=== PATIENT | female | born 1950 | race Caucasian/White ===

== ENCOUNTER → 2017-04-09 09:17 | Outpatient (CLI) | payer MEDICARE, OTHER, SELFPAY ==
--- NOTE | 2017-04-09 09:26 | RAD_ITS ---
STUDY: X-RAY - LUMBAR SPINE REASON FOR EXAM: Female, 67 years old. Back pain. TECHNIQUE: 5 view(s) of the lumbar spine were obtained including oblique views. COMPARISON: None FINDINGS: Normal lumbar lordosis. There is no substantial scoliosis. There is a normal alignment of the vertebrae. Normal vertebral bodies and endplates. Marked degree of disc space narrowing at the L4-L5 level. Facet joint osteoarthritis. There is atherosclerotic calcification of the abdominal aorta without a demonstrated aneurysm. RAD/L/S Spine Min 4 Views IMPRESSION: Moderate degree of disc space narrowing at the L4-L5 level. Electronically Signed: Matias Alvares MD at 15:32 EST Tel [phone], Service support ,
== END ==
PROVIDERS: Family Provider Family Medicine; PCP Family Medicine; Visit Provider Nurse Practitioner Family
DX: M54.5 Low back pain (principal)
CPT/HCPCS: 72110

== ENCOUNTER → 2017-07-05 10:37 | Outpatient (CLI) | payer MEDICARE, OTHER, SELFPAY ==
[2017-07-05 13:09] LABS: AST(SGOT) 22 U/L (15-37); Alanine Aminotransfer ALT/SGPT 30 U/L (13-56); Albumin, Serum 3.5 g/dL (3.2-5.0); Alkaline Phosphatase 84 U/L (45-117); Bilirubin, Direct 0.13 mg/dL (0.00-0.30); Cholesterol 244 mg/dL (200); Globulin 3.5 g/dL (2.2-4.2); High Density Lipoprotein 111 mg/dL; Triglycerides 133 mg/dL; Very Low Density Lipoprotein 27 mg/dL (5-40)
== END ==
PROVIDERS: Physician Assistant Medical; Family Provider Family Medicine; PCP Family Medicine; Visit Provider Internal Medicine Cardiovascular Disease
DX: E78.5 Hyperlipidemia, unspecified (principal); Z79.899 Other long term (current) drug therapy
CPT/HCPCS: 36415; 80061; 80076

== ENCOUNTER → 2017-10-14 06:36 | Outpatient (CLI) | payer MEDICARE, OTHER, SELFPAY ==
--- NOTE | 2017-10-14 16:09 | STRESSREP ---
Stress Test Report Pharmacologic myocardial perfusion stress test. 67-year-old lady with a history of chest pain. Stress protocol: Resting EKG demonstrates normal sinus rhythm with a rate of 71 beats minute normal intervals and noted resting blood pressure is 162/88 mmHg. 0.4 mg regadenoson was infused per usual protocol followed by rapid intravenous saline flush injection continuous EKG monitoring performed. The maximum heart rate attained was 93 bpm which was 61% maximum predicted heart rate maximum workload was 1 metabolic equivalent. Resting blood pressure is 162/88 final blood pressure of 148/86 centimeters of mercury. Myocardial perfusion protocol. 11.2 mCi of technetium 99m sestamibi was injected at rest. 0.4 mg of regadenoson was infused per usual protocol peak infusion 32.9 mCi of technetium 99m sestamibi was injected stress images were obtained stress and rest images were reconstructed and compared in the short axis vertical long horizontal long axis. Gated images were also obtained pre- Perfusion SPECT analysis: Review of the stress images demonstrate normal uptake of tracer noted in all areas of the myocardium. The resting images similarly demonstrate normal uptake of tracer noted in all areas myocardium no areas of reversibility were noted suggest ischemia. Gated SPECT analysis: The gated ejection fraction was 82%. Conclusion: Normal pharmacologic myocardial perfusion stress test. Preserved ejection fraction.
== END ==
PROVIDERS: Family Provider Family Medicine; PCP Family Medicine; Visit Provider Internal Medicine Cardiovascular Disease
DX: Z95.5 Presence of coronary angioplasty implant and graft (principal)
CPT/HCPCS: 78452; 93017; A9500; A4216; J2785

== ENCOUNTER 2017-10-20 16:19 | Emergency (ER) | payer MEDICARE, OTHER, SELFPAY ==
[2017-10-20 16:20] VITALS: BP 148/99; PULSE 86; RESP 16; TEMP 36.3; O2SAT 98; BMI 25.7
--- NOTE | 2017-10-20 17:01 | ED.VISSUMM ---
- ER Visit Summary Date of Service: 10/20/17 Chief Complaint: Right hip pain History of Present Illness: The patient is a 67 F who presents with right hip pain. She complains of pain in the right buttock radiating around to the side of the right hip and down the right side of her thigh. She has a history of prior similar symptoms. She states that she was told that she likely needs a laminectomy. She also reports a history of bursitis. She denies any fall or injury. She denies any fevers or abdominal pain. She denies any prior back surgery. No urinary retention or fecal incontinence. No weakness or paresthesias. Physical Examination: Afebrile vitals are unremarkable Heart regular rate and rhythm Lungs clear Patient does have some reproducible lateral right hip tenderness Negative straight leg raise bilaterally 5 out of 5 dorsiflexion, plantarflexion, extensor hallucis longus and easily palpable dorsalis pedis pulse Test Results: Not indicated Emergency Department Course and Treatment: Patient's history and examination are most consistent with a lumbar radiculopathy, sciatica. She was advised on supportive care. We will place her on a prednisone taper. She did recently take prednisone for a rash so I will do a taper rather than a burst. She was also given a prescription for naproxen. She was advised on signs and symptoms to monitor for and conditions which should prompt return here to the emergency department and she was discharged. Treatment Plan: [] Disposition: Discharge Impression: Sciatica This note was generated with [employer] dictation software. It may contain incorrect words, spelling, and punctuation that were not noted in review of the chart prior to signing ED Disposition - Plan for ED Patient: Chief Complaint: Lower Extremity Injury Referrals: Golden Maloney MD [Primary Care Provider] -
--- NOTE | 2017-10-20 17:03 | ED.DEP ---
ED Disposition - Plan for ED Patient: Chief Complaint: Lower Extremity Injury Instructions: ED Sciatica Prescriptions: Prednisone 10 mg PO UD #33 tab Naproxen [Naprosyn] 500 mg PO BID #14 tab Referrals: Golden Maloney MD [Primary Care Provider] -
== END 2017-10-20 17:22 | disposition home or self-care (01) ==
LOC: ED 17:21
PROVIDERS: Emergency Provider Emergency Medicine; Family Provider Family Medicine; PCP Family Medicine
DX: M54.31 Sciatica, right side (principal); K21.9 Gastro-esophageal reflux disease without esophagitis; I10 Essential (primary) hypertension; E78.00 Pure hypercholesterolemia, unspecified; Z79.82 Long term (current) use of aspirin; Z79.899 Other long term (current) drug therapy
CPT/HCPCS: 99282

== ENCOUNTER → 2017-11-28 08:09 | Outpatient (CLI) | payer MEDICARE, OTHER, SELFPAY ==
--- NOTE | 2017-11-28 08:11 | BI_ITS ---
MAMMOGRAPHY - BILATERAL SCREENING REASON FOR EXAM: Female, 67 years old. Routine annual screening examination. PERTINENT HISTORY: Non-contributory. TECHNIQUE: Digital bilateral breast agnes (3D mammographic acquisition) in the CC and MLO projections. 2-D mediolateral oblique (MLO) and craniocaudad (CC) views of both breasts were obtained. CAD: Full Field Digital Mammography with Computer Added Detection was performed. COMPARISON: Comparison is made with prior study dated November 19, 2016. FINDINGS: Breast Composition: The breasts are heterogeneously dense, which may obscure small masses. There are no dominant masses or suspicious calcifications. No other significant abnormalities are identified. There has been no significant change since the prior study. BI/SCREENING MAMM (CAD), BILAT IMPRESSION: Stable bilateral screening mammogram. Yearly follow-up mammogram recommended. (A) ASSESSMENT CATEGORY: BIRADS Category 1: Negative. A letter regarding these results will be sent to the patient by the facility within 30 days. Approximately 10% of breast cancers are not detected by mammography. A normal mammogram should not delay biopsy of a clinically suspicious abnormality. [id number] Electronically Signed: Matias Alvares MD at 9:24 EDT Tel [phone], Service support ,
== END ==
PROVIDERS: Family Provider Family Medicine; PCP Family Medicine; Visit Provider Nurse Practitioner Women's Health
DX: Z12.31 Encounter for screening mammogram for malignant neoplasm of breast (principal)
CPT/HCPCS: 77063; 77067

== ENCOUNTER → 2017-12-24 13:14 | Outpatient (CLI) | payer MEDICARE, OTHER, SELFPAY ==
--- NOTE | 2017-12-24 13:30 | BD_ITS ---
STUDY: DUAL ENERGY X-RAY ABSORPTIOMETRY / DXA REASON FOR EXAM: Female, 67 years old. The patient is postmenopausal. Loss of height. TECHNIQUE: Bone Mineral Density (BMD) measurements of lumbar spine and bilateral hips were obtained. COMPARISON: Comparison is made with prior study dated August 11, 2015. FINDINGS: Lumbar Spine (L1-L4): g/cm2 (1.009) / T-score (-1.6) / Z-score (0.1) Findings are suggestive of osteopenia with a moderate fracture risk. Increased thoracic kyphosis. Left Femur Total: g/cm2 (0.759) / T-score (-2.0) / Z-score (-0.6) Left Femoral Neck: g/cm2 (0.739) / T-score (-2.2) / Z-score (-0.5) Right Femur Total: g/cm2 (0.725) / T-score (-2.2) / Z-score (-0.9) Right Femoral Neck: g/cm2 (0.719) / T-score (-2.3) / Z-score (-0.7) The T-Scores on the most recent prior examination were: Lumbar Spine (L1-L4): There has been worsening of bone density since the previous examination. Left Femur Total: which represents a worsening of 1.2%. Right Femur Total: which represents a worsening of 4.7%. BD/Dexa Bone Density Study IMPRESSION: The patient is considered osteopenic as outlined below according to World Joni Organization (WHO) criteria with a moderate fracture risk. There has been worsening of bone density since the previous examination. Reference Information: The T-score is the number of standard deviations above or below the standard which is normal for young adults at their peak bone mineral density. The World Health Organization (WHO) interprets the T-scores as follows: Above -1 Normal bone density Between -1 and -2.5 Osteopenia Equal to / or below -2.5 Osteoporosis As a practical clinical guideline, osteopenia may be graded as follows: Mild -1 through -1.5 Moderate -1.6 through -2.0 Severe -2.1 through -2.4 The Z-score is the number of standard deviations above or below age-matched controls. A Z-score of less than -1.5 would be considered abnormal. References: 1. NIH Osteoporosis and Related Bone Diseases http://www.osteo.org 2. International Society for Clinical Densitometry http://www.iscd.org 3. National Osteoporosis Foundation http://www.nof.org Electronically Signed: Matias Alvares MD at 11:26 EDT Tel [phone], Service support ,
== END ==
PROVIDERS: Family Provider Family Medicine; PCP Family Medicine; Visit Provider Obstetrics & Gynecology
DX: E28.39 Other primary ovarian failure (principal)
CPT/HCPCS: 77080

== ENCOUNTER → 2018-01-10 10:36 | Outpatient (CLI) | payer MEDICARE, OTHER, SELFPAY ==
[2018-01-10 11:33] LABS: AST(SGOT) 21 U/L (15-37); Alanine Aminotransfer ALT/SGPT 26 U/L (13-56); Albumin, Serum 3.7 g/dL (3.2-5.0); Alkaline Phosphatase 94 U/L (45-117); Bilirubin, Direct 0.16 mg/dL (0.00-0.30); Cholesterol 249 mg/dL (200); Globulin 3.5 g/dL (2.2-4.2); High Density Lipoprotein 126 mg/dL; Protein, Total 7.2 g/dL (6.4-8.2); Triglycerides 108 mg/dL; Very Low Density Lipoprotein 22 mg/dL (5-40)
== END ==
PROVIDERS: Family Provider Family Medicine; PCP Family Medicine; Referring Provider Internal Medicine Cardiovascular Disease; Visit Provider Internal Medicine Cardiovascular Disease
DX: E78.5 Hyperlipidemia, unspecified (principal)
CPT/HCPCS: 36415; 80061; 80076

== ENCOUNTER → 2018-03-28 12:47 | Outpatient (CLI) | payer MEDICARE, OTHER, SELFPAY ==
[2017-11-28 09:09] VITALS: BMI 26.1
[2018-03-28 14:04] LABS: Anion Gap 9 (5-15); BUN 10 mg/dL (7-18); BUN/Creat Ratio 12.7 RATIO (10-20); Calcium,Total 8.7 mg/dL (8.5-10.1); Chloride 93 mmol/L (98-107); Creatinine, Serum 0.79 mg/dL (0.55-1.02); EST Glomerular Filtration Rate 77 mL/min (>60); Est Glom Filt Rate - Afr Amer 93 mL/min (>60); Glucose 114 mg/dL (74-106); Potassium 3.5 mmol/L (3.5-5.1); Sodium Level 130 mmol/L (136-145)
== END ==
PROVIDERS: Family Provider Family Medicine; PCP Family Medicine; Referring Provider Family Medicine; Visit Provider Family Medicine
DX: E87.1 Hypo-osmolality and hyponatremia (principal)
CPT/HCPCS: 36415; 80048

== ENCOUNTER → 2018-07-03 | Outpatient (CLI) | payer MEDICARE, OTHER, SELFPAY ==
[2018-07-03 11:39] LABS: AST(SGOT) 21 U/L (15-37); Alanine Aminotransfer ALT/SGPT 22 U/L (13-56); Albumin, Serum 3.6 g/dL (3.2-5.0); Alkaline Phosphatase 108 U/L (45-117); Cholesterol 239 mg/dL (200); Globulin 3.3 g/dL (2.2-4.2); High Density Lipoprotein 118 mg/dL; Protein, Total 6.9 g/dL (6.4-8.2); Triglycerides 123 mg/dL; Very Low Density Lipoprotein 25 mg/dL (5-40)
== END | disposition home or self-care (01) ==
PROVIDERS: Family Provider Family Medicine; PCP Family Medicine; Referring Provider Internal Medicine Cardiovascular Disease; Visit Provider Internal Medicine Cardiovascular Disease
DX: E78.5 Hyperlipidemia, unspecified (principal)
CPT/HCPCS: 36415; 80061; 80076

== ENCOUNTER → 2018-08-25 | Outpatient (CLI) | payer MEDICARE, OTHER, SELFPAY ==
--- NOTE | 2018-08-25 08:48 | RAD_ITS ---
STUDY: X-RAY - LUMBAR SPINE REASON FOR EXAM: Female, 68 years old. Backache for 2 weeks, surgery 5 months prior TECHNIQUE: 5 view(s) of the lumbar spine were obtained. COMPARISON: 08/04/2017 FINDINGS: Lumbar spine is intact. There is grade 1 anterolisthesis of L4 on L5, approximately 6 mm which is new since surgery.. Posterior elements are obscured by hardware. There is L3, L4, L5 pedicular screw fusion with vertical interconnecting rods. Hardware is intact, in the expected position with normal bone interface. Mineralization is diffusely decreased. Paraspinous soft tissue shadows are unremarkable. SI joints are normal. RAD/L/S Spine Min 4 Views IMPRESSION: 1. Development of new grade 1 L4-L5 anterolisthesis. 2. Otherwise expected appearance of L3-L5 hardware dorsal fusion. Electronically Signed: Jayshree Verma, at 16:11 EDT Tel , Service support ,
== END | disposition home or self-care (01) ==
LOC: MTRAD 08:46
PROVIDERS: Family Provider Family Medicine; PCP Family Medicine; Referring Provider Family Medicine; Visit Provider Family Medicine
DX: M54.5 Low back pain (principal)
CPT/HCPCS: 72110

== ENCOUNTER → 2018-12-08 | Outpatient (CLI) | payer MEDICARE, OTHER, SELFPAY ==
[2018-09-18 08:39] VITALS: BMI 24.3
--- NOTE | 2018-12-08 10:15 | BI_ITS ---
MAMMOGRAPHY - BILATERAL SCREENING 3-D TOMOSYNTHESIS REASON FOR EXAM: Female, 68 years old. Screening BILATERAL DIGITAL MAMMOGRAM WITH TOMOSYNTHESIS: Mediolateraloblique and craniocaudal views demonstrate no evidence of dominant parenchymal masses. No cluster of microcalcifications or architectural distortion is seen. No evidence of skin thickening is identified. There has been no significant change since 11/28/2017. Breast Density: The breast tissue is extremely dense which may lower the sensitivity of mammography. CAD was used to assist in final assessment. IMPRESSION: NORMAL MAMMOGRAM BILATERALLY. FINAL ASSESSMENT: BIRAD 1 (NEGATIVE) YEARLY MAMMOGRAM RECOMMENDED Approximately 10% of breast cancers are not detected by mammography. A normal mammogram should not delay biopsy of a clinically suspicious abnormality. Electronically Signed: Golden Reed, at 17:24 EDT Tel , Service support , BI/SCREEN MAMM (CAD) W/EWA BRENNAN
== END | disposition home or self-care (01) ==
LOC: OPBI 10:13
PROVIDERS: Family Provider Family Medicine; PCP Family Medicine; Referring Provider Obstetrics & Gynecology; Visit Provider Obstetrics & Gynecology
DX: Z12.31 Encounter for screening mammogram for malignant neoplasm of breast (principal)
CPT/HCPCS: 77063; 77067

== ENCOUNTER → 2019-01-15 | Outpatient (CLI) | payer MEDICARE, OTHER, SELFPAY ==
[2018-12-08 11:38] VITALS: BMI 24.3
[2019-01-15 12:12] LABS: AST(SGOT) 19 U/L (15-37); Alanine Aminotransfer ALT/SGPT 20 U/L (13-56); Albumin, Serum 3.7 g/dL (3.2-5.0); Alkaline Phosphatase 96 U/L (45-117); Bilirubin, Direct 0.15 mg/dL (0.00-0.30); Cholesterol 228 mg/dL (200); Globulin 3.4 g/dL (2.2-4.2); High Density Lipoprotein 97 mg/dL; Protein, Total 7.1 g/dL (6.4-8.2); Triglycerides 107 mg/dL; Very Low Density Lipoprotein 21 mg/dL (5-40)
== END | disposition home or self-care (01) ==
LOC: LAB 10:57
PROVIDERS: Family Provider Family Medicine; PCP Family Medicine; Referring Provider Physician Assistant Medical; Visit Provider Physician Assistant Medical
DX: E78.5 Hyperlipidemia, unspecified (principal)
CPT/HCPCS: 36415; 80061; 80076

== ENCOUNTER → 2019-07-09 10:56 | Outpatient (CLI) | payer MEDICARE, OTHER, SELFPAY ==
[2018-12-08 11:38] VITALS: BMI 24.3
[2019-07-09 11:59] LABS: AST(SGOT) 22 U/L (15-37); Alanine Aminotransfer ALT/SGPT 20 U/L (13-56); Albumin, Serum 3.9 g/dL (3.2-5.0); Alkaline Phosphatase 87 U/L (45-117); Bilirubin, Direct 0.17 mg/dL (0.00-0.30); Cholesterol 202 mg/dL (200); Globulin 3.1 g/dL (2.2-4.2); High Density Lipoprotein 110 mg/dL; Triglycerides 96 mg/dL; Very Low Density Lipoprotein 19 mg/dL (5-40)
== END ==
PROVIDERS: PCP Family Medicine; Referring Provider Internal Medicine Cardiovascular Disease; Visit Provider Internal Medicine Cardiovascular Disease
DX: E78.00 Pure hypercholesterolemia, unspecified (principal)
CPT/HCPCS: 36415; 80061; 80076

== ENCOUNTER → 2019-07-28 15:38 | Outpatient (CLI) | payer MEDICARE, OTHER, SELFPAY ==
[2019-07-28 13:25] VITALS: BMI 24.3
== END ==
PROVIDERS: PCP Family Medicine; Referring Provider Nurse Practitioner Women's Health; Visit Provider Nurse Practitioner Women's Health
DX: R30.0 Dysuria (principal); N94.9 Unspecified condition associated with female genital organs and menstrual cycle
CPT/HCPCS: 87086; 87088

== ENCOUNTER → 2019-09-30 13:43 | Outpatient (CLI) | payer MEDICARE, OTHER, SELFPAY ==
[2019-09-17 09:48] VITALS: BMI 24.0
--- NOTE | 2019-09-30 13:44 | ECHOD_ITS ---
Reason For Study: CAD/ASHD Procedure This was a 2D Doppler, Color Flow transthoracic echocardiogram. Exam performed in department. Left Ventricle Normal LV size. Moderate concentric left ventricular hypertrophy. Left ventricular systolic function is normal. The estimated ejection fraction is 65 %. Stage 1 diastolic dysfunction. No regional wall motion abnormalities noted. Right Ventricle Normal RV size. Normal systolic function. Atria Normal left atrium. Normal right atrium. Mitral Valve There is mild mitral annular calcification. Tricuspid Valve Normal tricuspid valve. Aortic Valve Normal aortic valve. Trisinus/trileaflet aortic valve. Pulmonic Valve Normal pulmonic valve. Great Vessels Normal aortic root. The pulmonary artery is normal size. Normal inferior vena cava. Pericardium/Pleural No pericardial effusion. MMode/2D Measurements & Calculations LVIDd: 3.5 cm IVSd: 1.5 cm Ao root diam: 3.2 cm LVIDs: 1.7 cm LVPWd: 1.5 cm LA dimension: 3.3 cm FS: 50.5 % LAV(MOD-bp): 46.7 ml LA A4 area: 16.6 cm2 RA A4 area: 15.0 cm2 LAV(MOD-bp) Indexed: 27.8 ml/m2 LAV(MOD-sp2): 52.3 ml LAV(MOD-sp4): 41.1 ml Time Measurements MV dec time: 0.26 sec Doppler Measurements & Calculations MV E max michael: 118.6 cm/sec Lat Peak E' Michael: 6.5 cm/sec Med Peak E' Michael: 5.9 cm/sec MV A max michael: 145.1 cm/sec E/E' lat: 18.2 E/E' med: 20.0 MV E/A: 0.82 MV V2 max: 157.9 cm/sec MV P1/2t max michael: 139.6 cm/sec Ao V2 max: 142.7 cm/sec MV max P.0 mmHg MV P1/2t: 106.8 msec Ao max P.1 mmHg MV V2 mean: 90.0 cm/sec MV dec slope: 383.0 cm/sec2 MV mean P.8 mmHg MVA(P1/2t): 2.1 cm2 MV V2 VTI: 50.9 cm LV V1 max: 131.7 cm/sec PA V2 max: 92.5 cm/sec LV V1 max P.9 mmHg Interpretation Summary Normal LV size. Left ventricular systolic function is normal. The estimated ejection fraction is 65 %. Moderate concentric left ventricular hypertrophy. Stage 1 diastolic dysfunction. Ordering Physician: Jeb Turner Referring Physician: Jeb Turner Performed By: Uriah Lea RCS
== END ==
PROVIDERS: PCP Family Medicine; Referring Provider Internal Medicine Cardiovascular Disease; Visit Provider Internal Medicine Cardiovascular Disease
DX: I25.10 Atherosclerotic heart disease of native coronary artery without angina pectoris (principal); R06.00 Dyspnea, unspecified
CPT/HCPCS: 93306

== ENCOUNTER → 2019-10-07 13:46 | Outpatient (CLI) | payer MEDICARE, OTHER, SELFPAY ==
[2019-09-17 09:48] VITALS: BMI 24.0
== END ==
PROVIDERS: PCP Family Medicine; Referring Provider Family Medicine; Visit Provider Family Medicine
DX: Z11.59 Encounter for screening for other viral diseases (principal)
CPT/HCPCS: 87635; U0003

== ENCOUNTER → 2019-10-12 16:50 | Outpatient (CLI) | payer MEDICARE, OTHER, SELFPAY ==
[2019-09-17 09:48] VITALS: BMI 24.0
--- NOTE | 2019-10-12 16:53 | RAD_ITS ---
STUDY: X-RAY - LEFT FOOT CLINICAL: Female, 69 years old. Pain and swelling across the dorsum of the foot. No known injury. TECHNIQUE: 3 view(s) of the foot. COMPARISON: None. FINDINGS: There is a plantar calcaneal spur. Talus and tarsal bones. Mild arthrosis of the visualized subtalar, talonavicular, calcaneocuboid, tarsal and tarsometatarsal articulations. Normal metatarsi. There is degenerative arthrosis of the metatarsophalangeal joint of the hallux with a hallux valgus deformity. Normal tibial and fibular sesamoid bones. Normal phalanges of the great toe. Normal second through fifth metatarsophalangeal joints. Osteoarthrosis of interphalangeal joints of the lesser toes. Normal phalanges of the lesser toes. The soft tissue structures are unremarkable. 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 Electronically Signed: Zander Nova DO at 22:57 EDT Tel [phone], Service support ,
== END ==
PROVIDERS: PCP Family Medicine; Referring Provider Family Medicine; Visit Provider Family Medicine
DX: M79.672 Pain in left foot (principal)
CPT/HCPCS: 73630

== ENCOUNTER → 2019-12-10 09:01 | Outpatient (CLI) | payer MEDICARE, OTHER, SELFPAY ==
[2019-09-17 09:48] VITALS: BMI 24.0
[2019-12-10 10:13] LABS: Hematocrit 25.4 % (37-47); Hemoglobin 7.5 g/dL (12.0-15.0); Mean Corp Hgb Conc 29.5 g/dL (32-36); Mean Corpuscular Hgb 21.2 pg (27.0-32.0); Mean Platelet Vol. 10.9 fl (6.2-12.0); Platelet Count 341 K/mm3 (150-450); RBC Distribution Width CV 16.1 % (11.6-14.6); RBC Distribution Width SD 41.3 fl (35.1-43.9); Red Blood Count 3.53 M/mm3 (4.2-5.4); White Blood Count 5.5 K/mm3 (4.4-11.0)
[2019-12-10 10:30] LABS: Anion Gap 6 (5-15); BUN 16 mg/dL (7-18); BUN/Creat Ratio 19.5 RATIO (10-20); Calcium,Total 8.7 mg/dL (8.5-10.1); Chloride 99 mmol/L (98-107); Creatinine, Serum 0.82 mg/dL (0.55-1.02); EST Glomerular Filtration Rate 73 mL/min (>60); Est Glom Filt Rate - Afr Amer 89 mL/min (>60); Glucose 121 mg/dL (74-106); Magnesium 2.1 mg/dL (1.6-2.6); Potassium 3.5 mmol/L (3.5-5.1); Sodium Level 133 mmol/L (136-145); Thyroid Stim Hormone (TSH) 1.03 uIU/mL (0.358-3.74)
[2019-12-11 08:53] LABS: RET-HE 21.4 pg (30-35); Reticulocyte Count 1.59 % (0.5-1.5)
[2019-12-11 09:09] LABS: Ferritin 4 ng/mL (8-252); Iron 14 ug/dL (50-170)
== END ==
PROVIDERS: PCP Family Medicine; Referring Provider Family Medicine; Visit Provider Family Medicine
DX: R00.2 Palpitations (principal); E28.39 Other primary ovarian failure
CPT/HCPCS: 36415; 80048; 82728; 83540; 83735; 84443; 85027; 85045

== ENCOUNTER → 2019-12-14 12:28 | Outpatient (CLI) | payer MEDICARE, OTHER, SELFPAY ==
[2018-12-08 11:38] VITALS: BMI 24.3
[2019-09-17 09:48] VITALS: BMI 24.0
--- NOTE | 2019-12-14 12:28 | BI_ITS ---
MAMMOGRAPHY - BILATERAL SCREENING REASON FOR EXAM: Female, 69 years old. Routine annual screening examination. PERTINENT HISTORY: Non-contributory. TECHNIQUE: Digital bilateral breast ewa (3D mammographic acquisition) in the CC and MLO projections. 2-D mediolateral oblique (MLO) and craniocaudad (CC) views of both breasts were obtained. CAD: Full Field Digital Mammography with Computer Added Detection was performed. COMPARISON: Comparison is made with prior examination dated 12/08/2018 and 11/28/2017. FINDINGS: Breast Composition: The breasts are heterogeneously dense, which may obscure small masses. There are no dominant masses or suspicious calcifications. No other significant abnormalities are identified. There has been no significant change since the prior study. BI/SCREEN MAMM (CAD) W/EWA BILAT IMPRESSION: Stable bilateral screening mammogram. Yearly follow-up mammogram recommended. (A) ASSESSMENT CATEGORY: BIRADS Category 1: Negative. A letter regarding these results will be sent to the patient by the facility within 30 days. Approximately 10% of breast cancers are not detected by mammography. A normal mammogram should not delay biopsy of a clinically suspicious abnormality. [id number] Electronically Signed: Matias Alvares, at 8:47 EDT , Service support ,
== END ==
PROVIDERS: PCP Family Medicine; Referring Provider Obstetrics & Gynecology; Visit Provider Obstetrics & Gynecology
DX: Z12.31 Encounter for screening mammogram for malignant neoplasm of breast (principal)
CPT/HCPCS: 77063; 77067

== ENCOUNTER → 2019-12-14 16:31 | Outpatient (CLI) | payer MEDICARE, OTHER, SELFPAY ==
[2019-12-14 13:10] VITALS: BMI 24.0
[2019-12-14 18:47] LABS: Absolute Lymphocyte Count 1.51 X10^3/uL (0.83-4.51); Absolute Neutrophil Count 3.8 X10^3/uL (2.0-7.7); Basophil# 0.02 X10^3/uL; Basophil% 0.3 % (0-1); Eosinophil# 0.03 X10^3/uL; Eosinophils% 0.5 % (0-5); Hematocrit 25.2 % (37-47); Hemoglobin 7.4 g/dL (12.0-15.0); Lymphocyte # 1.51 X10^3/ul (4.0); Lymphocyte % 24.4 % (19-41); Mean Corp Hgb Conc 29.4 g/dL (32-36); Mean Corpuscular Hgb 21.2 pg (27.0-32.0); Mean Corpuscular Volume 72.2 fL (81-99); Mean Platelet Vol. 11.1 fl (6.2-12.0); Monocyte# 0.86 X10^3/uL; Monocyte% 13.9 % (0-10); NRBC Flagged by Analyzer 0 % (0-5); Neutrophil # 3.76 X10^3/uL (2.7-7.7); Neutrophil % 60.6 % (47-70); Platelet Count 334 K/mm3 (150-450); RBC Distribution Width CV 16.6 % (11.6-14.6); RBC Distribution Width SD 42.5 fl (35.1-43.9); Red Blood Count 3.49 M/mm3 (4.2-5.4); White Blood Count 6.2 K/mm3 (4.4-11.0)
[2019-12-14 18:55] LABS: Vitamin D,25 Hydroxy 36.4 ng/mL
[2019-12-14 19:06] LABS: ALB/GLOB Ratio 1.1 RATIO (0.9-2.4); AST(SGOT) 14 U/L (15-37); Alanine Aminotransfer ALT/SGPT 19 U/L (13-56); Albumin, Serum 3.6 g/dL (3.2-5.0); Alkaline Phosphatase 95 U/L (45-117); Anion Gap 7 (5-15); BUN 19 mg/dL (7-18); BUN/Creat Ratio 21.5 RATIO (10-20); Calcium,Total 8.7 mg/dL (8.5-10.1); Chloride 94 mmol/L (98-107); Creatinine, Serum 0.88 mg/dL (0.55-1.02); EST Glomerular Filtration Rate 67 mL/min (>60); Est Glom Filt Rate - Afr Amer 81 mL/min (>60); Globulin 3.2 g/dL (2.2-4.2); Glucose 103 mg/dL (74-106); Potassium 3.6 mmol/L (3.5-5.1); Protein, Total 6.8 g/dL (6.4-8.2); Sodium Level 129 mmol/L (136-145); Thyroid Stim Hormone (TSH) 1.55 uIU/mL (0.358-3.74)
== END ==
PROVIDERS: Obstetrics & Gynecology; PCP Family Medicine; Visit Provider Family Medicine
DX: Z12.31 Encounter for screening mammogram for malignant neoplasm of breast (principal); R06.00 Dyspnea, unspecified; Z13.29 Encounter for screening for other suspected endocrine disorder; R53.83 Other fatigue; M85.80 Other specified disorders of bone density and structure, unspecified site
CPT/HCPCS: 36415; 77063; 77067; 80053; 82306; 84443; 85025

== ENCOUNTER → 2020-01-19 10:32 | Outpatient (CLI) | payer MEDICARE, OTHER, SELFPAY ==
[2019-12-14 13:10] VITALS: BMI 24.0
[2020-01-19 12:33] LABS: Absolute Neutrophil Count 5.9 X10^3/uL (2.0-7.7); Basophil# 0.03 X10^3/uL; Basophil% 0.4 % (0-1); Eosinophil# 0.04 X10^3/uL; Eosinophils% 0.5 % (0-5); Hematocrit 31.3 % (37-47); Hemoglobin 9.6 g/dL (12.0-15.0); Lymphocyte % 9.1 % (19-41); Mean Corp Hgb Conc 30.7 g/dL (32-36); Mean Corpuscular Hgb 24.8 pg (27.0-32.0); Mean Corpuscular Volume 80.9 fL (81-99); Mean Platelet Vol. 10.2 fl (6.2-12.0); Monocyte# 0.94 X10^3/uL; Monocyte% 12.3 % (0-10); NRBC Flagged by Analyzer 0 % (0-5); Neutrophil # 5.92 X10^3/uL (2.7-7.7); Neutrophil % 77.2 % (47-70); POSITIVE MORPHOLOGY YES; Platelet Count 462 K/mm3 (150-450); RBC Distribution Width CV 23.2 % (11.6-14.6); RBC Distribution Width SD 65.9 fl (35.1-43.9); Red Blood Count 3.87 M/mm3 (4.2-5.4); White Blood Count 7.7 K/mm3 (4.4-11.0)
[2020-01-19 12:41] LABS: Differential Indicated SCAN CRITERIA MET
[2020-01-19 13:15] LABS: Anion Gap 5 (5-15); BUN 9 mg/dL (7-18); BUN/Creat Ratio 11.5 RATIO (10-20); Calcium,Total 9.1 mg/dL (8.5-10.1); Chloride 95 mmol/L (98-107); Creatinine, Serum 0.78 mg/dL (0.55-1.02); EST Glomerular Filtration Rate 77 mL/min (>60); Est Glom Filt Rate - Afr Amer 93 mL/min (>60); Glucose 145 mg/dL (74-106); Magnesium 1.4 mg/dL (1.6-2.6); Potassium 3.5 mmol/L (3.5-5.1); Sodium Level 129 mmol/L (136-145); Thyroid Stim Hormone (TSH) 1.22 uIU/mL (0.358-3.74)
[2020-01-19 13:32] LABS: Red Cell Morphology N CYTIC NORMAL (NORM C&C)
[2020-01-19 13:33] LABS: Anisocytosis 2+
== END ==
PROVIDERS: PCP Family Medicine; Referring Provider Family Medicine; Visit Provider Family Medicine
DX: R00.2 Palpitations (principal); D64.9 Anemia, unspecified
CPT/HCPCS: 36415; 80048; 83735; 84443; 85025

== ENCOUNTER → 2020-02-04 10:23 | Outpatient (CLI) | payer MEDICARE, OTHER, SELFPAY ==
[2019-12-14 13:10] VITALS: BMI 24.0
[2020-02-04 12:28] LABS: Anion Gap 5 (5-15); BUN 12 mg/dL (7-18); BUN/Creat Ratio 16.8 RATIO (10-20); Calcium,Total 8.9 mg/dL (8.5-10.1); Chloride 99 mmol/L (98-107); Creatinine, Serum 0.72 mg/dL (0.55-1.02); EST Glomerular Filtration Rate 86 mL/min (>60); Est Glom Filt Rate - Afr Amer 104 mL/min (>60); Glucose 116 mg/dL (74-106); Magnesium 1.9 mg/dL (1.6-2.6); Potassium 4.3 mmol/L (3.5-5.1); Sodium Level 132 mmol/L (136-145)
== END ==
PROVIDERS: PCP Family Medicine; Visit Provider Family Medicine
DX: E87.1 Hypo-osmolality and hyponatremia (principal); R79.0 Abnormal level of blood mineral
CPT/HCPCS: 36415; 80048; 83735

== ENCOUNTER → 2020-02-11 10:27 | Outpatient (CLI) | payer MEDICARE, OTHER, SELFPAY ==
[2019-12-14 13:10] VITALS: BMI 24.0
[2020-02-11 12:01] LABS: AST(SGOT) 24 U/L (15-37); Alanine Aminotransfer ALT/SGPT 24 U/L (13-56); Albumin, Serum 3.2 g/dL (3.2-5.0); Alkaline Phosphatase 125 U/L (45-117); Bilirubin, Direct 0.12 mg/dL (0.00-0.30); Cholesterol 164 mg/dL (200); Globulin 3.5 g/dL (2.2-4.2); High Density Lipoprotein 72 mg/dL; Protein, Total 6.7 g/dL (6.4-8.2); Triglycerides 94 mg/dL; Very Low Density Lipoprotein 19 mg/dL (5-40)
== END ==
PROVIDERS: PCP Family Medicine; Referring Provider Internal Medicine Cardiovascular Disease; Visit Provider Internal Medicine Cardiovascular Disease
DX: E78.00 Pure hypercholesterolemia, unspecified (principal); E78.5 Hyperlipidemia, unspecified
CPT/HCPCS: 36415; 80061; 80076

== ENCOUNTER → 2020-02-18 09:50 | Outpatient (CLI) | payer MEDICARE, OTHER, SELFPAY ==
[2019-12-14 13:10] VITALS: BMI 24.0
--- NOTE | 2020-02-18 09:54 | BD_ITS ---
STUDY: DUAL ENERGY X-RAY ABSORPTIOMETRY / DXA REASON FOR EXAM: Female, 69 years old. [employer] -- HX OF HRT -- HX OF SMOKING IN PAST -- TAKES CALCIUM -- HX OF TAKING FOSAMAX- NOTHING RECENTLY -- DOES MODERATE AMOUNT OF EXERCISE -- HX OF FOOT FX -- HX OF L3-5 FUSION -- NO APARNA TECHNIQUE: Bone Mineral Density (BMD) measurements of lumbar spine and bilateral hips were obtained. COMPARISON: Comparison is made with prior study dated 04/12/2015. FINDINGS: Lumbar Spine (L1-L4): g/cm2 (0.924) / T-score (-2.0) / Z-score (-0.3) Findings are suggestive of osteopenia with a moderate fracture risk. Left Femur Total: g/cm2 (0.736) / T-score (-2.2) / Z-score (-0.7) Left Femoral Neck: g/cm2 (0.728) / T-score (-2.2) / Z-score (-0.5) Right Femur Total: g/cm2 (0.692) / T-score (-2.5) / Z-score (-1.0) Right Femoral Neck: g/cm2 (0.693) / T-score (-2.5) / Z-score (-0.8) The T-Scores on the most recent prior examination were: Lumbar Spine (L1-L4): There has been worsening of bone density since the previous examination. Left Femur Total: which represents a worsening of 3%. Right Femur Total: which represents a worsening of 4.6%. BD/Dexa Bone Density Study IMPRESSION: The patient is considered osteopenic as outlined below according to World Joni Organization (WHO) criteria with a high fracture risk. There has been worsening of bone density since the previous examination. Reference Information: The T-score is the number of standard deviations above or below the standard which is normal for young adults at their peak bone mineral density. The World Health Organization (WHO) interprets the T-scores as follows: Above -1 Normal bone density Between -1 and -2.5 Osteopenia Equal to / or below -2.5 Osteoporosis As a practical clinical guideline, osteopenia may be graded as follows: Mild -1 through -1.5 Moderate -1.6 through -2.0 Severe -2.1 through -2.4 The Z-score is the number of standard deviations above or below age-matched controls. A Z-score of less than -1.5 would be considered abnormal. References: 1. NIH Osteoporosis and Related Bone Diseases www osteo.org 2. International Society for Clinical Densitometry www iscd.org 3. National Osteoporosis Foundation www nof.org Electronically Signed: Matias Alvares, at 12:29 EST , Service support ,
== END ==
PROVIDERS: PCP Family Medicine; Referring Provider Obstetrics & Gynecology; Visit Provider Obstetrics & Gynecology
DX: Z78.0 Asymptomatic menopausal state (principal)
CPT/HCPCS: 77080

== ENCOUNTER → 2020-02-24 14:30 | Outpatient (CLI) | payer MEDICARE, OTHER, SELFPAY ==
[2019-12-14 13:10] VITALS: BMI 24.0
--- NOTE | 2020-02-24 14:33 | RAD_ITS ---
STUDY: X-RAY - ABDOMEN/PELVIS REASON FOR EXAM: Female, 69 years old. Abdominal pain TECHNIQUE: An upright and supine image of the abdomen and pelvis were obtained. COMPARISON: None. FINDINGS: Normal visualized lung bases. There is an unremarkable bowel gas pattern. There is no demonstrated free abdominal air. There are vascular calcifications present. There are postsurgical changes of the mid/lower lumbar spine. There are degenerative changes of the hips. RAD/Abd Inc Decub and/or Erect IMPRESSION: Nonspecific bowel gas pattern. Electronically Signed: Mary Merritt MD at 15:37 EST Tel , Service support ,
[2020-02-24 15:38] LABS: Absolute Lymphocyte Count 1.26 X10^3/uL (0.83-4.51); Absolute Neutrophil Count 6.7 X10^3/uL (2.0-7.7); Basophil# 0.02 X10^3/uL; Basophil% 0.2 % (0-1); Eosinophil# 0.05 X10^3/uL; Eosinophils% 0.6 % (0-5); Hematocrit 37.3 % (37-47); Hemoglobin 11.7 g/dL (12.0-15.0); Lymphocyte # 1.26 X10^3/ul (4.0); Lymphocyte % 14.2 % (19-41); Mean Corp Hgb Conc 31.4 g/dL (32-36); Mean Corpuscular Hgb 26.6 pg (27.0-32.0); Mean Corpuscular Volume 84.8 fL (81-99); Monocyte# 0.82 X10^3/uL; Monocyte% 9.2 % (0-10); NRBC Flagged by Analyzer 0 % (0-5); Neutrophil # 6.72 X10^3/uL (2.7-7.7); Neutrophil % 75.5 % (47-70); POSITIVE MORPHOLOGY YES; Platelet Count 309 K/mm3 (150-450); RBC Distribution Width CV 20.1 % (11.6-14.6); RBC Distribution Width SD 62.4 fl (35.1-43.9); White Blood Count 8.9 K/mm3 (4.4-11.0)
[2020-02-24 15:41] LABS: Differential Indicated SCAN CRITERIA MET
[2020-02-24 15:58] LABS: AST(SGOT) 20 U/L (15-37); Alanine Aminotransfer ALT/SGPT 23 U/L (13-56); Albumin, Serum 3.6 g/dL (3.2-5.0); Alkaline Phosphatase 121 U/L (45-117); Anion Gap 6 (5-15); BUN 10 mg/dL (7-18); BUN/Creat Ratio 14.8 RATIO (10-20); CRP 6.75 mg/L (0.0-3.0); Calcium,Total 8.9 mg/dL (8.5-10.1); Chloride 97 mmol/L (98-107); Creatinine, Serum 0.68 mg/dL (0.55-1.02); EST Glomerular Filtration Rate 91 mL/min (>60); Est Glom Filt Rate - Afr Amer 111 mL/min (>60); Globulin 3.5 g/dL (2.2-4.2); Glucose 108 mg/dL (74-106); Potassium 3.8 mmol/L (3.5-5.1); Protein, Total 7.1 g/dL (6.4-8.2); Sodium Level 133 mmol/L (136-145)
[2020-02-24 16:00] LABS: Anisocytosis 1+; Differential Comment SCANNED
== END ==
PROVIDERS: PCP Family Medicine; Referring Provider Family Medicine; Visit Provider Family Medicine
DX: R10.9 Unspecified abdominal pain (principal)
CPT/HCPCS: 36415; 74019; 80053; 85025; 86140

== ENCOUNTER → 2020-03-25 13:51 | Outpatient (CLI) | payer MEDICARE, OTHER, SELFPAY ==
[2020-03-18 10:34] VITALS: BMI 24.3
[2020-03-25 14:15] VITALS: BP 152/85; PULSE 72; RESP 16; TEMP 37; O2SAT 99; BMI 24.3
[2020-03-25] MEDS: DENOSUMAB 60 MG/ML SQ (14:24)
== END ==
PROVIDERS: PCP Family Medicine; Referring Provider Internal Medicine Endocrinology, Diabetes & Metabolism; Visit Provider Internal Medicine Endocrinology, Diabetes & Metabolism
DX: M81.0 Age-related osteoporosis without current pathological fracture (principal)
CPT/HCPCS: 96372; J0897

== ENCOUNTER → 2020-04-01 10:57 | Outpatient (CLI) | payer MEDICARE, OTHER, SELFPAY ==
[2020-03-25 14:15] VITALS: BMI 24.3
[2020-04-01 12:41] LABS: Anion Gap 6 (5-15); BUN 16 mg/dL (7-18); BUN/Creat Ratio 25.5 RATIO (10-20); Chloride 94 mmol/L (98-107); Creatinine, Serum 0.63 mg/dL (0.55-1.02); EST Glomerular Filtration Rate 99 mL/min (>60); Est Glom Filt Rate - Afr Amer 120 mL/min (>60); Glucose 83 mg/dL (74-106); Magnesium 2.1 mg/dL (1.6-2.6); Potassium 4.5 mmol/L (3.5-5.1); Sodium Level 129 mmol/L (136-145)
== END ==
PROVIDERS: PCP Family Medicine; Referring Provider Family Medicine; Visit Provider Family Medicine
DX: R79.0 Abnormal level of blood mineral (principal); M81.0 Age-related osteoporosis without current pathological fracture
CPT/HCPCS: 36415; 80048; 83735

== ENCOUNTER → 2020-05-03 13:46 | Outpatient (CLI) | payer MEDICARE, OTHER, SELFPAY ==
[2020-03-25 14:15] VITALS: BMI 24.3
[2020-05-03 15:10] LABS: Hematocrit 38.8 % (37-47); Hemoglobin 12.8 g/dL (12.0-15.0); Mean Corpuscular Hgb 28.3 pg (27.0-32.0); Mean Corpuscular Volume 85.8 fL (81-99); Mean Platelet Vol. 10.6 fl (6.2-12.0); Platelet Count 274 K/mm3 (150-450); RBC Distribution Width CV 16.4 % (11.6-14.6); Red Blood Count 4.52 M/mm3 (4.2-5.4); White Blood Count 9.2 K/mm3 (4.4-11.0)
[2020-05-03 15:44] LABS: Anion Gap 7 (5-15); BUN 22 mg/dL (7-18); BUN/Creat Ratio 25.6 RATIO (10-20); Calcium,Total 8.6 mg/dL (8.5-10.1); Chloride 92 mmol/L (98-107); Creatinine, Serum 0.86 mg/dL (0.55-1.02); EST Glomerular Filtration Rate 69 mL/min (>60); Est Glom Filt Rate - Afr Amer 84 mL/min (>60); Ferritin 27 ng/mL (8-252); Glucose 85 mg/dL (74-106); Iron 92 ug/dL (50-170); Potassium 3.1 mmol/L (3.5-5.1); Sodium Level 131 mmol/L (136-145)
== END ==
PROVIDERS: PCP Family Medicine; Referring Provider Family Medicine; Visit Provider Family Medicine
DX: I10 Essential (primary) hypertension (principal); D64.9 Anemia, unspecified; E87.1 Hypo-osmolality and hyponatremia; M81.0 Age-related osteoporosis without current pathological fracture
CPT/HCPCS: 36415; 80048; 82728; 83540; 83735; 85027

== ENCOUNTER 2020-05-30 11:42 | Emergency (ER) | payer MEDICARE, OTHER, SELFPAY ==
[2020-03-25 14:15] VITALS: BMI 24.3
[2020-05-30 11:44] VITALS: BP 167/100; PULSE 67; RESP 14; TEMP 35.5; O2SAT 99; BMI 24.2
[2020-05-30 11:51] VITALS: BP 181/97
--- NOTE | 2020-05-30 11:53 | EKG12_ITS ---
Test Reason : CP Blood Pressure : / mmHG Vent. Rate : 063 BPM Atrial Rate : 063 BPM P-R Int : 162 ms QRS Dur : 074 ms QT Int : 400 ms P-R-T Axes : 040 017 056 degrees QTc Int : 409 ms Normal sinus rhythm T wave abnormality (peaked): consider metabolic effect (hyperkalemia) Confirmed by JOSE TILLMAN, CRYSTAL ([id number]), script editor SUZANNE LIMA ([id number]) on 06/02/2020 9:38:56 AM Referred By: Nadege Ashby Confirmed By:CRYSTAL GARCIA MD
[2020-05-30 12:20] VITALS: BP 169/84; PULSE 63
[2020-05-30 12:43] VITALS: BP 151/84
[2020-05-30 13:44] LABS: Absolute Lymphocyte Count 1.03 X10^3/uL (0.83-4.51); Absolute Neutrophil Count 4.4 X10^3/uL (2.0-7.7); Basophil# 0.02 X10^3/uL; Basophil% 0.3 % (0-1); Eosinophil# 0.02 X10^3/uL; Eosinophils% 0.3 % (0-5); Hematocrit 38.2 % (37-47); Hemoglobin 12.4 g/dL (12.0-15.0); Lymphocyte # 1.03 X10^3/ul (4.0); Lymphocyte % 16.7 % (19-41); Mean Corp Hgb Conc 32.5 g/dL (32-36); Mean Corpuscular Hgb 29.2 pg (27.0-32.0); Mean Corpuscular Volume 90.1 fL (81-99); Mean Platelet Vol. 10.3 fl (6.2-12.0); Monocyte# 0.64 X10^3/uL; Monocyte% 10.4 % (0-10); NRBC Flagged by Analyzer 0 % (0-5); Neutrophil # 4.44 X10^3/uL (2.7-7.7); Platelet Count 207 K/mm3 (150-450); RBC Distribution Width CV 17.4 % (11.6-14.6); RBC Distribution Width SD 57.9 fl (35.1-43.9); Red Blood Count 4.24 M/mm3 (4.2-5.4); White Blood Count 6.2 K/mm3 (4.4-11.0)
[2020-05-30 14:08] VITALS: BP 149/80; PULSE 66; RESP 14; O2SAT 99
--- NOTE | 2020-05-30 14:21 | ED.VISSUMM ---
- ER Visit Summary Date of Service: 05/30/20 Chief Complaint: Hypertension History of Present Illness: The patient is a 70 F who presents with elevated blood pressures have been intermittent over the last 5 days. Patient states today her blood pressure was 180/100. Patient states she was having some burning in her chest and down both arms and both legs. Patient states nothing makes it worse and nothing makes it better. Patient denies any shortness of breath. Patient denies any cough. Patient denies any nausea or vomiting. Patient denies any abdominal pain or back pain. Patient states she has some mild general weakness. Patient states she did take a tablet of clonidine 0.1 mg prior to arrival. Patient states this was prescribed for her to take as needed for elevated blood pressure. Physical Examination: Vital signs are stable except for her blood pressure of 167/100 initially. Patient's blood pressure was 151/84 while I was in the room. Patient is in no acute distress. Patient is afebrile. Oral mucosa is pink and moist. Neck is supple. Trachea is midline. There is no JVD. Heart was regular rate and rhythm. Lungs are clear and equal bilaterally. Abdomen is soft. Bowel sounds are normal. There is no tenderness. Cranial nerves II through XII are intact. There are no focal motor or sensory deficits noted. Extremities are intact. There is no calf tenderness or edema. Test Results: EKG was obtained. On my interpretation, it showed a normal sinus rhythm with a rate of 63. NE interval, QRS interval, and QTc intervals were all normal. [place] was normal. There are no acute ST or T wave changes. Patient had a comprehensive metabolic profile drawn earlier today and this was essentially within normal limits. CBC and troponin were obtained and were normal. Emergency Department Course and Treatment: With the patient's blood pressure improving, I did not want to give her any antihypertensives at this time. Patient was instructed to keep a log of her blood pressures. Patient was instructed to follow-up with her primary care physician in 5 to 7 days. Patient understood and was agreeable with the plan. All questions were answered. Disposition: Discharge home Impression: 1. Hypertension This note was generated with [employer] software. It may contain incorrect words, spelling, and punctuation that were not noted in review of the chart prior to signing ED Disposition - Plan for ED Patient: Disposition: Home or Assisted Living Diagnosis: Hypertension, Essential (primary) hypertension Instructions: ED Hypertension, Established Referrals: Rafael Donahue MD [Primary Care Provider] - 3-5 Days
[2020-05-30 14:55] VITALS: BP 166/87; PULSE 67; RESP 17; O2SAT 99
== END 2020-05-30 14:56 | disposition home or self-care (01) ==
PROVIDERS: Emergency Provider Emergency Medicine; PCP Family Medicine
DX: I10 Essential (primary) hypertension (principal); R53.1 Weakness; I25.10 Atherosclerotic heart disease of native coronary artery without angina pectoris
CPT/HCPCS: 84484; 85025; 93005; 99282

== ENCOUNTER → 2020-06-01 07:17 | Outpatient (CLI) | payer MEDICARE, OTHER, SELFPAY ==
[2020-03-25 14:15] VITALS: BMI 24.3
[2020-05-30 11:34] LABS: Anion Gap 5 (5-15); BUN 11 mg/dL (7-18); Calcium,Total 8.8 mg/dL (8.5-10.1); Chloride 100 mmol/L (98-107); Creatinine, Serum 0.73 mg/dL (0.55-1.02); EST Glomerular Filtration Rate 83 mL/min (>60); Est Glom Filt Rate - Afr Amer 101 mL/min (>60); Glucose 112 mg/dL (74-106); Potassium 3.7 mmol/L (3.5-5.1); Sodium Level 135 mmol/L (136-145)
[2020-05-30 11:44] VITALS: BMI 24.2
--- NOTE | 2020-06-01 07:53 | MRI_ITS ---
STUDY: MRI LUMBAR SPINE WITH AND WITHOUT CONTRAST REASON FOR EXAM: Female, 70 years old. STENOSIS TECHNIQUE: Standardized fat and water weighted pulse sequences were obtained in the sagittal and axial planes. IV yes yes was administered for the contrast portion of the examination. COMPARISON: None FINDINGS: Normal lumbar lordosis. There is no substantial scoliosis. Normal conus medullaris that terminates at the L1/L2. L1-2: There is minimal disc space narrowing and endplate spondylosis. There is no significant disc herniation, central canal or foraminal stenosis. L2-3: There is mild disc space narrowing and endplates spondylosis. Moderate facet arthropathy with grade 1 anterolisthesis and mild disc bulge with mild central canal stenosis. Mild right and mild left foraminal stenosis. L3-4: There is mild disc space narrowing and endplates spondylosis. There is posterior transpedicular screw fusion and decompression laminectomy. There is no demonstrated central canal or foraminal stenosis. There is grade 1 anterolisthesis. L4-5: There is severe disc space narrowing and endplates spondylosis.. There is posterior transpedicular screw fusion with grade 1 anterolisthesis and decompression laminectomy. There is no demonstrated central canal stenosis. There is mild right and minimal left foraminal stenosis. L5-S1: There is minimal disc space narrowing and endplate spondylosis. There is no significant disc herniation, central canal or foraminal stenosis. Mild facet arthropathy. Decompression laminectomy. Normal visualized sacral ala. MRI/Spine Lumbar W/WO Contrast IMPRESSION: L2/L3: Facet arthropathy with grade 1 anterolisthesis. L3-L5 posterior fusion and laminectomies. Electronically Signed: Carlo Rico MD at 8:18 EDT Tel , Service support ,
== END ==
PROVIDERS: PCP Family Medicine; Referring Provider Nurse Practitioner Family; Visit Provider Nurse Practitioner Family
DX: M51.37 Other intervertebral disc degeneration, lumbosacral region (principal); M54.17 Radiculopathy, lumbosacral region; M47.817 Spondylosis without myelopathy or radiculopathy, lumbosacral region; M48.07 Spinal stenosis, lumbosacral region; M81.0 Age-related osteoporosis without current pathological fracture
CPT/HCPCS: 36415; 72158; 80048; A9575

== ENCOUNTER → 2020-07-04 10:44 | Outpatient (CLI) | payer MEDICARE, OTHER, SELFPAY | PROVIDERS: PCP Family Medicine; Referring Provider Internal Medicine Cardiovascular Disease; Visit Provider Internal Medicine Cardiovascular Disease | DX: M81.0 Age-related osteoporosis without current pathological fracture (principal) ==

== ENCOUNTER → 2020-07-05 11:19 | Outpatient (CLI) | payer MEDICARE, OTHER, SELFPAY ==
[2020-07-05 16:12] LABS: Anion Gap 6 (5-15); BUN 11 mg/dL (7-18); Calcium,Total 9.1 mg/dL (8.5-10.1); Chloride 96 mmol/L (98-107); Creatinine, Serum 0.69 mg/dL (0.55-1.02); EST Glomerular Filtration Rate 90 mL/min (>60); Est Glom Filt Rate - Afr Amer 108 mL/min (>60); Glucose 92 mg/dL (74-106); Magnesium 2.1 mg/dL (1.6-2.6); Potassium 4.8 mmol/L (3.5-5.1); Sodium Level 129 mmol/L (136-145)
== END ==
PROVIDERS: PCP Family Medicine; Referring Provider Family Medicine; Visit Provider Family Medicine
DX: R25.2 Cramp and spasm (principal)
CPT/HCPCS: 36415; 80048; 83735

== ENCOUNTER → 2020-07-12 09:22 | Outpatient (CLI) | payer MEDICARE, OTHER, SELFPAY ==
[2020-07-12 11:03] LABS: Anion Gap 6 (5-15); BUN 12 mg/dL (7-18); BUN/Creat Ratio 16.6 RATIO (10-20); Calcium,Total 8.9 mg/dL (8.5-10.1); Chloride 100 mmol/L (98-107); Creatinine, Serum 0.72 mg/dL (0.55-1.02); EST Glomerular Filtration Rate 84 mL/min (>60); Est Glom Filt Rate - Afr Amer 102 mL/min (>60); Glucose 133 mg/dL (74-106); Potassium 3.9 mmol/L (3.5-5.1); Sodium Level 132 mmol/L (136-145)
== END ==
PROVIDERS: PCP Family Medicine; Referring Provider Family Medicine; Visit Provider Family Medicine
DX: I10 Essential (primary) hypertension (principal)
CPT/HCPCS: 36415; 80048

== ENCOUNTER → 2020-07-27 11:09 | Outpatient (CLI) | payer MEDICARE, OTHER, SELFPAY ==
[2020-07-27 12:37] LABS: Anion Gap 6 (5-15); BUN 12 mg/dL (7-18); BUN/Creat Ratio 17.5 RATIO (10-20); Calcium,Total 8.7 mg/dL (8.5-10.1); Chloride 101 mmol/L (98-107); Creatinine, Serum 0.69 mg/dL (0.55-1.02); EST Glomerular Filtration Rate 90 mL/min (>60); Est Glom Filt Rate - Afr Amer 108 mL/min (>60); Glucose 102 mg/dL (74-106); Potassium 4.2 mmol/L (3.5-5.1); Sodium Level 135 mmol/L (136-145)
== END ==
PROVIDERS: PCP Family Medicine; Referring Provider Family Medicine; Visit Provider Family Medicine
DX: I10 Essential (primary) hypertension (principal)
CPT/HCPCS: 36415; 80048

== ENCOUNTER → 2020-08-17 10:49 | Outpatient (CLI) | payer MEDICARE, OTHER, SELFPAY ==
[2020-08-17 12:09] LABS: AST(SGOT) 28 U/L (15-37); Alanine Aminotransfer ALT/SGPT 29 U/L (13-56); Albumin, Serum 3.7 g/dL (3.2-5.0); Alkaline Phosphatase 80 U/L (45-117); Bilirubin, Direct 0.21 mg/dL (0.00-0.30); Cholesterol 206 mg/dL (200); Globulin 3.4 g/dL (2.2-4.2); High Density Lipoprotein 119 mg/dL; Protein, Total 7.1 g/dL (6.4-8.2); Triglycerides 93 mg/dL; Very Low Density Lipoprotein 19 mg/dL (5-40)
== END ==
PROVIDERS: PCP Family Medicine; Referring Provider Internal Medicine Cardiovascular Disease; Visit Provider Internal Medicine Cardiovascular Disease
DX: E78.00 Pure hypercholesterolemia, unspecified (principal); E78.5 Hyperlipidemia, unspecified
CPT/HCPCS: 36415; 80061; 80076

== ENCOUNTER → 2020-09-12 10:17 | Outpatient (CLI) | payer MEDICARE, OTHER, SELFPAY ==
[2020-09-12 13:17] LABS: Anion Gap 6 (5-15); BUN 14 mg/dL (7-18); BUN/Creat Ratio 17.8 RATIO (10-20); Calcium,Total 8.6 mg/dL (8.5-10.1); Chloride 101 mmol/L (98-107); Creatinine, Serum 0.79 mg/dL (0.55-1.02); EST Glomerular Filtration Rate 77 mL/min (>60); Est Glom Filt Rate - Afr Amer 93 mL/min (>60); Glucose 152 mg/dL (74-106); Potassium 3.7 mmol/L (3.5-5.1); Sodium Level 135 mmol/L (136-145)
== END ==
PROVIDERS: PCP Family Medicine; Referring Provider Family Medicine; Visit Provider Family Medicine
DX: E87.1 Hypo-osmolality and hyponatremia (principal)
CPT/HCPCS: 36415; 80048

== ENCOUNTER → 2020-09-30 13:56 | Outpatient (CLI) | payer MEDICARE, OTHER, SELFPAY ==
[2020-03-18 10:34] VITALS: BMI 24.3
[2020-09-15 09:50] VITALS: BMI 24.9
[2020-09-30 14:07] VITALS: BP 149/78; PULSE 75; RESP 16; TEMP 35.9; O2SAT 99
[2020-09-30] MEDS: DENOSUMAB 60 MG/ML SC (14:09)
== END ==
PROVIDERS: PCP Family Medicine; Referring Provider Internal Medicine Endocrinology, Diabetes & Metabolism; Visit Provider Internal Medicine Endocrinology, Diabetes & Metabolism
DX: M81.0 Age-related osteoporosis without current pathological fracture (principal)
CPT/HCPCS: 96372; J0897

== ENCOUNTER → 2020-11-04 14:55 | Outpatient (CLI) | payer MEDICARE, OTHER, SELFPAY ==
[2020-11-04 17:38] LABS: Absolute Lymphocyte Count 1.08 X10^3/uL (0.83-4.51); Absolute Neutrophil Count 4.6 X10^3/uL (2.0-7.7); Basophil# 0.03 X10^3/uL; Basophil% 0.5 % (0-1); Eosinophil# 0.04 X10^3/uL; Eosinophils% 0.6 % (0-5); Hematocrit 37.9 % (37-47); Hemoglobin 12.6 g/dL (12.0-15.0); Lymphocyte # 1.08 X10^3/ul (0.83-4.51); Lymphocyte % 17.1 % (19-41); Mean Corp Hgb Conc 33.2 g/dL (32-36); Mean Corpuscular Volume 90.2 fL (81-99); Mean Platelet Vol. 11.3 fl (6.2-12.0); Monocyte# 0.55 X10^3/uL; Monocyte% 8.7 % (0-10); NRBC Flagged by Analyzer 0 % (0-5); Neutrophil # 4.59 X10^3/uL (2.7-7.7); Neutrophil % 72.8 % (47-70); Platelet Count 236 K/mm3 (150-450); RBC Distribution Width CV 13.8 % (11.6-14.6); RBC Distribution Width SD 45.7 fl (35.1-43.9); White Blood Count 6.3 K/mm3 (4.4-11.0)
[2020-11-04 17:53] LABS: Vitamin B12 273 pg/mL (211-911); Vitamin D,25 Hydroxy 33.7 ng/mL
[2020-11-04 17:58] LABS: AST(SGOT) 28 U/L (15-37); Alanine Aminotransfer ALT/SGPT 34 U/L (13-56); Albumin, Serum 3.5 g/dL (3.2-5.0); Alkaline Phosphatase 87 U/L (45-117); Anion Gap 5 (5-15); BUN 12 mg/dL (7-18); BUN/Creat Ratio 16.8 RATIO (10-20); Calcium,Total 8.8 mg/dL (8.5-10.1); Chloride 101 mmol/L (98-107); Creatinine, Serum 0.72 mg/dL (0.55-1.02); EST Glomerular Filtration Rate 85 mL/min (>60); Est Glom Filt Rate - Afr Amer 103 mL/min (>60); Globulin 3.6 g/dL (2.2-4.2); Glucose 101 mg/dL (74-106); Iron 71 ug/dL (50-170); Potassium 4.4 mmol/L (3.5-5.1); Protein, Total 7.1 g/dL (6.4-8.2); Sodium Level 133 mmol/L (136-145); Thyroid Stim Hormone (TSH) 0.71 uIU/mL (0.358-3.74)
[2020-11-04 18:07] LABS: Erythrocyte Sedimentation Rate 10 mm/hr (0-30)
== END ==
PROVIDERS: PCP Family Medicine; Referring Provider Family Medicine; Visit Provider Family Medicine
DX: R53.83 Other fatigue (principal); R19.7 Diarrhea, unspecified; E55.9 Vitamin D deficiency, unspecified
CPT/HCPCS: 36415; 80053; 82306; 82607; 83540; 84443; 85025; 85652

== ENCOUNTER → 2020-11-21 10:23 | Outpatient (CLI) | payer MEDICARE, OTHER, SELFPAY ==
[2020-11-21 12:27] LABS: Anion Gap 1 (5-15); BUN 11 mg/dL (7-18); BUN/Creat Ratio 15.7 RATIO (10-20); Calcium,Total 8.8 mg/dL (8.5-10.1); Chloride 103 mmol/L (98-107); EST Glomerular Filtration Rate 87 mL/min (>60); Est Glom Filt Rate - Afr Amer 106 mL/min (>60); Glucose 158 mg/dL (74-106); Potassium 4.1 mmol/L (3.5-5.1); Sodium Level 134 mmol/L (136-145)
== END ==
PROVIDERS: PCP Family Medicine; Visit Provider Family Medicine
DX: E87.1 Hypo-osmolality and hyponatremia (principal)
CPT/HCPCS: 36415; 80048

== ENCOUNTER → 2020-12-19 11:47 | Outpatient (CLI) | payer MEDICARE, OTHER, SELFPAY ==
--- NOTE | 2020-12-19 11:51 | BI_ITS ---
MAMMOGRAPHY - BILATERAL SCREENING REASON FOR EXAM: Female, 70 years old. Routine annual screening examination. PERTINENT HISTORY: Non-contributory. TECHNIQUE: Digital bilateral breast ewa (3D mammographic acquisition) in the CC and MLO projections. 2-D mediolateral oblique (MLO) and craniocaudad (CC) views of both breasts were obtained. CAD: Full Field Digital Mammography with Computer Added Detection was performed. COMPARISON: Comparison is made with prior study dated 12/14/2019 and 12/08/2018. FINDINGS: Breast Composition: The breasts are heterogeneously dense, which may obscure small masses. There are no dominant masses or suspicious calcifications. No other significant abnormalities are identified. There has been no significant change since the prior study. BI/SCRN MAMM (CAD)W/EWA BILAT IMPRESSION: Stable bilateral screening mammogram. Yearly follow-up mammogram recommended. (A) ASSESSMENT CATEGORY: BIRADS Category 1: Negative. A letter regarding these results will be sent to the patient by the facility within 30 days. Approximately 10% of breast cancers are not detected by mammography. A normal mammogram should not delay biopsy of a clinically suspicious abnormality. [id number] Electronically Signed: Matias Alvares MD at 13:01 EDT , Service support ,
== END ==
PROVIDERS: PCP Family Medicine; Referring Provider Obstetrics & Gynecology; Visit Provider Obstetrics & Gynecology
DX: Z12.31 Encounter for screening mammogram for malignant neoplasm of breast (principal)
CPT/HCPCS: 77063; 77067

== ENCOUNTER → 2020-12-27 09:28 | Outpatient (CLI) | payer MEDICARE, OTHER, SELFPAY ==
[2020-12-27 12:32] LABS: Anion Gap 9 (5-15); BUN 12 mg/dL (7-18); BUN/Creat Ratio 15.2 RATIO (10-20); Calcium,Total 8.6 mg/dL (8.5-10.1); Chloride 102 mmol/L (98-107); Creatinine, Serum 0.79 mg/dL (0.55-1.02); EST Glomerular Filtration Rate 76 mL/min (>60); Est Glom Filt Rate - Afr Amer 92 mL/min (>60); Glucose 146 mg/dL (74-106); Sodium Level 137 mmol/L (136-145)
== END ==
PROVIDERS: PCP Family Medicine; Referring Provider Family Medicine; Visit Provider Family Medicine
DX: I10 Essential (primary) hypertension (principal)
CPT/HCPCS: 36415; 80048

== ENCOUNTER 2021-03-15 10:39 | Outpatient (CLI) | payer MEDICARE, OTHER, SELFPAY ==
[2021-03-15 12:24] LABS: AST(SGOT) 29 U/L (15-37); Alanine Aminotransfer ALT/SGPT 36 U/L (13-56); Albumin, Serum 3.5 g/dL (3.2-5.0); Alkaline Phosphatase 83 U/L (45-117); Bilirubin, Direct 0.18 mg/dL (0.00-0.30); Cholesterol 194 mg/dL (200); Globulin 3.2 g/dL (2.2-4.2); High Density Lipoprotein 105 mg/dL; Protein, Total 6.7 g/dL (6.4-8.2); Triglycerides 101 mg/dL; Very Low Density Lipoprotein 20 mg/dL (5-40)
== END 2021-03-15 23:59 | disposition short-term general hospital (02) ==
LOC: LAB 10:41
PROVIDERS: PCP Family Medicine; Referring Provider Internal Medicine Cardiovascular Disease; Visit Provider Internal Medicine Cardiovascular Disease
DX: E78.00 Pure hypercholesterolemia, unspecified (principal); E78.5 Hyperlipidemia, unspecified
CPT/HCPCS: 36415; 80061; 80076

== ENCOUNTER 2021-03-31 13:53 | Outpatient (CLI) | payer MEDICARE, OTHER, SELFPAY ==
[2020-09-15 09:50] VITALS: BMI 24.9
[2021-03-31 13:57] VITALS: BP 175/91; PULSE 77; RESP 16; TEMP 35.7; O2SAT 99
[2021-03-31] MEDS: DENOSUMAB 60 MG/ML SC (14:00)
== END 2021-03-31 23:59 | disposition short-term general hospital (02) ==
LOC: MEDOUTP 13:53
PROVIDERS: PCP Family Medicine; Referring Provider Internal Medicine Endocrinology, Diabetes & Metabolism; Visit Provider Internal Medicine Endocrinology, Diabetes & Metabolism
DX: M81.0 Age-related osteoporosis without current pathological fracture (principal)
CPT/HCPCS: 96372; J0897

== ENCOUNTER 2021-05-15 12:11 | Outpatient (CLI) | payer MEDICARE, OTHER, SELFPAY ==
[2021-05-15 15:55] LABS: Hematocrit 38.5 % (37-47); Hemoglobin 12.5 g/dL (12.0-15.0); Mean Corp Hgb Conc 32.5 g/dL (32-36); Mean Corpuscular Hgb 30.8 pg (27.0-32.0); Mean Corpuscular Volume 94.8 fL (81-99); Mean Platelet Vol. 11.8 fl (6.2-12.0); Platelet Count 233 K/mm3 (150-450); RBC Distribution Width CV 12.5 % (11.6-14.6); RBC Distribution Width SD 43.3 fl (35.1-43.9); Red Blood Count 4.06 M/mm3 (4.2-5.4); White Blood Count 7.8 K/mm3 (4.4-11.0)
[2021-05-15 16:04] LABS: Erythrocyte Sedimentation Rate 11 mm/hr (0-30)
[2021-05-15 16:21] LABS: Anion Gap 6 (5-15); BUN 15 mg/dL (7-18); BUN/Creat Ratio 21.4 RATIO (10-20); Calcium,Total 8.9 mg/dL (8.5-10.1); Chloride 100 mmol/L (98-107); EST Glomerular Filtration Rate 87 mL/min (>60); Est Glom Filt Rate - Afr Amer 105 mL/min (>60); Glucose 93 mg/dL (74-106); Magnesium 2.2 mg/dL (1.6-2.6); Potassium 4.1 mmol/L (3.5-5.1); Sodium Level 133 mmol/L (136-145)
[2021-05-17 16:12] LABS: ANTINUCLEAR ANTIBODIES DIRECT Negative (Negative)
[2021-05-30 18:07] LABS: Aldosterone, Serum 1.9 ng/dL (0.0-30.0)
[2021-05-30 21:32] LABS: Renin, Plasma 0.302 ng/mL/hr (0.167-5.380)
== END 2021-05-15 23:59 | disposition home or self-care (01) ==
LOC: MFPLAB 12:12
PROVIDERS: PCP Family Medicine; Visit Provider Family Medicine
DX: I10 Essential (primary) hypertension (principal); E55.9 Vitamin D deficiency, unspecified
CPT/HCPCS: 36415; 80048; 82088; 82306; 82533; 83735; 84244; 85027; 85652; 86038

== ENCOUNTER 2021-06-06 08:38 | Outpatient (CLI) | payer MEDICARE, OTHER, SELFPAY ==
--- NOTE | 2021-06-06 08:44 | RDU_ITS ---
Reason For Study: HTN Right Renal Artery Left Renal Artery Right renal artery ostium 66.6/17.1 Left renal artery ostium 62.1/15.1 RSV/EDV. PSV/EDV. Right renal artery proximal Left renal artery proximal PSV/EDV 119.8/41.3 PSV/EDV. 96.5/26.5 . Right renal artery mid 113.6/30.6 Left renal artery mid 118/24.8 PSV/EDV. PSV/EDV . Right renal artery distal Left renal artery distal 111.1/27.7 107.6/31.2 PSV/EDV. PSV/EDV. Right RAR 2.28. Left RAR 2.23. Right Renal Parenchyma Left Renal Parenchyma Upper Pole Medula 33.4/10.6 Left upper pole medulla 35.5/11.8 PSV/EDV. PSV/EDV . Right upper pole medulla EDR 0.32 . Left upper pole medulla EDR 0.33 . Right upper pole medulla R.I. Left upper pole medulla R.I. 0.67 . 0.68 . UP Cortex 27.3/9 PSV/EDV. Upper Alejandro Cortx 20.6/6.5 PSV/EDV. Left upper pole cortex EDR 0.33 . Right upper pole cortex EDR 0.32 . Left upper pole cortex R.I. 0.67 . Right upper pole cortex R.I. 0.68 . Left lower Pole medulla 31.9/10 Right lower Pole medulla 29.2/9 PSV/EDV . PSV/EDV . Left lower pole medulla EDR 0.31 . Right lower pole medulla EDR 0.31 . Left lower pole medulla R.I. 0.69 . Right lower pole medulla R.I. Lower Pole Cortx 26.4/9 PSV/EDV. 0.69 . Left lower pole cortex EDR 0.34 . Lower Pole Cortex 24.3/7.7 PSV/EDV. Left lower pole cortex R.I. 0.66 . Right lower pole cortex EDR 0.32 . Left Renal Hilar Right lower pole cortex R.I. 0.68 . LT Hilar avg 57.4/17.3 PSV/EDV . Right Renal Hilar Left hilar acceleration time 70 Right Hilar avg 51.7/17.9 PSV/EDV. m/sec. Right hilar acceleration time 40 Left Renal Dimensions m/sec. Left kidney size 9.36 cm . Right Renal Dimensions Left cortical dimension 1.40 cm . Right kidney size 8.86 cm . Right cortical dimension 1.31 cm . Aorta Proximal abdominal aorta 1.36 x 1.38 cm . Proximal abdominal aorta peak systolic velocity is 52.5 cm/sec . Distal abdominal aorta 1.34 x 1.33 cm . Distal abdominal aorta peak systolic velocity is 76.5 cm/sec . VL/Renal Artery Duplex Ultrasound Interpretation Summary Maximal aortic diameter proximally at 1.36 x 1.38 cm in diameter with normal ao rtic flow velocity. Less than 60% stenosis right renal artery Borderline right renal length at 8.86 cm Less than 60% stenosis left renal artery. Maintained left renal length 9.36 cm Ordering Physician: Rafael Donahue Referring Physician: Etienne Donahue MD Performed By: Thao Rucker RVShante
== END 2021-06-06 23:59 | disposition home or self-care (01) ==
LOC: CVS 08:39
PROVIDERS: PCP Family Medicine; Visit Provider Family Medicine
DX: I10 Essential (primary) hypertension (principal)
CPT/HCPCS: 93975

== ENCOUNTER 2021-06-19 16:56 | Outpatient (CLI) | payer MEDICARE, OTHER, SELFPAY ==
--- NOTE | 2021-06-19 17:04 | RAD_ITS ---
STUDY: X-RAY - ACUTE ABDOMINAL SERIES REASON FOR EXAM: Female, 71 years old. DIARRHEA TECHNIQUE: Single view of the chest. Supine and upright view(s) of the abdomen were obtained. 5 images total. COMPARISON: Abdominal x-rays 02/24/2020, Chest x-ray 05/24/2013. FINDINGS: The bowel gas pattern is normal. There is no bowel obstruction or free intraperitoneal air. Sutures noted in the right mid/lower abdomen. No abnormal mass or calcification is seen. Surgical hardware in the lumbar spine. The lungs are clear. RAD/Acute Abdomen Inc Chest IMPRESSION: Unremarkable abdominal series. Electronically Signed: Bita Painter MD at 5:37 EDT ,
[2021-06-19 17:38] LABS: Absolute Lymphocyte Count 1.58 X10^3/uL (0.83-4.51); Absolute Neutrophil Count 4.1 X10^3/uL (2.0-7.7); Basophil# 0.02 X10^3/uL; Basophil% 0.3 % (0-1); Eosinophil# 0.03 X10^3/uL; Eosinophils% 0.5 % (0-5); Hemoglobin 12.6 g/dL (12.0-15.0); Lymphocyte # 1.58 X10^3/ul (0.83-4.51); Lymphocyte % 25.2 % (19-41); Mean Corp Hgb Conc 33.2 g/dL (32-36); Mean Corpuscular Hgb 30.4 pg (27.0-32.0); Mean Corpuscular Volume 91.8 fL (81-99); Mean Platelet Vol. 10.5 fl (6.2-12.0); Monocyte# 0.57 X10^3/uL; Monocyte% 9.1 % (0-10); NRBC Flagged by Analyzer 0 % (0-5); Neutrophil # 4.05 X10^3/uL (2.7-7.7); Neutrophil % 64.4 % (47-70); Platelet Count 254 K/mm3 (150-450); RBC Distribution Width CV 12.7 % (11.6-14.6); RBC Distribution Width SD 42.3 fl (35.1-43.9); Red Blood Count 4.14 M/mm3 (4.2-5.4); White Blood Count 6.3 K/mm3 (4.4-11.0)
[2021-06-19 18:07] LABS: Erythrocyte Sedimentation Rate 9 mm/hr (0-30)
[2021-06-19 18:36] LABS: ALB/GLOB Ratio 1.1 RATIO (0.9-2.4); AST(SGOT) 24 U/L (15-37); Alanine Aminotransfer ALT/SGPT 28 U/L (13-56); Albumin, Serum 3.6 g/dL (3.2-5.0); Alkaline Phosphatase 72 U/L (45-117); Anion Gap 6 (5-15); BUN 18 mg/dL (7-18); BUN/Creat Ratio 24.6 RATIO (10-20); Chloride 101 mmol/L (98-107); Creatinine, Serum 0.73 mg/dL (0.55-1.02); EST Glomerular Filtration Rate 83 mL/min (>60); Est Glom Filt Rate - Afr Amer 101 mL/min (>60); Globulin 3.2 g/dL (2.2-4.2); Glucose 76 mg/dL (74-106); Potassium 3.7 mmol/L (3.5-5.1); Protein, Total 6.8 g/dL (6.4-8.2); Sodium Level 135 mmol/L (136-145); Thyroid Stim Hormone (TSH) 1.51 uIU/mL (0.358-3.74)
[2021-06-21 08:30] LABS: H. Pylori Antibody (IgG) 0.93 (0.00-0.79)
== END 2021-06-19 23:59 | disposition home or self-care (01) ==
PROVIDERS: PCP Family Medicine; Referring Provider Family Medicine; Visit Provider Family Medicine
DX: R19.7 Diarrhea, unspecified (principal); E27.40 Unspecified adrenocortical insufficiency; K21.9 Gastro-esophageal reflux disease without esophagitis; R53.83 Other fatigue
CPT/HCPCS: 36415; 74022; 80053; 82533; 84443; 85025; 85652; 86677

== ENCOUNTER 2021-06-22 14:23 | Outpatient (CLI) | payer MEDICARE, OTHER, SELFPAY ==
[2021-06-22 17:52] LABS: Uric Acid 3.1 mg/dL (2.6-6.0)
== END 2021-06-22 23:59 | disposition home or self-care (01) ==
LOC: MFPLAB 14:24
PROVIDERS: PCP Family Medicine; Visit Provider Family Medicine
DX: M10.9 Gout, unspecified (principal)
CPT/HCPCS: 36415; 84550

== ENCOUNTER → 2021-07-11 | Outpatient (CLI) | payer MEDICARE, OTHER, SELFPAY ==
[2021-07-13 10:45] LABS: H. PYLORI STOOL AG Negative (Negative)
== END | disposition home or self-care (01) ==
LOC: LABSPEC 09:31
PROVIDERS: PCP Family Medicine; Referring Provider Family Medicine; Visit Provider Family Medicine
DX: Z00.00 Encounter for general adult medical examination without abnormal findings (principal)

== ENCOUNTER → 2021-07-24 | Outpatient (CLI) | payer MEDICARE, OTHER, SELFPAY ==
--- NOTE | 2021-07-24 09:01 | RAD_ITS ---
INDICATION: GERD EXAMINATION/TECHNIQUE: Barium oral contrast gas bubbles and barium pill were administered to the patient. Total Fluoroscopic Time: 0.52 minutes/seconds AND number of Fluoroscopic Images: 12 OR Radiation dosage index: COMPARISON: None. FINDINGS: No masses or strictures are identified. There is no hiatal hernia. The mucosal pattern is unremarkable. There is normal motility. Mild reflux. RAD/Esophagus Single Contrast IMPRESSION: Mild reflux. Otherwise, unremarkable. Electronically Signed: Eric Garcia, at 12:53 EDT ,
== END | disposition home or self-care (01) ==
LOC: RAD 08:59
PROVIDERS: PCP Family Medicine; Referring Provider Family Medicine; Visit Provider Family Medicine
DX: K21.9 Gastro-esophageal reflux disease without esophagitis (principal)
CPT/HCPCS: 74220

== ENCOUNTER → 2021-09-12 | Outpatient (CLI) | payer MEDICARE, OTHER, SELFPAY ==
[2021-09-12 12:02] LABS: AST(SGOT) 27 U/L (15-37); Alanine Aminotransfer ALT/SGPT 26 U/L (13-56); Albumin, Serum 3.6 g/dL (3.2-5.0); Alkaline Phosphatase 82 U/L (45-117); Bilirubin, Direct 0.18 mg/dL (0.00-0.30); Cholesterol 224 mg/dL (200); Globulin 3.5 g/dL (2.2-4.2); High Density Lipoprotein 112 mg/dL; Protein, Total 7.1 g/dL (6.4-8.2); Triglycerides 102 mg/dL; Very Low Density Lipoprotein 20 mg/dL (5-40)
[2021-09-12 12:06] LABS: Anion Gap 4 (5-15); BUN 16 mg/dL (7-18); BUN/Creat Ratio 23.1 RATIO (10-20); Calcium,Total 9.1 mg/dL (8.5-10.1); Chloride 101 mmol/L (98-107); Creatinine, Serum 0.69 mg/dL (0.55-1.02); EST Glomerular Filtration Rate 89 mL/min (>60); Est Glom Filt Rate - Afr Amer 107 mL/min (>60); Glucose 102 mg/dL (74-106); Potassium 4.3 mmol/L (3.5-5.1); Sodium Level 136 mmol/L (136-145)
== END | disposition home or self-care (01) ==
LOC: LAB 10:47
PROVIDERS: PCP Family Medicine; Visit Provider Internal Medicine Cardiovascular Disease
DX: E87.1 Hypo-osmolality and hyponatremia (principal); E78.00 Pure hypercholesterolemia, unspecified
CPT/HCPCS: 36415; 80048; 80061; 80076

== ENCOUNTER → 2021-09-29 | Outpatient (CLI) | payer MEDICARE, OTHER, SELFPAY ==
[2021-09-29 13:58] VITALS: BP 155/79; PULSE 71; RESP 16; TEMP 35.9; O2SAT 98; BMI 24.2
[2021-09-29] MEDS: DENOSUMAB 60 MG/ML SC (14:01)
== END | disposition home or self-care (01) ==
LOC: MEDOUTP 13:52
PROVIDERS: PCP Family Medicine; Referring Provider Internal Medicine Endocrinology, Diabetes & Metabolism; Visit Provider Internal Medicine Endocrinology, Diabetes & Metabolism
DX: M85.80 Other specified disorders of bone density and structure, unspecified site (principal)
CPT/HCPCS: 96372; J0897

== ENCOUNTER → 2021-11-03 | Outpatient (CLI) | payer MEDICARE, OTHER, SELFPAY ==
[2021-11-03 17:30] LABS: Absolute Lymphocyte Count 1.38 X10^3/uL (0.83-4.51); Absolute Neutrophil Count 4.6 X10^3/uL (2.0-7.7); Basophil# 0.01 X10^3/uL; Basophil% 0.1 % (0-1); Eosinophil# 0.03 X10^3/uL; Eosinophils% 0.4 % (0-5); Hematocrit 38.5 % (37-47); Hemoglobin 12.8 g/dL (12.0-15.0); Lymphocyte # 1.38 X10^3/ul (0.83-4.51); Lymphocyte % 20.4 % (19-41); Mean Corp Hgb Conc 33.2 g/dL (32-36); Mean Corpuscular Hgb 30.2 pg (27.0-32.0); Mean Corpuscular Volume 90.8 fL (81-99); Mean Platelet Vol. 11.4 fl (6.2-12.0); Monocyte# 0.72 X10^3/uL; Monocyte% 10.6 % (0-10); NRBC Flagged by Analyzer 0 % (0-5); Neutrophil # 4.61 X10^3/uL (2.7-7.7); Neutrophil % 68.1 % (47-70); Platelet Count 226 K/mm3 (150-450); RBC Distribution Width CV 13.2 % (11.6-14.6); RBC Distribution Width SD 44.5 fl (35.1-43.9); Red Blood Count 4.24 M/mm3 (4.2-5.4); White Blood Count 6.8 K/mm3 (4.4-11.0)
[2021-11-03 17:42] LABS: Erythrocyte Sedimentation Rate 15 mm/hr (0-30)
[2021-11-03 17:53] LABS: AST(SGOT) 22 U/L (15-37); Alanine Aminotransfer ALT/SGPT 25 U/L (13-56); Albumin, Serum 3.3 g/dL (3.2-5.0); Alkaline Phosphatase 70 U/L (45-117); Anion Gap 10 (5-15); BUN 15 mg/dL (7-18); BUN/Creat Ratio 18.5 RATIO (10-20); Calcium,Total 8.3 mg/dL (8.5-10.1); Chloride 100 mmol/L (98-107); Creatinine, Serum 0.81 mg/dL (0.55-1.02); EST Glomerular Filtration Rate 74 mL/min (>60); Est Glom Filt Rate - Afr Amer 89 mL/min (>60); Ferritin 13 ng/mL (8-252); Globulin 3.4 g/dL (2.2-4.2); Glucose 88 mg/dL (74-106); Iron 90 ug/dL (50-170); Potassium 4.1 mmol/L (3.5-5.1); Protein, Total 6.7 g/dL (6.4-8.2); Sodium Level 134 mmol/L (136-145); Thyroid Stim Hormone (TSH) 0.88 uIU/mL (0.358-3.74)
== END | disposition home or self-care (01) ==
LOC: MFPLAB 15:51
PROVIDERS: PCP Family Medicine; Visit Provider Family Medicine
DX: R53.83 Other fatigue (principal); D64.9 Anemia, unspecified; E55.9 Vitamin D deficiency, unspecified
CPT/HCPCS: 36415; 80053; 82306; 82728; 83540; 84443; 85025; 85652

== ENCOUNTER → 2022-01-02 | Outpatient (CLI) | payer MEDICARE, OTHER, SELFPAY ==
--- NOTE | 2022-01-02 13:44 | BI_ITS ---
MAMMOGRAPHY - BILATERAL SCREENING REASON FOR EXAM: Female, 71 years old. Routine annual screening examination. PERTINENT HISTORY: Non-contributory. TECHNIQUE: Digital bilateral breast ewa (3D mammographic acquisition) in the CC and MLO projections. 2-D mediolateral oblique (MLO) and craniocaudad (CC) views of both breasts were obtained. CAD: Full Field Digital Mammography with Computer Added Detection was performed. COMPARISON: Comparison is made with prior study 12/19/2020 and 12/14/2019. FINDINGS: Breast Composition: The breasts are heterogeneously dense, which may obscure small masses. There are no dominant masses or suspicious calcifications. No other significant abnormalities are identified. There has been no significant change since the prior study. BI/SCRN MAMM (CAD)W/EWA BILAT IMPRESSION: Stable bilateral screening mammogram. Yearly follow-up mammogram recommended. (A) ASSESSMENT CATEGORY: BIRADS Category 1: Negative. A letter regarding these results will be sent to the patient by the facility within 30 days. Approximately 10% of breast cancers are not detected by mammography. A normal mammogram should not delay biopsy of a clinically suspicious abnormality. [id number] Electronically Signed: Matias Alvares MD at 15:07 EDT ,
== END | disposition home or self-care (01) ==
LOC: OPBI 13:43
PROVIDERS: PCP Family Medicine; Visit Provider Obstetrics & Gynecology
DX: Z12.31 Encounter for screening mammogram for malignant neoplasm of breast (principal)
CPT/HCPCS: 77063; 77067

== ENCOUNTER → 2022-01-10 | Outpatient (CLI) | payer MEDICARE, OTHER, SELFPAY ==
[2022-01-10 11:36] LABS: AST(SGOT) 27 U/L (15-37); Alanine Aminotransfer ALT/SGPT 25 U/L (13-56); Albumin, Serum 3.8 g/dL (3.2-5.0); Alkaline Phosphatase 75 U/L (45-117); Bilirubin, Direct 0.16 mg/dL (0.00-0.30); Cholesterol 232 mg/dL (200); Globulin 3.5 g/dL (2.2-4.2); High Density Lipoprotein 131 mg/dL; Protein, Total 7.3 g/dL (6.4-8.2); Triglycerides 93 mg/dL; Very Low Density Lipoprotein 19 mg/dL (5-40)
== END | disposition home or self-care (01) ==
LOC: LAB 10:39
PROVIDERS: PCP Family Medicine; Referring Provider Internal Medicine Cardiovascular Disease; Visit Provider Internal Medicine Cardiovascular Disease
DX: E78.00 Pure hypercholesterolemia, unspecified (principal)
CPT/HCPCS: 36415; 80061; 80076

== ENCOUNTER → 2022-03-30 | Outpatient (CLI) | payer MEDICARE, OTHER, SELFPAY ==
[2022-03-30 13:33] VITALS: BP 179/75; PULSE 65; RESP 16; TEMP 36.1; O2SAT 99
[2022-03-30] MEDS: DENOSUMAB 60 MG/ML SC (13:35)
== END | disposition home or self-care (01) ==
LOC: MEDOUTP 13:26
PROVIDERS: PCP Family Medicine; Referring Provider Internal Medicine Endocrinology, Diabetes & Metabolism; Visit Provider Internal Medicine Endocrinology, Diabetes & Metabolism
DX: M85.80 Other specified disorders of bone density and structure, unspecified site (principal)
CPT/HCPCS: 96372; J0897

== ENCOUNTER → 2022-07-04 | Outpatient (CLI) | payer MEDICARE, OTHER, SELFPAY ==
[2022-07-04 11:52] LABS: AST(SGOT) 20 U/L (15-37); Alanine Aminotransfer ALT/SGPT 28 U/L (13-56); Albumin, Serum 3.5 g/dL (3.2-5.0); Alkaline Phosphatase 69 U/L (45-117); Bilirubin, Direct 0.16 mg/dL (0.00-0.30); Cholesterol 234 mg/dL (200); Globulin 3.5 g/dL (2.2-4.2); High Density Lipoprotein 147 mg/dL; Triglycerides 78 mg/dL; Very Low Density Lipoprotein 16 mg/dL (5-40)
[2022-07-06 11:43] LABS: ALB/GLOB Ratio 1.2 RATIO (0.9-2.4); AST(SGOT) 21 U/L (15-37); Alanine Aminotransfer ALT/SGPT 27 U/L (13-56); Albumin, Serum 3.6 g/dL (3.2-5.0); Alkaline Phosphatase 68 U/L (45-117); Anion Gap 9 (5-15); BUN 16 mg/dL (7-18); BUN/Creat Ratio 21.5 RATIO (10-20); Chloride 102 mmol/L (98-107); Creatinine, Serum 0.74 mg/dL (0.55-1.02); EST Glomerular Filtration Rate 81 mL/min (>60); Est Glom Filt Rate - Afr Amer 98 mL/min (>60); Globulin 3.1 g/dL (2.2-4.2); Glucose 94 mg/dL (74-106); Protein, Total 6.7 g/dL (6.4-8.2); Sodium Level 137 mmol/L (136-145)
== END | disposition home or self-care (01) ==
PROVIDERS: Internal Medicine Endocrinology, Diabetes & Metabolism; PCP Family Medicine; Referring Provider Internal Medicine Cardiovascular Disease; Visit Provider Internal Medicine Cardiovascular Disease
DX: M81.0 Age-related osteoporosis without current pathological fracture (principal); E55.9 Vitamin D deficiency, unspecified; E78.00 Pure hypercholesterolemia, unspecified
CPT/HCPCS: 36415; 80053; 80061; 80076

== ENCOUNTER → 2022-08-23 | Outpatient (CLI) | payer MEDICARE, OTHER, SELFPAY ==
[2022-08-23 08:48] LABS: Vitamin D,25 Hydroxy 36.1 ng/mL
--- NOTE | 2022-08-23 13:00 | STRESSREP_ITS ---
Stress Test Report Pharmacologic myocardial perfusion stress test. 72-year-old lady with a history of coronary artery disease Resting EKG demonstrates sinus rhythm with a rate of 65 bpm. Resting blood pressure is 230/114 mmHg. repeat was 190/98. 0.4 mg of regadenoson was infused per usual protocol followed by rapid intravenous saline flush injection. Brandy nuous EKG monitoring was performed. The maximum heart rate was 96 bpm which was 65% of max impacted heart rate the maximum workload was 1 metabolic equivalent. At rest there were no ST or T wave changes noted to suggest ischemia and at peak infusion nonspecific ST changes were noted which did not meet the criteria for ischemia. No clinical angina is noted. The final blood pressure was 202/100 mmHg. Myocardial perfusion protocol. 10.3 mCi of technetium 99m sestamibi was injected at rest. 0.4 mg of regadenoson was infused per usual protocol. At peak infusion 33.6 mCi of technetium 99m sestamibi was injected stress images were obtained stress and rest images were reconstructed and compared in the short axis vertical long and horizontal long axis. Gated images were also obtained. Perfusion SPECT analysis: Review of the stress images demonstrate normal uptake of tracer noted in all areas of the myocardium. The resting images similar demonstrated normal uptake of tracer noted in all areas of the myocardium. No areas of reversibility are noted to suggest ischemia and no previous infarct is noted. Gated SPECT analysis: The gated ejection fraction is 76%. Conclusion: Normal pharmacologic myocardial perfusion stress test. Preserved ejection fraction. Resting hypertension.
== END | disposition home or self-care (01) ==
PROVIDERS: Internal Medicine Endocrinology, Diabetes & Metabolism; PCP Family Medicine; Referring Provider Internal Medicine Cardiovascular Disease; Visit Provider Internal Medicine Cardiovascular Disease
DX: E55.9 Vitamin D deficiency, unspecified (principal); M81.0 Age-related osteoporosis without current pathological fracture; R03.0 Elevated blood-pressure reading, without diagnosis of hypertension; I25.10 Atherosclerotic heart disease of native coronary artery without angina pectoris
CPT/HCPCS: 36415; 78452; 82306; 93017; 93788; A9500; A4216; J2785

== ENCOUNTER 2022-10-05 12:52 | Outpatient (CLI) | payer MEDICARE, OTHER, SELFPAY ==
[2022-10-05 13:04] VITALS: BP 153/73; PULSE 71; RESP 16; TEMP 36.6; O2SAT 98
[2022-10-05] MEDS: DENOSUMAB 60 MG/ML SC (13:08)
== END 2022-10-05 12:53 | disposition home or self-care (01) ==
LOC: MEDOUTP 12:52
PROVIDERS: PCP Family Medicine; Referring Provider Internal Medicine Endocrinology, Diabetes & Metabolism; Visit Provider Internal Medicine Endocrinology, Diabetes & Metabolism
DX: M85.80 Other specified disorders of bone density and structure, unspecified site (principal)
CPT/HCPCS: 96372; J0897

== ENCOUNTER → 2023-01-02 | Outpatient (CLI) | payer MEDICARE, OTHER, SELFPAY ==
[2023-01-02 11:54] LABS: AST(SGOT) 22 U/L (15-37); Alanine Aminotransfer ALT/SGPT 26 U/L (13-56); Albumin, Serum 3.6 g/dL (3.2-5.0); Alkaline Phosphatase 74 U/L (45-117); Bilirubin, Direct 0.17 mg/dL (0.00-0.30); Cholesterol 228 mg/dL (200); Globulin 3.6 g/dL (2.2-4.2); High Density Lipoprotein 137 mg/dL; Protein, Total 7.2 g/dL (6.4-8.2); Triglycerides 95 mg/dL; Very Low Density Lipoprotein 19 mg/dL (5-40)
== END | disposition home or self-care (01) ==
PROVIDERS: Nurse Practitioner Gerontology; PCP Family Medicine; Referring Provider Internal Medicine Cardiovascular Disease; Visit Provider Internal Medicine Cardiovascular Disease
DX: E78.5 Hyperlipidemia, unspecified (principal)
CPT/HCPCS: 36415; 80061; 80076

== ENCOUNTER → 2023-01-07 | Outpatient (CLI) | payer MEDICARE, OTHER, SELFPAY ==
--- NOTE | 2023-01-07 09:36 | BI_ITS ---
MAMMOGRAPHY - BILATERAL SCREENING REASON FOR EXAM: Female, 72 years old. Routine annual screening examination. PERTINENT HISTORY: Non-contributory. TECHNIQUE: Digital bilateral breast ewa (3D mammographic acquisition) in the CC and MLO projections. 2-D mediolateral oblique (MLO) and craniocaudad (CC) views of both breasts were obtained. CAD: Full Field Digital Mammography with Computer Added Detection was performed. COMPARISON: Comparison is made with prior study dated January 02, 2022 and December 19, 2020 FINDINGS: Breast Composition: The breasts are heterogeneously dense, which may obscure small masses. There are no dominant masses or suspicious calcifications. No other significant abnormalities are identified. There has been no significant change since the prior study. BI/SCRN MAMM (CAD)W/EWA BILAT IMPRESSION: Stable bilateral screening mammogram. Yearly follow-up mammogram recommended. (A) ASSESSMENT CATEGORY: BIRADS Category 1: Negative. A letter regarding these results will be sent to the patient by the facility within 30 days. Approximately 10% of breast cancers are not detected by mammography. A normal mammogram should not delay biopsy of a clinically suspicious abnormality. [id number] Electronically Signed: Matias Alvares MD at 10:56 EST ,
== END | disposition home or self-care (01) ==
LOC: OPBI 09:35
PROVIDERS: PCP Family Medicine; Referring Provider Obstetrics & Gynecology; Visit Provider Obstetrics & Gynecology
DX: Z12.31 Encounter for screening mammogram for malignant neoplasm of breast (principal)
CPT/HCPCS: 77063; 77067

== ENCOUNTER → 2023-02-11 | Outpatient (CLI) | payer MEDICARE, OTHER, SELFPAY ==
[2023-02-11 13:10] LABS: Hemoglobin A1c 5.3 % (3.8-5.6)
== END | disposition home or self-care (01) ==
LOC: MFPLAB 10:31
PROVIDERS: PCP Family Medicine; Visit Provider Family Medicine
DX: I25.10 Atherosclerotic heart disease of native coronary artery without angina pectoris (principal); E78.00 Pure hypercholesterolemia, unspecified; Z79.899 Other long term (current) drug therapy
CPT/HCPCS: 36415; 83036

== ENCOUNTER → 2023-05-13 | Outpatient (CLI) | payer MEDICARE, OTHER, SELFPAY ==
--- NOTE | 2023-05-13 16:26 | RAD_ITS ---
STUDY: X-RAY - LEFT CLAVICLE REASON FOR EXAM: Female, 73 years old. Left lateral superior clavicular mass. TECHNIQUE: 2 views of the left clavicle. COMPARISON: None. FINDINGS: Normal clavicle. There is no demonstrated acute fracture. There is mild acromioclavicular arthrosis. Normal visualized sternoclavicular articulation. Normal visualized pulmonary apex. There is atherosclerotic calcification of the aortic arch. RAD/Clavicle IMPRESSION: Mild acromioclavicular arthrosis. No demonstrated clavicle fracture. Electronically Signed: Zachary Topete MD at 12:01 EDT ,
--- OUTSIDE RECORDS SUMMARY | 2023-05-13 21:18 | XMS RPT_ITS | CCD ---
Author Name Unknown Address [address] [place] [address] Organization [facility] Care Team Providers [facility] [place] [facility] Name Role Phone Maddy Tong MD Unavailable [phone] Kacey Riddle Unavailable Shonna ROSEN, Johana Franco Unavailable Unavailable Derek, Ivan Y Unavailable Unavailable Derek, Harumi Y Unavailable Unavailable ISI Hogan, Malaika Scott Unavailable [phone] Kacey Riddle Unavailable Ivan Reed Y Unavailable Unavailable [facility] DOCTOR OF PODIATRY, Golden Turner Unavailable Maddy Tong MD Unavailable [phone] Jaren Donahue MD Primary Care Provider Jaren Donahue MD Primary Care Provider AURY DON Referring Unavailab JAREN Chang Primary Care AURY Solis Attending Unavailab AURY Schulz Referring Unavailab JAREN Chang Primary Care UnavailJaren Elise MD Primary Care Provider Allergies Allergy Classification Reported Allergen(s) Allergy Type Date of Onset Reaction(s) Facility (12 sources) azithromycin drug allergy 1 GI upset [facility] Work Phone: [phone] (8 sources) ciprofloxacin drug allergy 7 nausea [facility] Work Phone: [phone] (12 sources) dilTIAZem drug allergy 3 Lower extremity edema [facility] Work Phone: [phone] (12 sources) erythromycin drug allergy 1 Nausea [facility] Work Phone: [phone] (12 sources) Hmg-Coa Reductase Inhibitors (Statins) drug allergy 1 Intolerance, myalgias [facility] Work Phone: [phone] (8 sources) levoFLOXacin drug allergy 7 tendonitis [facility] Work Phone: [phone] (12 sources) lisinopril drug allergy 1 cough [facility] Work Phone: [phone] (8 sources) AVALOX drug allergy 7 nausea [facility] Work Phone: [phone] (5 sources) Azithromycin; Translations: [AZITHROMYCIN] Drug Allergy 8 GI Upset [facility] Work Phone: [phone] (5 sources) Erythromycin; Translations: [ERYTHROMYCIN] Drug Allergy 8 GI Upset [facility] Work Phone: (2 sources) Quinolones (Antibiotic); Translations: [QUINOLONES] Drug Intolerance 0 Other: See Comments [facility] (3 sources) Quinolones Drug Intolerance 0 Other: See Comments [facility] Medications Completed/Discontinued Medications Medication Drug Class(es) Dates Sig (Normalized) Sig (Original) acetaminophen 500 mg oral tablet (4 sources) Start: 01-14-2020 take 2 tablets by mouth every six hours acetaminophen (TYLENOL) 500 mg tablet Take 2 tablets by mouth every 6 hours. 0 01/14/2020 Active Problems Active Problems Problem Classification Problem Date Documented Date Episodic/Chronic Abdominal pain (1 source) Right lower quadrant pain; Translations: [Right lower quadrant pain] 03-07-2020 Episodic Anxiety disorders (8 sources) Generalized anxiety disorder; Translations: [Generalized anxiety disorder] Onset: 05-27-2009 05-27-2009 Chronic Cancer of colon (4 sources) Adenocarcinoma of large intestine; Translations: [Malignant neoplasm of colon, unspecified] Onset: 01-14-2020 01-14-2020 Chronic Complications of surgical procedures or medical care (1 source) Complication of procedure; Translations: [Complication of surgical and medical care, unspecified, initial encounter] 03-07-2020 Episodic Coronary atherosclerosis and other heart disease (20 sources) Coronary arteriosclerosis; Translations: [Coronary atherosclerosis] Onset: 05-24-2010 Resolved: 07-14-2015 07-14-2015 Chronic Disorders of lipid metabolism (16 sources) Hyperlipidemia; Translations: [Hyperlipidemia, unspecified] Onset: 05-24-2010 05-24-2010 Chronic Esophageal disorders (4 sources) Gastroesophageal reflux disease; Translations: [Gastro-esophageal reflux disease without esophagitis] Onset: 01-08-2020 01-08-2020 Chronic Essential hypertension (12 sources) Hypertensive disorder; Translations: [Essential (primary) hypertension] Onset: 05-24-2010 05-24-2010 Chronic Hypertension with complications and secondary hypertension (4 sources) Benign hypertensive heart disease without congestive heart failure; Translations: [Hypertensive heart disease without heart failure] 01-19-2009 Chronic Menopausal disorders (5 sources) Menopause present; Translations: [Menopausal and female climacteric states] Onset: 11-19-2016 11-19-2016 Chronic Other aftercare (1 source) History of malignant neoplasm of colon; Translations: [Encounter for follow-up examination after completed treatment for malignant neoplasm] Episodic Other bone disease and musculoskeletal deformities (4 sources) Disorder of skeletal system; Translations: [Disorder of bone, unspecified] 01-19-2009 Episodic Unclassified (11 sources) Placement of stent in coronary artery ; Translations: [Presence of coronary angioplasty implant and graft] Onset: 05-24-2010 07-14-2015 Unclassified (5 sources) Screening mammography ; Translations: [Encounter for screening mammogram for malignant neoplasm of breast] Onset: 09-21-2016 09-21-2016 Unclassified (5 sources) Gynecologic examination ; Translations: [Encounter for gynecological examination (general) (routine) without abnormal findings] Onset: 11-19-2016 11-19-2016 Unclassified (4 sources) Long-term drug therapy; Translations: [Other senior living (current) drug therapy] Onset: 05-24-2010 05-24-2010 Past or Other Problems Problem Classification Problem Date Documented Da te Episodic/Chronic Cancer of colon (1 source) Personal history of other malignant neoplasm of large intestine; Translations: [Encounter for follow-up surveillance of colon cancer] Onset: 04-12-2021 Episodic Cardiac dysrhythmias (12 sources) Palpitations; Translations: [Palpitations] Onset: 05-24-2010 05-24-2010 Episodic Coronary atherosclerosis and other heart disease (12 sources) Coronary angioplasty status; Translations: [Coronary angioplasty status] Onset: 05-24-2010 05-24-2010 Episodic Nonspecific chest pain (20 sources) Chest pain, unspecified; Translations: [Precordial pain] Onset: 05-24-2010 Resolved: 07-14-2015 05-24-2010 Episodic Other aftercare (8 sources) Other senior living (current) drug therapy; Translations: [Other senior living (current) drug therapy] Onset: 05-24-2010 05-24-2010 Episodic Other aftercare (1 source) Encounter for follow-up examination after completed treatment for malignant neoplasm; Translations: [Encounter for follow-up surveillance of colon cancer] Onset: 04-12-2021 Episodic Other bone disease and musculoskeletal deformities (5 sources) Osteopenia; Translations: [Other specified disorders of bone density and structure, unspecified site] Onset: 11-19-2016 11-19-2016 Episodic Other gastrointestinal disorders (4 sources) Mass of colon; Translations: [Other specified diseases of intestine] Onset: 01-08-2020 01-14-2020 Episodic Other non-traumatic joint disorders (4 sources) Arthralgia of the ankle and/or foot; Translations: [Pain in unspecified ankle and joints of unspecified foot] Onset: 06-18-2013 06-18-2013 Episodic Other non-traumatic joint disorders (4 sources) Joint effusion of ankle AND/OR foot; Translations: [Effusion, unspecified ankle] Onset: 06-18-2013 06-18-2013 Episodic Other nutritional; endocrine; and metabolic disorders (12 sources) Body mass index (BMI) 25.0-25.9, adult; Translations: [Body mass index (BMI) 25.0-25.9, adult] Onset: 01-01-2014 01-01-2014 Episodic Residual codes; unclassified (2 sources) FH: Hypertension; Translations: [Family history of ischemic heart disease and other diseases of the circulatory system] Resolved: 07-14-2015 01-01-2014 Episodic Residual codes; unclassified (2 sources) FH: Raised blood lipids; Translations: [Family history of other specified conditions] Resolved: 07-14-2015 07-14-2015 Episodic Screening and history of mental health and substance abuse codes (4 sources) Ex-smoker; Translations: [Personal history of nicotine dependence] Onset: 01-08-2020 01-08-2020 Episodic Unclassified (20 sources) Edema; Translations: [FH: Raised blood lipids] Onset: 12-08-2012 Resolved: 07-14-2015 12-08-2012 Episodic Results Test Name Value Interpretation Reference Range Facil ity Vital Signs Date Time Vital Sign Value Performing Clinician Amanda hernandez 11-19-2016 11:07-0400 BMI (Body Mass Index) 25.23 kg/m2 Maddy Tong MD [facility] 11-19-2016 11:07-0400 Body Temperature 97.2 [degF] Maddy Tong MD [facility] 11-19-2016 11:07-0400 BP Diastolic 97 mm[Hg] Maddy Tong MD [facility] 11-19-2016 11:07-0400 BP Systolic 165 mm[Hg] Maddy Tong MD [facility] 11-19-2016 11:07-0400 Height 162.56 cm Maddy Tong MD [facility] 11-19-2016 11:07-0400 Pulse (Heart Rate) 77 /min Maddy Tong MD [facility] 11-19-2016 11:07-0400 Respiratory Rate 16 /min Maddy Tong MD [facility] 11-19-2016 11:07-0400 Weight 66.68 kg Maddy Tong MD [facility] 07-31-2016 13:09-0400 BMI (Body Mass Index) 24.89 kg/m2 [facility] Work Phone: 07-31-2016 13:09-0400 BP Diastolic 82 mm[Hg] Kacey Riddle [facility] Work Phone: 07-31-2016 13:09-0400 BP Systolic 142 mm[Hg] Kacey Smith [facility] Work Phone: 07-31-2016 13:090400 Height 162.56 cm [facility] Work Phone: 07-31-2016 13:09-0400 Pulse (Heart Rate) 74 /min [facility] Work Phone: 07-31-2016 13:09-0400 Pulse Oximetry 98 % [facility] Work Phone: 07-31-2016 13:09-0400 Respiratory Rate 18 /min [facility] Work Phone: 07-31-2016 13:09-0400 Weight 65.77 kg [facility] Work Phone: 01-17-2016 11:04-0500 BMI (Body Mass Index) 24.89 kg/m2 Malaika Hogan PA-C [facility] Work Phone: 01-17-2016 11:04-0500 BP Diastolic 90 mm[Hg] Malaika Hogan PA-C [facility] Work Phone: 01-17-2016 11:04-0500 BP Systolic 150 mm[Hg] Malaika Hogan PA-C [facility] Work Phone: 01-17-2016 11:04-0500 BSA (Body Surface Area) 1.71 m2 Malaika Hogan PA-C [facility] Work Phone: 01-17-2016 11:04-0500 Pulse (Heart Rate) 80 /min Malaika Hogan PA-C [facility] Work Phone: 01-17-2016 11:04-0500 Weight 65.77 kg Malaika Hogan PA-C [facility] Work Phone: 07-14-2015 13:03-0400 Height 162.56 cm Malaika Hogan PA-C [facility] Work Phone: 07-14-2015 13:03-0400 Respiratory Rate 18 /min Malaika Hogan PA-C [facility] Work Phone: 11-15-2011 14:57-0400 Heart rate 72 /min Maddy Tong MD [facility] 11-15-2011 14:57-0400 Heart rate 409 ms Maddy Tong MD [facility] Encounters Encounter Date Encounter Type Care Provider Facility Start: 01-10-2022 Telephone encounter Aury East MD Work Phone: Colorectal Surgery Procedures Date Procedure Procedure Detail Performing Clinician Start: 03-07-2020 Ct abdomen & pelvis w/contrast material Aury Don MD Work Phone: Start: 01-06-2020 Antibody screen Plan of Treatment Date Care Activity Detail Author Start: 01-13-2023 DIABETES SCREEN DIABETES SCREEN [facility] Start: 01-13-2023 Diabetes Screening Diabetes Screening [facility] Start: 11-02-2022 Covid-19 Vaccine () Covid-19 Vaccine () [facility] Start: 11-02-2022 Influenza vaccination Influenza Vaccine (#1) [facility] Start: 03-04-2022 Advance Directive Discussion Advance Directive Discussion [facility] Start: 03-04-2022 Depression Assessment Depression Assessment [facility] Start: 11-02-2021 Influenza vaccination INFLUENZA (#1) [facility] Start: 03-30-2021 COVID-19 VACCINE (4 - Booster for Pfizer series) COVID-19 VACCINE (4 - Booster for Pfizer series) [facility] Start: 03-04-2021 ADVANCE DIRECTIVE DISCUSSION ADVANCE DIRECTIVE DISCUSSION [facility] Start: 03-04-2021 DEPRESSION ASSESSMENT DEPRESSION ASSESSMENT [facility] Start: 01-23-2021 COVID-19 VACCINE (4 - Booster for Pfizer series) COVID-19 VACCINE (4 - Booster for Pfizer series) [facility] Start: 08-06-2017 End: 08-06-2017 Appointment Appointment [facility] Work Phone: Start: 08-06-2017 End: 08-06-2017 Appointment Appointment [facility] Work Phone: Start: 07-04-2017 End: 01-04-2017 *Hepatic Function Panel *Hepatic Function Panel [facility] Work Phone: Start: 07-04-2017 End: 01-04-2017 Lipid panel [AGGREGATE] *Lipid Profile CC PCP [facility] Work Phone: Start: 01-07-2017 End: 07-13-2016 *Hepatic Function Panel *Hepatic Function Panel [facility] Work Phone: Start: 01-07-2017 End: 07-13-2016 Lipid panel [AGGREGATE] *Lipid Profile CC PCP [facility] Work Phone: Start: 01-07-2017 End: 07-13-2016 *Hepatic Function Panel *Hepatic Function Panel [facility] Work Phone: Start: 01-07-2017 End: 07-13-2016 Lipid panel [AGGREGATE] *Lipid Profile CC PCP [facility] Work Phone: Start: 01-03-2017 End: 01-03-2017 *Hepatic Function Panel *Hepatic Function Panel [facility] Work Phone: Start: 01-03-2017 End: 01-03-2017 Lipid panel [AGGREGATE] *Lipid Profile CC PCP [facility] Work Phone: Start: 11-20-2016 End: 11-20-2016 Appointment Appointment [facility] Start: 11-19-2016 End: 11-19-2016 Dxa bone density study 1/> sites axial skel Dual-energy X-ray absorptiometry (DXA), bone density study, 1 or more sites; [employer] [email or web address] Work Phone: Start: 11-19-2016 End: 11-19-2016 Appointment Appointment [facility] Start: 11-19-2016 End: 11-19-2016 Dxa bone density, axial Dual-energy X-ray absorptiometry (DXA), bone density study, 1 or more sites; [facility] Start: 10-31-2016 Mammography [facility] Start: 09-21-2016 End: 09-21-2016 Mammogram, screening Mammogram-Bilateral, Screening, Bilateral [employer] [email or web address] Work Phone: Start: 09-21-2016 End: 09-21-2016 Mammogram, screening Mammogram-Bilateral, Screening, Bilateral [facility] Start: 07-31-2016 End: 07-31-2016 Appointment Appointment [facility] Work Phone: Start: 07-31-2016 End: 07-31-2016 SYSTEMS DESIGN ENGINEER SYSTEMS DESIGN ENGINEER [facility] Work Phone: Start: 07-31-2016 End: 07-31-2016 Follow Up Appt 1 year Follow Up Appt 1 year [facility] Work Phone: Start: 07-31-2016 End: 07-31-2016 SYSTEMS DESIGN ENGINEER SYSTEMS DESIGN ENGINEER [facility] Work Phone: Start: 07-31-2016 End: 07-31-2016 Follow Up Appt 1 year Follow Up Appt 1 year [facility] Work Phone: Start: 07-24-2016 End: 07-24-2016 Appointment Appointment [facility] Work Phone: Start: 07-09-2016 End: 07-05-2016 *Hepatic Function Panel *Hepatic Function Panel [facility] Work Phone: Start: 07-09-2016 End: 07-05-2016 Lipid panel [AGGREGATE] *Lipid Profile CC PCP [facility] Work Phone: Start: 07-09-2016 End: 07-05-2016 *Hepatic Function Panel *Hepatic Function Panel [facility] Work Phone: Start: 07-09-2016 End: 07-05-2016 Lipid panel [AGGREGATE] *Lipid Profile CC PCP [facility] Work Phone: Start: 04-04-2016 Colonoscopy COLONOSCOPY [facility] Start: 04-04-2016 COLORECTAL CANCER SCREENING COLORECTAL CANCER SCREENING [facility] Start: 01-17-2016 End: 01-17-2016 SYSTEMS DESIGN ENGINEER SYSTEMS DESIGN ENGINEER [facility] Work Phone: Start: 01-17-2016 End: 01-17-2016 Follow Up Appt 6 months Follow Up Appt 6 months [facility] Work Phone: Start: 01-17-2016 End: 01-17-2016 SYSTEMS DESIGN ENGINEER SYSTEMS DESIGN ENGINEER [facility] Work Phone: Start: 01-17-2016 End: 01-17-2016 Follow Up Appt 6 months Follow Up Appt 6 months [facility] Work Phone: Start: 01-16-2016 End: 01-10-2016 *Hepatic Function Panel *Hepatic Function Panel [facility] Work Phone: Start: 01-16-2016 End: 01-10-2016 Lipid panel [AGGREGATE] *Lipid Profile CC PCP [facility] Work Phone: Start: 01-16-2016 End: 01-10-2016 *Hepatic Function Panel *Hepatic Function Panel [facility] Work Phone: Start: 01-16-2016 End: 01-10-2016 Lipid panel [AGGREGATE] *Lipid Profile CC PCP [facility] Work Phone: Start: 07-14-2015 End: 07-14-2015 Follow Up Appt 6 months Follow Up Appt 6 months [facility] Work Phone: Start: 07-14-2015 End: 07-14-2015 MMM MMM [facility] Work Phone: Start: 07-14-2015 End: 07-14-2015 Follow Up Appt 6 months Follow Up Appt 6 months [facility] Work Phone: Start: 07-14-2015 End: 07-14-2015 MMM MMM [facility] Work Phone: Start: 07-06-2015 End: 07-15-2015 *Hepatic Function Panel *Hepatic Function Panel [facility] Work Phone: Start: 07-06-2015 End: 07-15-2015 Lipid panel [AGGREGATE] *Lipid Profile CC PCP [facility] Work Phone: Start: 07-06-2015 End: 07-15-2015 *Hepatic Function Panel *Hepatic Function Panel [facility] Work Phone: Start: 07-06-2015 End: 07-15-2015 Lipid panel [AGGREGATE] *Lipid Profile CC PCP [facility] Work Phone: Start: 01-04-2015 End: 01-04-2015 *Hepatic Function Panel *Hepatic Function Panel [facility] Work Phone: Start: 01-04-2015 End: 01-04-2015 Lipid panel [AGGREGATE] *Lipid Profile CC PCP [facility] Work Phone: Start: 01-04-2015 End: 01-04-2015 *Hepatic Function Panel *Hepatic Function Panel [facility] Work Phone: Start: 01-04-2015 End: 01-04-2015 Lipid panel [AGGREGATE] *Lipid Profile CC PCP [facility] Work Phone: Start: 07-15-2014 End: 07-15-2014 SYSTEMS DESIGN ENGINEER SYSTEMS DESIGN ENGINEER [facility] Work Phone: Start: 07-15-2014 End: 01-05-2016 Follow Up Appt 1 year Follow Up Appt 1 year [facility] Work Phone: Start: 07-15-2014 End: 07-15-2014 SYSTEMS DESIGN ENGINEER SYSTEMS DESIGN ENGINEER [facility] Work Phone: Start: 07-15-2014 End: 01-05-2016 Follow Up Appt 1 year Follow Up Appt 1 year [facility] Work Phone: Start: 07-05-2014 End: 07-05-2014 *Hepatic Function Panel *Hepatic Function Panel [facility] Work Phone: Start: 07-05-2014 End: 07-05-2014 Lipid panel [AGGREGATE] *Lipid Profile CC PCP [facility] Work Phone: Start: 07-05-2014 End: 07-05-2014 *Hepatic Function Panel *Hepatic Function Panel [facility] Work Phone: Start: 07-05-2014 End: 07-05-2014 Lipid panel [AGGREGATE] *Lipid Profile CC PCP [facility] Work Phone: Start: 01-19-2014 Lipid 1996 panel - Serum or Plasma Lipid Screening [facility] Start: 01-19-2014 LIPID SCREEN LIPID SCREEN [facility] Start: 01-02-2014 End: 01-05-2014 *Hepatic Function Panel *Hepatic Function Panel [facility] Work Phone: Start: 01-02-2014 End: 01-05-2014 Lipid panel [AGGREGATE] *Lipid Profile CC PCP [facility] Work Phone: Start: 01-02-2014 End: 01-05-2014 *Hepatic Function Panel *Hepatic Function Panel [facility] Work Phone: Start: 01-02-2014 End: 01-05-2014 Lipid panel [AGGREGATE] *Lipid Profile CC PCP [facility] Work Phone: Start: 01-01-2014 End: 01-01-2014 SYSTEMS DESIGN ENGINEER SYSTEMS DESIGN ENGINEER [facility] Work Phone: Start: 01-01-2014 End: 01-01-2014 Follow Up Appt 6 months Follow Up Appt 6 months [facility] Work Phone: Start: 01-01-2014 End: 01-01-2014 SYSTEMS DESIGN ENGINEER SYSTEMS DESIGN ENGINEER [facility] Work Phone: Start: 01-01-2014 End: 01-01-2014 Follow Up Appt 6 months Follow Up Appt 6 months [facility] Work Phone: Start: 07-02-2013 End: 07-03-2013 *Hepatic Function Panel *Hepatic Function Panel [facility] Work Phone: Start: 07-02-2013 End: 07-03-2013 Lipid panel [AGGREGATE] *Lipid Profile CC PCP [facility] Work Phone: Start: 07-02-2013 End: 07-03-2013 *Hepatic Function Panel *Hepatic Function Panel [facility] Work Phone: Start: 07-02-2013 End: 07-03-2013 Lipid panel [AGGREGATE] *Lipid Profile CC PCP [facility] Work Phone: Start: 07-01-2013 End: 07-01-2013 Follow Up Appt 6 months Follow Up Appt 6 months [facility] Work Phone: Start: 07-01-2013 End: 07-01-2013 MMM MMM [facility] Work Phone: Start: 07-01-2013 End: 07-01-2013 Follow Up Appt 6 months Follow Up Appt 6 months [facility] Work Phone: Start: 07-01-2013 End: 07-01-2013 MMM MMM [facility] Work Phone: Start: 05-29-2013 End: 12-22-2013 *BMP *BMP [facility] Work Phone: Start: 05-29-2013 End: 12-22-2013 *BMP *BMP [facility] Work Phone: Start: 05-02-2013 End: 07-15-2013 *Hepatic Function Panel *Hepatic Function Panel [facility] Work Phone: Start: 05-02-2013 End: 07-15-2013 Lipid panel [AGGREGATE] *Lipid Profile CC PCP [facility] Work Phone: Start: 05-02-2013 End: 07-15-2013 *Hepatic Function Panel *Hepatic Function Panel [facility] Work Phone: Start: 05-02-2013 End: 07-15-2013 Lipid panel [AGGREGATE] *Lipid Profile CC PCP [facility] Work Phone: Start: 01-06-2013 End: 12-22-2013 Follow Up Appt Other Follow Up Appt Other [facility] Work Phone: Start: 01-06-2013 End: 12-22-2013 Follow Up Appt Other Follow Up Appt Other [facility] Work Phone: Start: 01-05-2013 End: 01-05-2013 *BMP *BMP [facility] Work Phone: Start: 01-05-2013 End: 01-05-2013 *BMP *BMP [facility] Work Phone: Start: 12-08-2012 End: 12-08-2012 DJN DJN [facility] Work Phone: Start: 12-08-2012 End: 12-08-2012 Follow Up Appt 1 year Follow Up Appt 1 year [facility] Work Phone: Start: 12-08-2012 End: 12-22-2013 Lipid panel [AGGREGATE] *Lipid Profile CC PCP [facility] Work Phone: Start: 12-08-2012 End: 12-08-2012 DJN DJN [facility] Work Phone: Start: 12-08-2012 End: 12-08-2012 Follow Up Appt 1 year Follow Up Appt 1 year [facility] Work Phone: Start: 12-08-2012 End: 12-22-2013 Lipid panel [AGGREGATE] *Lipid Profile CC PCP [facility] Work Phone: Start: 11-26-2012 End: 12-02-2012 *Hepatic Function Panel *Hepatic Function Panel [facility] Work Phone: Start: 11-26-2012 End: 12-02-2012 Lipid panel [AGGREGATE] *Lipid Profile [facility] Work Phone: Start: 11-26-2012 End: 12-02-2012 *Hepatic Function Panel *Hepatic Function Panel [facility] Work Phone: Start: 11-26-2012 End: 12-02-2012 Lipid panel [AGGREGATE] *Lipid Profile [facility] Work Phone: Start: 05-26-2012 End: 05-26-2012 Follow Up Appt 6 months Follow Up Appt 6 months [facility] Work Phone: Start: 05-26-2012 End: 05-26-2012 Follow Up Appt 6 months Follow Up Appt 6 months [facility] Work Phone: Start: 05-07-2012 End: 05-14-2012 *Hepatic Function Panel *Hepatic Function Panel [facility] Work Phone: Start: 05-07-2012 End: 05-14-2012 Lipid panel [AGGREGATE] *Lipid Profile [facility] Work Phone: Start: 05-07-2012 End: 05-14-2012 *Hepatic Function Panel *Hepatic Function Panel [facility] Work Phone: Start: 05-07-2012 End: 05-14-2012 Lipid panel [AGGREGATE] *Lipid Profile [facility] Work Phone: Start: 11-15-2011 End: 11-15-2011 Ecg routine ecg w/least 12 lds w/i&r EKG (In office) [facility] Work Phone: Start: 11-15-2011 End: 11-15-2011 Follow Up Appt 6 months Follow Up Appt 6 months [facility] Work Phone: Start: 11-15-2011 End: 11-15-2011 Electrocardiogram, complete EKG (In office) [facility] Work Phone: Start: 11-15-2011 End: 11-15-2011 Follow Up Appt 6 months Follow Up Appt 6 months [facility] Work Phone: Start: 11-07-2011 End: 10-18-2011 *Hepatic Function Panel *Hepatic Function Panel [facility] Work Phone: Start: 11-07-2011 End: 10-18-2011 Lipid panel [AGGREGATE] *Lipid Profile [facility] Work Phone: Start: 11-07-2011 End: 10-18-2011 *Hepatic Function Panel *Hepatic Function Panel [facility] Work Phone: Start: 11-07-2011 End: 10-18-2011 Lipid panel [AGGREGATE] *Lipid Profile [facility] Work Phone: Start: 08-06-2011 End: 10-18-2011 *Hepatic Function Panel *Hepatic Function Panel [facility] Work Phone: Start: 08-06-2011 End: 10-18-2011 Lipid panel [AGGREGATE] *Lipid Profile [facility] Work Phone: Start: 08-06-2011 End: 10-18-2011 *Hepatic Function Panel *Hepatic Function Panel [facility] Work Phone: Start: 08-06-2011 End: 10-18-2011 Lipid panel [AGGREGATE] *Lipid Profile [facility] Work Phone: Start: 05-15-2011 End: 05-15-2011 Follow Up Appt 6 months Follow Up Appt 6 months [facility] Work Phone: Start: 05-15-2011 End: 05-15-2011 Follow Up Appt 6 months Follow Up Appt 6 months [facility] Group Work Phone: Start: 04-22-2010 Adult depression screening assessment DEPRESSION SCREENING [facility] Start: 2009 RSV Vaccine (1 - 1-dose 60+ series) RSV Vaccine (1 - 1-dose 60+ series) [facility] Start: 1994 COLOGUARD (FIT-DNA) COLOGUARD (FIT-DNA) [facility] Start: [address] COLONOGRAPHY [facility] Start: 1994 FECAL OCCULT BLOOD FECAL OCCULT BLOOD [facility] Start: 1994 SIGMOIDOSCOPY SIGMOIDOSCOPY [facility] Start: 1968 Urine microalbumin profile [facility] Start: 1967 ANNUAL PCP TEAM CHRONIC DISEASE VISIT ANNUAL PCP TEAM CHRONIC DISEASE VISIT [facility] Start: 1967 Hepatitis B surface antibody level LDL CHOLESTEROL [facility] Start: 1967 HEPATITIS C SCREENING HEPATITIS C SCREENING [facility] Patient Education [employer] Work Phone: Immunizations Immunization Date Immunization Notes Care Provider Fa sacha 12-10-2020 influenza virus vacc ine, unspecified formulation Ct (I-Stat) Work Phone: [facility] 11-18-2019 influenza, injectabl e, quadrivalent, preservative free Aury Don MD Work Phone: [facility] 10-20-2019 pneumococcal polysaccharide vaccine, 23 valent Aury Don MD Work Phone: [facility] 08-06-2019 zoster vaccine recombinant Aury Don MD Work Phone: [facility] 05-28-2019 zoster vaccine recombinant Aury Don MD Work Phone: [facility] 12-08-2018 influenza, seasonal, injectable Aury oDn MD Work Phone: [facility] 11-25-2014 influenza, seasonal, injectable Aury Don MD Work Phone: [facility] 11-25-2014 pneumococcal conjuga te vaccine, 13 valent Aury Don MD Work Phone: [facility] 12-09-2012 influenza, seasonal, injectable Aury Don MD Work Phone: [facility] 12-06-2011 influenza, seasonal, injectable Aury Don MD Work Phone: [facility] Payers Date Payer Category Payer Medicare MEDICARE MEDICAR E A AND B [id number] 2016-Present [phone] [place] [address] Medicare [id number] 2016 Medicare MEDICARE MEDICAR E A AND B [id number] 2016-Present [phone] [place] [address] Medicare [id number] 2016 Medicare [id number] 2016 Private Health Insurance [facility] AARP SUPPLEMENT [id number] 2016-Present [phone] [address] [place] [address] Indemnity [id number] 2016 Private Health Insurance [facility] AARP SUPPLEMENT [id number] 2016-Present [phone] [address] [place] [address] Indemnity [id number] 2016 Unknown [id number] Social History Date Type Detail Facility Start: 07-05-2011 Tobacco smoking status NHIS Ex-smoke r [facility] End: 03-04-1979 History of tobacco use Current smoker [facility] Start: 01-20-2020 End: 05-01-2021 Alcohol intake Current drinker of alcohol (finding) [facility] Start: 08-31-2013 History SDOH Alcohol Comment Occasionally [facility] Start: 01-12-2020 History SDOH Financial 4 [facility] Start: 01-12-2020 History SDOH Food Worry 1 [facility] Start: 01-12-2020 History SDOH Transport Med 2 [facility] Start: 01-12-2020 Education 17 [facility] Start: 1950 Sex Assigned At Not on file [facility] End: 03-04-1979 History of tobacco use Cigarette Smoker [facility] Start: 07-05-2011 Tobacco use and exposure Smoke less tobacco non-user [facility] Start: 01-20-2020 End: 02-07-2020 History of Social function [place] [facility]honathan Start: 01-20-2020 End: 02-07-2020 Tobacco use panel [facility] How hard is it for y ou to pay for the very basics like food, housing, medical care, and heating Not very hard [facility] (I/We) worried whejojo er (my/our) food would run out before (I/we) got money to buy more. Never true [facility] In the past 12 month s, has lack of transportation kept you from medical appointments or from getting medications? No [facility] Start: 01-04-2020 Gender identity Identifies as female gender (finding) [facility] Start: 02-06-2020 End: 03-07-2020 Exposure to SARS-CoV-2 (event) Not sure [facility] Note 01-11-2022 Telephone Encounter - Adonis Murray RN - 01/11/2022 11:05 AM ESTTelephone Encounter - Kacey FARRELL - 01/10/2022 3:19 PM EST Note Date & Type Note Facility 01-11-2022 Miscellaneous Notes Formattin g of this note might be different from the original. Returned call. I informed her that her last CEA level would have been this summer and she would not need another one completed. She only needed CEA levels for 2 years after her diagnosis. If she wanted to, I could contact Dr Don and have another order placed for one more CEA level to ease her mind. She states she feels good and does not feel it is necessary. She had her colonoscopy last year, which was normal, and does not need another scope until fall. She will call the office back with any other questions or concerns. Summary: CEA Order Patient called to check about the need for CEA every 6 months through 2024. Please call to discuss. documented in this encounter [facility] Note 07-11-2021 Telephone Encounter - Adonis Murray RN - 07/11/2021 3:30 PM EDTTelephone Encounter - Kacey FARRELL - 07/11/2021 3:01 PM EDT Note Date & Type Note Facility 07-11-2021 Miscellaneous Notes Returned call and left voice message to inform her that she does not need a CEA level. She can follow up in the office as needed. She will call back with any questions or concerns. Patient called to have nurse place CEA orders.[phone] documented in this encounter [facility] Progress note 05-01-2021 Note Date & Type Note Facility 05-01-2021 Note HNO ID: [id number] Author: Aury Don MD Service: ? Author Type: Physician Type: Progress Notes Filed: 05/03/2021 10:58 AM Note Text: COLORECTAL SURGERY May 01, 2021 Tova B Axel 71 year old Chief Complaint: follow up History of Present Illness: Tova Reyna is a 71 year old female presents to the office for a follow up evaluation after undergoing Laparoscopic right hemicolectomy?on 01/11/2020. 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 Colon, right, adenocarcinoma, immunohistochemical staining for mismatch repair proteins: Result (invasive carcinoma): - Loss of MLH1 and PMS2 proteins in invasive carcinoma nuclei. - Normal expression of MSH2 and MSH6 proteins in invasive carcinoma nuclei. Result (in-situ carcinoma): - Loss of expression of MSH2, MSH6, MLH1, and PMS2 proteins in in-situ carcinoma nuclei. Mismatch repair (MMR) status: Deficient (microsatellite unstable) CEA 04/12/21: 0.8 PAST MEDICAL HISTORY Diagnosis Date - Anxiety - Benign hypertensive heart disease without heart failure - Coronary atherosclerosis of unspecified type of vessel, [place] or graft 05/2007 Coronary artery disease - osteopenia 2003 osteopenia T-score -2.2, T-score -2.4 (2007), on fosamax 07/2009 [facility] T-screo -1.7 - Panic attacks saw Dr Sweet 04/2009 - Postmenopausal hormone replacement therapy [id number] - Spinal stenosis 2008 - Symptomatic menopausal or female climacteric states 2000 age 49 - Tobacco use disorder complicating , childbirth, or the puerperium, unspecified as to episode of care or not applicable quit PAST SURGICAL HISTORY Procedure Laterality Date - APPENDECTOMY - BREAST BIOPSY 2 times - fibrocystic when she was on HT x 4 yrs, stopped 5 yrs ago - CABG, ARTERY-VEIN, FOUR 05/2007 5 STENTS - COLONOSCOP W/ OR W/O [facility] SPEC 04/2006 Colonoscopy - REMOVAL OF TONSILS,<12 Y/O Tonsillectomy - RT/LT HEART CATHETERS 2009 CC AND CA, R AND L heart Current Outpatient Medications Medication Sig Dispense Refill - ferrous sulfate 325 mg (65 mg iron) tablet Take 325 mg by mouth daily with breakfast. - magnesium oxide 400 mg magnesium cap Take by mouth. - cholecalciferol, vitamin D3, (VITAMIN D3 ORAL) Take 1,000 Units by mouth. - iv contrast (will be provided with radiology test) CT ABD/PEL -Inject, intravenously, once for 1 dose.No IV access, insert saline lock prior to the beginning of sedation, infusion, injection of imaging exam. Discontinue saline lock post exam. If Pt. has a central line or IVAD, may access for administration according to line specific nursing protocol. Once exam is complete flush line and de-access according to line specific nursing protocol in the CT contrast administration guidelines link. 1 Each 0 - enteric contrast (will be provided with radiology test) For CT ABD/PEL W IVCON Routine order Administer, As Directed One Time Only, via Oral, Rectal, both Oral and Rectal, Enteric Tube, Stoma or Indwelling Catheter, Enteric Contrast as designated per enteric contrast guidelines 1 Each 0 - acetaminophen (TYLENOL) 500 mg tablet Take 2 tablets by mouth every 6 hours. - lactobacillus rhamnosus (CULTURELLE) 10 billion cell capsule Take 1 capsule by mouth once daily. 30 capsule 0 - pantoprazole sodium (PANTOPRAZOLE ORAL) Take 40 mg by mouth once daily. - rosuvastatin (CRESTOR) 10 mg tablet Take 10 mg by mouth once daily. - desvenlafaxine ER (PRISTIQ) 50 mg 24 hr tablet Take 50 mg by mouth once daily. - carvedilol (COREG) 25 mg tablet Take 25 mg by mouth twice daily with meals. - losartan (COZAAR) 100 mg tablet Take 100 mg by mouth once daily. - HYDROCHLOROTHIAZIDE 25 mg tablet - duloxetine (CYMBALTA) 60 mg ORAL capsule Take 60 mg by mouth once daily. - CALCIUM + D 600 MG-200 UNIT TAB Take one(1) tablet twice daily. 0 No current facility-administered medications for this visit. ALLERGIES Allergen Reactions - Erythromycin GI Upset - Quinolones Other: See Comments Causes tendinitis - Z Pack [Azithromyci* GI Upset FAMILY HISTORY Problem Relation Age of Onset - Cancer Mother CANCER OF MOUTH - Cancer Father renal cell carcinoma - other (Heart dse [Other]) Father had stents - other (Healthy [Other]) Son - other (Healthy [Other]) Son - other (Healthy [Other]) Son Social History Tobacco Use - Smoking status: Former Smoker Quit date: 03/04/1979 Years since quittin.1 - Smokeless tobacco: Never Used Vaping Use - Vaping Use: Never used Substance Use Topics - Alcohol use: Yes Comment: Occasionally - Drug use: No Physical Exam: There were no vitals taken for this visit. General Appearance: Well appearing, alert, in no acute distress, well-hydrated, well nourished. Skin: Skin color, texture, turgor normal Head: Normocephalic Oropharynx: Lips, mucosa, and tongue normal Neck: S (more content not included)... [facility] History of Present illness Narrative 03-07-2020 Jeanine Rivera (Tech), Tech - 03/07/2020 1:20 PM EST Note Date & Type Note Facility 03-07-2020 History of Presen t illness Narrative Radiology Service Progress Note DATE OF SERVICE: March 07, 2020 TIME: 12:31 PM PATIENT WEIGHT: 140 LBS PATIENT IDENTITY VERIFICATION COMPLETED USING TWO (2) STANDARD IDENTIFIERS: Name and Date of confirmed by patient verbally. FALL SCREENING: Has the patient had 2 falls in the last year or 1 fall with injury or currently using an Ambulatory Assistive Device (Walker, Cane, Wheelchair, Crutches, etc.)? No PATIENT GENDER DATA: Female. status: : No status: NO. ALLERGIES: Reviewed and unchanged CONTRAST ALLERGY: No EXAM: CT -CONTRAST INDUCED NEPHROPATHY RISK FACTORS: Patient age > 60 years CREATININE: Creatinine Date Value Ref Range Status 01/14/2020 0.62 (L) 0.70 - 1.40 mg/dL Final 01/13/2020 0.88 0.70 - 1.40 mg/dL Final Comment: Reviewed 01/12/2020 1.30 0.70 - 1.40 mg/dL Final eGFR-All Other Races Date Value Ref Range Status 01/14/2020 >60 >60 . Final eGFR- Date Value Ref Range Status 01/14/2020 >60 >60 Final P.O.C.T. RESULTS: N/A March 07, 2020 TREATMENT: No Hydration needed. IV SITE: Ambulatory: A peripheral IV was started in the Left antecubital site with a Angio cath: 20 gauge. and A Saline lock was inserted per protocol IV SITE APPEARANCE: Clean,Dry and Intact SIGNATURE: ASA JEFF RN PATIENT NAME: Tova Reyna DATE: March 07, 2020 TIME: 12:31 PM Radiology Service Progress Note PATIENT NAME: Tova Reyna DATE OF SERVICE: March 07, 2020 TIME: 1:34 PM PATIENT IDENTITY VERIFICATION COMPLETED USING TWO (2) IDENTIFIERS: Name and Date of confirmed by patient verbally. FALL SCREENING: Has the patient had 2 falls in the last year or 1 fall with injury or currently using an Ambulatory Assistive Device (Walker, Cane, Wheelchair, Crutches, etc.)? No PATIENT GENDER DATA: Female. status: : No status: NO. PATIENT RELEVANT IMPLANT DATA REVIEWED: Yes RADIOLOGY DEPARTMENT: CT; Exam(s) Completed: Abdomen/Pelvis PERIPHERAL IV DATA: Site assessment: Clean,Dry and Intact, Site disposition Discontinued SIGNED BY: Renetta Burris March 07, 2020 1:34 PM documented in this encounter [facility] History of Past illness Narrative 06-29-2009 Note Date & Type Note Facility documented as of this encounter (statuses as of 07/11/2021) [facility] History of Past illness Narrative 06-29-2009 Note Date & Type Note Facility documented as of this encounter (statuses as of 01/11/2022) [facility] History of Past illness Narrative 06-29-2009 Note Date & Type Note Facility documented as of this encounter (statuses as of 01/06/2023) [facility] History of Past illness Narrative 06-29-2009 Note Date & Type Note Facility documented as of this encounter (statuses as of 01/06/2023) [facility] Evaluation note Note Date & Type Note Facility documented in this encounter [facility] Evaluation note Note Date & Type Note Facility documented in this encounter [facility] Summary Purpose Family History No Family History Records FoundNo Family History Records FoundNo Family History Records Found Advance Directives Documents on File Type Date Recorded Patient E Commerce Manager Expl anation Advance Directive(s) 02/02/2020 6:52 PM Advance Directive(s) 01/06/2020 10:54 AM f airview Documents on File Type Date Recorded Patient E Commerce Manager Expl anation Advance Directive(s) 02/02/2020 6:52 PM Hospital Course Note HNO ID: [id number] Author: Alba pompa (Dolly) Judy Service: Colorectal Author Type: Nurse Practitioner Type: Discharge Summary Filed: 01/25/2020 12:24 PM Note Text: Attestation signed by Aury Don at 01/25/2020 3:23 PM G DISCHARGE SUMMARY PATIENT NAME: Tova Reyna ADMISSION DATE: 01/11/2020 DISCHARGE DATE: 01/14/2020 ATTENDING PHYSICIAN: Aury Don Code Status: Not on file Highest Readmission Risk Score: 12 The 30 day readmissions risk score is derived from an internally validated risk model which evaluates patient level characteristics, utilization history, medication orders and lab results up until the day of discharge. Patients with a score of 40 or above are considered highest risk for readmission. Specific patient level drivers will be listed at the bottom of the summary. CONSULTING (more content not included)... Note HNO ID: [id number] Author: Felix Bojorquez Service: ? 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 GLOBAL CREATIVE CHAIRMAN: Hermelinda Bojorquez Performed by: GLOBAL CREATIVE CHAIRMAN Indications and Patient Condition Preoxygenated: yes Patient position: sniffing Difficult Mask: No Indications for airway management: anesthesia anesthesia circuit Method: asleep Final Airway Details Final airway type: endotracheal airway Final Endotracheal Airway: ETT Cuffed: yes Successful intubation technique: video laryngoscopy Devices used: Brown Endotracheal tube insertion site: oral Blade size: #3 ETT size (mm): 7.0 Measured from: lips Measurement (cm): 23 Placement verified by: capnometry Cormack-Lehane Classification: grade I - full view of glottis (more content not included)... Procedure Findings Note HNO ID: [id number] Author: Felix Bojorquez Service: ? 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0 Measured from: lips Measurement (cm): 23 Placement verified by: capnometry Cormack-Lehane Classification: grade I - full view of glottis (more content not included)... Additional Source Comments INFORMATION SOURCE (unrecogn ized section and content) DATE CREATED AUTHOR AUTHOR'S ORGANIZ ATION 02/07/2020 [facility] DATE CREATED AUTHOR AUTHOR'S ORGANIZ ATION 01/12/2022 [facility] Source Comments (unrecognize d section and content) In the event this informatio n is protected by the Federal Confidentiality of Alcohol and Drug Abuse Patient Records regulations: The Federal rules restrict any use of the information to criminally investigate or prosecute any alcohol or drug abuse patient.[facility] the event this information is protected by the Federal Confidentiality of Alcohol and Drug Abuse Patient Records regulations: The Federal rules restrict any use of the information to criminally investigate or prosecute any alcohol or drug abuse patient.[facility] the event this information is protected by the Federal Confidentiality of Alcohol and Drug Abuse Patient Records regulations: The Federal rules restrict any use of the information to criminally investigate or prosecute any alcohol or drug abuse patient.[facility] the event this information is protected by the Federal Confidentiality of Alcohol and Drug Abuse Patient Records regulations: The Federal rules restrict any use of the information to criminally investigate or prosecute any alcohol or drug abuse patient.[facility] Reason for Visit (unrecogniz ed section and content) Reason Comments Lab Orders CEA, Every 6 Month q uestion Reason Comments Radiology CT Care Teams (unrecognized sec tion and content) [facility] Ord[facility] Relationship Specialty Start Date End Date Jaren Donahue MD [address] [facility] [place], [place] [id number] PCP - General Family Medicine 12/29/19 County Ordinary Relationship Specialty Start Date End Date Jaren Donahue MD [address] [place] [address] PCP - General Family Medicine 12/29/19 County Ordinary Relationship Specialty Start Date End Date Jaren Donahue MD [address] [place] [address] PCP - General Family Medicine 12/29/19 FOR RECORDS PERTAINING TO PATIENTS WHO ARE OR HAVE BEEN ENROLLED IN A CHEMICAL DEPENDENCY/SUBSTANCEABUSE PROGRAM, SOME INFORMATION MAY BE OMITTED. This clinical summary was aggregated from multiple sources. Caution should be exercised in using it in the provision of clinical care. This summary normalizes information from multiple sources, and as a consequence, information in this document may materially change the coding, format and clinical context of patient data. In addition, data may be omitted in some cases. CLINICAL DECISIONS SHOULD BE BASED ON THE PRIMARY CLINICAL RECORDS. [facility]. provides no warranty or guarantee of the accuracy or completeness of information in this document.
== END | disposition home or self-care (01) ==
LOC: MTRAD 16:25
PROVIDERS: PCP Family Medicine; Referring Provider Family Medicine; Visit Provider Family Medicine
DX: R22.32 Localized swelling, mass and lump, left upper limb (principal)
CPT/HCPCS: 73000

== ENCOUNTER → 2023-05-22 | Outpatient (CLI) | payer MEDICARE, OTHER, SELFPAY ==
--- NOTE | 2023-05-22 12:48 | RAD_ITS ---
INDICATION: BRONCHITIS EXAMINATION/TECHNIQUE: X-RAY - XR Chest 2 Views COMPARISON: 05/24/2013 chest radiograph. Findings: Frontal and lateral views of the chest. LUNG PARENCHYMA: No acute focal airspace disease or mass lesion. PLEURA: No pleural effusion. No pneumothorax. HEART/GREAT VESSELS: Cardiomediastinal silhouette is not enlarged. Endovascular coronary artery stent material. BONES: Lumbar spine orthopedic hardware without obvious hardware complication, although incompletely imaged. RAD/Chest PA and Lateral IMPRESSION: Chest with no obvious acute disease. Electronically Signed: Ever Chavarria MD at 2:12 EDT ,
== END | disposition home or self-care (01) ==
PROVIDERS: PCP Family Medicine; Referring Provider Family Medicine; Visit Provider Family Medicine
DX: J40 Bronchitis, not specified as acute or chronic (principal)
CPT/HCPCS: 71046

== ENCOUNTER → 2023-06-03 | Outpatient (CLI) | payer MEDICARE, OTHER, SELFPAY ==
--- NOTE | 2023-06-03 07:49 | CT_ITS ---
STUDY: CT LEFT SHOULDER REASON FOR EXAM: Female, 73 years old. MASS--ABNORMAL XRAY RADIATION DOSAGE (If Supplied By Facility): CTDIvol = ( 24.58 ) mGy, DLP = ( 480.71 ) mGycm TECHNIQUE: The patient was scanned in a multi detector CT scanner. High resolution transaxial imaging was performed without the administration of intravenous contrast material. Sagittal and coronal images were reconstructed. Individualized dose optimization techniques were used for this CT. COMPARISON: None. FINDINGS: Normal glenohumeral articulation. Normal glenoid rim, neck and visualized scapula. Normal humeral head, neck and tuberosities. There is calcific density along the subscapularis tendon (axial series 3 images 50-51), suggestive of calcific tendinitis. Normal coracoid process. Normal visualized lateral clavicle. There is mild hypertrophic acromioclavicular arthrosis with marginal osteophyte formation and subchondral cyst formation, measuring up to 1.1 cm in the superior aspect of the lateral clavicle (axial series 3 image 33). There is a ganglion cyst located superior to the lateral clavicle, overall measuring 1.7 cm AP, 2.4 cm transverse and 1.2 cm craniocaudad. There is a Type II acromial morphology (curved), with a neutral orientation. Normal visualized muscles and soft tissue structures. CT/Extremity Upper without Contra IMPRESSION: Mild hypertrophic acromioclavicular arthrosis with a 1.7 x 2.4 x 1.2 cm ganglion cyst located superior to the lateral clavicle. Suspected calcific tendinitis of the subscapularis tendon. Electronically Signed: Zachary Topete MD at 8:52 EDT ,
== END | disposition home or self-care (01) ==
PROVIDERS: PCP Family Medicine; Referring Provider Family Medicine; Visit Provider Family Medicine
DX: R22.32 Localized swelling, mass and lump, left upper limb (principal)
CPT/HCPCS: 73200

== ENCOUNTER → 2023-07-02 | Outpatient (CLI) | payer MEDICARE, OTHER, SELFPAY ==
[2023-07-02 17:52] LABS: Absolute Lymphocyte Count 0.79 X10^3/uL (0.83-4.51); Absolute Neutrophil Count 5.3 X10^3/uL (2.0-7.7); Basophil# 0.02 X10^3/uL; Basophil% 0.3 % (0-1); Eosinophil# 0.05 X10^3/uL; Eosinophils% 0.7 % (0-5); Hematocrit 38.2 % (37-47); Hemoglobin 12.8 g/dL (12.0-15.0); Lymphocyte # 0.79 X10^3/ul (0.83-4.51); Mean Corp Hgb Conc 33.5 g/dL (32-36); Mean Corpuscular Hgb 30.9 pg (27.0-32.0); Mean Corpuscular Volume 92.3 fL (81-99); Mean Platelet Vol. 10.7 fl (6.2-12.0); Monocyte# 0.92 X10^3/uL; Monocyte% 12.9 % (0-10); NRBC Flagged by Analyzer 0 % (0-5); Neutrophil # 5.33 X10^3/uL (2.7-7.7); Neutrophil % 74.5 % (47-70); Platelet Count 232 K/mm3 (150-450); RBC Distribution Width CV 13.3 % (11.6-14.6); RBC Distribution Width SD 45.1 fl (35.1-43.9); Red Blood Count 4.14 M/mm3 (4.2-5.4); White Blood Count 7.2 K/mm3 (4.4-11.0)
[2023-07-02 18:04] LABS: Erythrocyte Sedimentation Rate 11 mm/hr (0-30)
[2023-07-02 18:34] LABS: AST(SGOT) 21 U/L (15-37); Alanine Aminotransfer ALT/SGPT 25 U/L (13-56); Albumin, Serum 3.4 g/dL (3.2-5.0); Alkaline Phosphatase 66 U/L (45-117); Anion Gap 8 (5-15); BUN 17 mg/dL (7-18); BUN/Creat Ratio 18.7 RATIO (10-20); Calcium,Total 8.8 mg/dL (8.5-10.1); Chloride 92 mmol/L (98-107); Creatinine, Serum 0.91 mg/dL (0.55-1.02); EST Glomerular Filtration Rate 64 mL/min (>60); Est Glom Filt Rate - Afr Amer 78 mL/min (>60); Globulin 3.4 g/dL (2.2-4.2); Glucose 101 mg/dL (74-106); Potassium 4.1 mmol/L (3.5-5.1); Protein, Total 6.8 g/dL (6.4-8.2); Sodium Level 125 mmol/L (136-145)
[2023-07-04 04:07] LABS: Carcinoembryonic Antigen 1.5 ng/mL (0.0-4.7)
== END | disposition home or self-care (01) ==
LOC: MFPLAB 15:35
PROVIDERS: PCP Family Medicine; Visit Provider Family Medicine
DX: K58.9 Irritable bowel syndrome, unspecified (principal); C18.9 Malignant neoplasm of colon, unspecified; E78.5 Hyperlipidemia, unspecified
CPT/HCPCS: 36415; 80053; 82378; 84443; 85025; 85652

== ENCOUNTER → 2023-07-09 | Outpatient (CLI) | payer MEDICARE, OTHER, SELFPAY ==
[2023-07-09 16:08] LABS: Anion Gap 7 (5-15); BUN 14 mg/dL (7-18); BUN/Creat Ratio 12.5 RATIO (10-20); Calcium,Total 9.1 mg/dL (8.5-10.1); Chloride 95 mmol/L (98-107); Creatinine, Serum 1.12 mg/dL (0.55-1.02); EST Glomerular Filtration Rate 51 mL/min (>60); Est Glom Filt Rate - Afr Amer 61 mL/min (>60); Glucose 162 mg/dL (74-106); Potassium 3.9 mmol/L (3.5-5.1); Sodium Level 128 mmol/L (136-145)
[2023-07-09 16:19] LABS: Vitamin D,25 Hydroxy 40.3 ng/mL
== END | disposition home or self-care (01) ==
PROVIDERS: Internal Medicine Endocrinology, Diabetes & Metabolism; PCP Family Medicine; Referring Provider Family Medicine; Visit Provider Family Medicine
DX: I10 Essential (primary) hypertension (principal); E55.9 Vitamin D deficiency, unspecified; M81.0 Age-related osteoporosis without current pathological fracture; E87.1 Hypo-osmolality and hyponatremia
CPT/HCPCS: 36415; 80048; 82306

== ENCOUNTER → 2023-07-12 | Outpatient (CLI) | payer MEDICARE, OTHER, SELFPAY ==
[2023-07-12 15:42] LABS: Urine Sodium 22 mmol/L (Not Establ.)
[2023-07-12 16:01] LABS: Anion Gap 7 (5-15); BUN 15 mg/dL (7-18); BUN/Creat Ratio 15.9 RATIO (10-20); Chloride 96 mmol/L (98-107); Creatinine, Serum 0.94 mg/dL (0.55-1.02); EST Glomerular Filtration Rate 62 mL/min (>60); Est Glom Filt Rate - Afr Amer 75 mL/min (>60); Glucose 134 mg/dL (74-106); Sodium Level 131 mmol/L (136-145)
[2023-07-12 16:14] LABS: Osmolality, Serum 281 mOsm/KG (280-301)
[2023-07-12 16:15] LABS: Osmolality, Urine 395 mOsm/KG
== END | disposition home or self-care (01) ==
LOC: LAB 14:29
PROVIDERS: PCP Family Medicine; Referring Provider Internal Medicine Endocrinology, Diabetes & Metabolism; Visit Provider Internal Medicine Endocrinology, Diabetes & Metabolism
DX: E87.1 Hypo-osmolality and hyponatremia (principal)
CPT/HCPCS: 36415; 80048; 82533; 83930; 83935; 84300

== ENCOUNTER → 2023-07-17 | Outpatient (CLI) | payer MEDICARE, OTHER, SELFPAY ==
[2023-07-17 11:47] LABS: AST(SGOT) 23 U/L (15-37); Alanine Aminotransfer ALT/SGPT 26 U/L (13-56); Albumin, Serum 3.4 g/dL (3.2-5.0); Alkaline Phosphatase 61 U/L (45-117); Anion Gap 5 (5-15); BUN 12 mg/dL (7-18); Calcium,Total 9.1 mg/dL (8.5-10.1); Chloride 98 mmol/L (98-107); Cholesterol 208 mg/dL (200); Creatinine, Serum 0.71 mg/dL (0.55-1.02); EST Glomerular Filtration Rate 86 mL/min (>60); Est Glom Filt Rate - Afr Amer 104 mL/min (>60); Globulin 3.2 g/dL (2.2-4.2); Glucose 95 mg/dL (74-106); High Density Lipoprotein 130 mg/dL; Potassium 4.5 mmol/L (3.5-5.1); Protein, Total 6.6 g/dL (6.4-8.2); Sodium Level 131 mmol/L (136-145); Triglycerides 65 mg/dL; Very Low Density Lipoprotein 13 mg/dL (5-40)
== END | disposition home or self-care (01) ==
PROVIDERS: PCP Family Medicine; Visit Provider Nurse Practitioner Gerontology
DX: E78.00 Pure hypercholesterolemia, unspecified (principal); I10 Essential (primary) hypertension; E87.1 Hypo-osmolality and hyponatremia; Z51.81 Encounter for therapeutic drug level monitoring; Z79.899 Other long term (current) drug therapy
CPT/HCPCS: 36415; 80048; 80061; 80076

== ENCOUNTER → 2023-08-13 | Outpatient (CLI) | payer MEDICARE, OTHER, SELFPAY ==
--- NOTE | 2023-08-13 12:55 | RAD_ITS ---
STUDY: X-RAY - CERVICAL SPINE REASON FOR EXAM: Female, 73 years old. Neck pain. TECHNIQUE: 6 view(s) of the cervical spine, including lateral flexion and extension views, were obtained on 7 images. COMPARISON: None FINDINGS: Osteopenia. Normal anterior atlantoaxial articulation. Normal odontoid process. Reversal of the normal lordotic curve, likely positional. Diffuse moderate uncovertebral and facet sclerosis. 4 mm of anterolisthesis of L2 on L3 and L4 on L3. Intervertebral disc space narrowing diffusely most marked at C3-4, C4-5 and C5-6 with small osteophytes. Limited flexion and extension with no abnormal motion. Anterior bony neural foraminal encroachment at C3-4, C4-5 and C5-6 bilaterally. Bilateral carotid calcification. RAD/Cerv Spine Obl/Flex/Ext Comp IMPRESSION: Osteopenia with diffuse moderate cervical spondylosis and limited flexion and extension with no abnormal motion. Bilateral carotid calcification. Electronically Signed: Akash Davidson MD at 15:25 EDT ,
== END | disposition home or self-care (01) ==
LOC: MTRAD 12:52
PROVIDERS: PCP Family Medicine; Referring Provider Anesthesiology Pain Medicine; Visit Provider Anesthesiology Pain Medicine
DX: M50.30 Other cervical disc degeneration, unspecified cervical region (principal)
CPT/HCPCS: 72052

== ENCOUNTER → 2023-10-11 | Outpatient (CLI) | payer MEDICARE, OTHER, SELFPAY ==
[2023-10-11 12:55] LABS: Vitamin D,25 Hydroxy 39.8 ng/mL
[2023-10-11 12:56] LABS: ALB/GLOB Ratio 1.1 RATIO (0.9-2.4); AST(SGOT) 26 U/L (15-37); Alanine Aminotransfer ALT/SGPT 27 U/L (13-56); Albumin, Serum 3.4 g/dL (3.2-5.0); Alkaline Phosphatase 71 U/L (45-117); Anion Gap 6 (5-15); BUN 13 mg/dL (7-18); BUN/Creat Ratio 15.9 RATIO (10-20); Calcium,Total 8.8 mg/dL (8.5-10.1); Chloride 96 mmol/L (98-107); Creatinine, Serum 0.82 mg/dL (0.55-1.02); EST Glomerular Filtration Rate 73 mL/min (>60); Est Glom Filt Rate - Afr Amer 88 mL/min (>60); Globulin 3.2 g/dL (2.2-4.2); Glucose 151 mg/dL (74-106); Potassium 3.8 mmol/L (3.5-5.1); Protein, Total 6.6 g/dL (6.4-8.2); Sodium Level 129 mmol/L (136-145)
[2023-10-11 13:18] LABS: Osmolality, Serum 280 mOsm/KG (280-301)
== END | disposition home or self-care (01) ==
LOC: MTLAB 10:04
PROVIDERS: PCP Family Medicine; Referring Provider Internal Medicine Endocrinology, Diabetes & Metabolism; Visit Provider Internal Medicine Endocrinology, Diabetes & Metabolism
DX: E55.9 Vitamin D deficiency, unspecified (principal); E87.1 Hypo-osmolality and hyponatremia
CPT/HCPCS: 36415; 80053; 82306; 83930

== ENCOUNTER → 2023-10-14 | Outpatient (CLI) | payer MEDICARE, OTHER, SELFPAY ==
[2023-10-14 14:40] LABS: 24Hr.Lytes Total Volume 1500 mL; Sodium 24 HR UR 89 mmol/24h (40-220); Urine Sodium 59 mmol/L (Not Establ.)
== END | disposition home or self-care (01) ==
PROVIDERS: PCP Family Medicine; Referring Provider Internal Medicine Endocrinology, Diabetes & Metabolism; Visit Provider Internal Medicine Endocrinology, Diabetes & Metabolism
DX: E87.1 Hypo-osmolality and hyponatremia (principal)
CPT/HCPCS: 81050; 83935; 84300

== ENCOUNTER → 2023-11-27 | Outpatient (CLI) | payer MEDICARE, OTHER, SELFPAY ==
[2023-11-27 12:19] LABS: Absolute Lymphocyte Count 0.97 X10^3/uL (0.83-4.51); Absolute Neutrophil Count 4.1 X10^3/uL (2.0-7.7); Basophil# 0.02 X10^3/uL; Basophil% 0.3 % (0-1); Eosinophil# 0.04 X10^3/uL; Eosinophils% 0.7 % (0-5); Hemoglobin 11.9 g/dL (12.0-15.0); Lymphocyte # 0.97 X10^3/ul (0.83-4.51); Lymphocyte % 16.8 % (19-41); Mean Corp Hgb Conc 32.2 g/dL (32-36); Mean Corpuscular Hgb 30.6 pg (27.0-32.0); Mean Corpuscular Volume 95.1 fL (81-99); Mean Platelet Vol. 11.6 fl (6.2-12.0); Monocyte# 0.62 X10^3/uL; Monocyte% 10.7 % (0-10); NRBC Flagged by Analyzer 0 % (0-5); Neutrophil # 4.11 X10^3/uL (2.7-7.7); Platelet Count 208 K/mm3 (150-450); RBC Distribution Width CV 13.1 % (11.6-14.6); RBC Distribution Width SD 44.7 fl (35.1-43.9); Red Blood Count 3.89 M/mm3 (4.2-5.4); White Blood Count 5.8 K/mm3 (4.4-11.0)
[2023-11-27 13:14] LABS: AST(SGOT) 19 U/L (15-37); Alanine Aminotransfer ALT/SGPT 19 U/L (13-56); Albumin, Serum 3.2 g/dL (3.2-5.0); Alkaline Phosphatase 63 U/L (45-117); Anion Gap 7 (5-15); BUN 10 mg/dL (7-18); Calcium,Total 8.7 mg/dL (8.5-10.1); Chloride 99 mmol/L (98-107); Creatinine, Serum 0.77 mg/dL (0.55-1.02); EST Glomerular Filtration Rate 78 mL/min (>60); Est Glom Filt Rate - Afr Amer 94 mL/min (>60); Globulin 3.1 g/dL (2.2-4.2); Glucose 118 mg/dL (74-106); Potassium 3.9 mmol/L (3.5-5.1); Protein, Total 6.3 g/dL (6.4-8.2); Sodium Level 132 mmol/L (136-145)
== END | disposition home or self-care (01) ==
LOC: MFPLAB 10:47
PROVIDERS: PCP Family Medicine; Visit Provider Family Medicine
DX: E87.1 Hypo-osmolality and hyponatremia (principal)
CPT/HCPCS: 36415; 80053; 84443; 85025

== ENCOUNTER → 2023-12-12 | Outpatient (CLI) | payer MEDICARE, OTHER, SELFPAY ==
--- NOTE | 2023-12-12 08:52 | VDLE_ITS ---
Reason For Study: Left leg swelling RIGHT LEFT CFV is compressible, spontaneous, phasic, GSV is normal. competent and demonstrates normal CFV is compressible, spontaneous, phasic, augmentation. competent, and demonstrates normal Procedure augmentation. This is a venous duplex using B-mode, color FV is compressible, spontaneous, phasic, flow and spectral Doppler. competent and demonstrates normal Exam performed in department. augmentation. A preliminary report was called and/or faxed POP V is compressible, spontaneous, phasic, to Dr. Donahue. competent and demonstrates normal augmentation. T/P Trunk is compressible. PTV is compressible. LT PerV is compressible. VL/Venous Duplex US, Unilateral Interpretation Summary Deep veins of the left lower extremity are patent and compressible segmentally. There is no evidence of left lower extremity deep vein thrombosis. The left great saphenous vein chemo ears patent and compressible segmentally. Ordering Physician: Etienne Donahue Referring Physician: Etienne Donahue Performed By: Thao Rucker RVT
== END | disposition home or self-care (01) ==
LOC: CVS 08:50
PROVIDERS: PCP Family Medicine; Referring Provider Family Medicine; Visit Provider Family Medicine
DX: R22.42 Localized swelling, mass and lump, left lower limb (principal)
CPT/HCPCS: 93971

== ENCOUNTER → 2024-01-16 | Outpatient (CLI) | payer MEDICARE, OTHER, SELFPAY ==
--- NOTE | 2024-01-16 10:05 | RAD_ITS ---
INDICATION: PAIN EXAMINATION/TECHNIQUE: X-RAY - XR Hip Unilateral with Pelvis when performed; 2-3 Views COMPARISON: FINDINGS: PELVIC BONES: No displaced fracture, destructive or sclerotic lesions. Note that overlapping bowel shadows may however obscure fine detail. Sacroiliac joints are unremarkable. No widening of the pubic symphysis. HIPS: The articular structures are unremarkable. No displaced fracture seen in this frontal view. SOFT TISSUES: No soft tissue swelling or gas. Lower lumbar postsurgical changes. RAD/HIP, UNI W/ Pelvis 2-3 Views IMPRESSION: No evidence of displaced pelvic or hip fracture. Electronically Signed: Rah Palma DO at 8:55 EST Reading Location ID and State: [facility] / [place] Tel [phone], Service support ,
--- NOTE | 2024-01-16 10:05 | RAD_ITS ---
INDICATION: DDD EXAMINATION/TECHNIQUE: X-RAY - XR Spine Lumbar Comp W/ Bending Min 6 Views COMPARISON: August 25, 2018 FINDINGS: VERTEBRAE: Preserved vertebral body height. Grade 1 spondylolisthesis at L4-5 Surgical fusion at L3-L5. No spondylolisthesis. Preservation of the normal lumbar lordosis. Limited flexion-extension. DISCS: Narrowed L4-5 disc space. Calcified aorta. Included bowel gas pattern is non-obstructive. RAD/L/S Spine Comp/w Bending Views IMPRESSION: Degenerative and postsurgical changes of the lumbar column. No significant interval changes. Electronically Signed: Rah Palma DO at 9:01 EST ,
== END | disposition home or self-care (01) ==
PROVIDERS: PCP Family Medicine; Referring Provider Clinical Nurse Specialist Adult Health; Visit Provider Clinical Nurse Specialist Adult Health
DX: M25.552 Pain in left hip (principal)
CPT/HCPCS: 72114; 73502

== ENCOUNTER → 2024-01-20 | Outpatient (CLI) | payer MEDICARE, OTHER, SELFPAY ==
--- NOTE | 2024-01-20 09:04 | BI_ITS ---
MAMMOGRAPHY - BILATERAL SCREENING REASON FOR EXAM: Female, 73 years old. Routine annual screening examination. PERTINENT HISTORY: Non-contributory. History of remote right breast aspiration. TECHNIQUE: Digital bilateral breast ewa (3D mammographic acquisition) in the CC and MLO projections. 2-D mediolateral oblique (MLO) and craniocaudad (CC) views of both breasts were obtained. CAD: Full Field Digital Mammography with Computer Added Detection was performed. COMPARISON: Comparison is made with prior study January 07, 2023 and January 02, 2022. FINDINGS: Breast Composition: The breasts are heterogeneously dense, which may obscure small masses. There are no dominant masses or suspicious calcifications. No other significant abnormalities are identified. There has been no significant change since the prior study. BI/SCRN MAMM (CAD)W/EWA BILAT IMPRESSION: Stable bilateral screening mammogram. Yearly follow-up mammogram recommended. (A) ASSESSMENT CATEGORY: BIRADS Category 1: Negative. A letter regarding these results will be sent to the patient by the facility within 30 days. Approximately 10% of breast cancers are not detected by mammography. A normal mammogram should not delay biopsy of a clinically suspicious abnormality. [id number] Electronically Signed: Matias Alvares MD at 10:18 EST ,
== END | disposition home or self-care (01) ==
LOC: OPBI 09:04
PROVIDERS: PCP Family Medicine; Referring Provider Obstetrics & Gynecology; Visit Provider Obstetrics & Gynecology
DX: Z12.31 Encounter for screening mammogram for malignant neoplasm of breast (principal)
CPT/HCPCS: 77063; 77067

== ENCOUNTER 2024-01-21 19:34 | Emergency (ER) | payer MEDICARE, OTHER, SELFPAY ==
[2024-01-21 19:34] VITALS: BP 189/115; PULSE 80; RESP 16; TEMP 36.4; O2SAT 100; BMI 25.0
--- NOTE | 2024-01-21 19:38 | EKG12_ITS ---
Test Reason : CP Blood Pressure : */* mmHG Vent. Rate : 73 BPM Atrial Rate : 73 BPM P-R Int : 156 ms QRS Dur : 74 ms QT Int : 410 ms P-R-T Axes : 33 16 67 degrees QTcB Int : 451 ms Normal sinus rhythm Normal ECG Confirmed by SYEDA TILLMAN, WENDY ([id number]), visual effects editor MARY SERRA ([id number]) on 01/22/2024 8:23:16 AM Referred By: Confirmed By: WENDY LANDA MD
[2024-01-21 20:17] LABS: Absolute Lymphocyte Count 1.26 X10^3/uL (0.83-4.51); Absolute Neutrophil Count 3.2 X10^3/uL (2.0-7.7); Basophil# 0.02 X10^3/uL; Basophil% 0.4 % (0-1); Eosinophil# 0.06 X10^3/uL; Eosinophils% 1.2 % (0-5); Hematocrit 36.8 % (37-47); Lymphocyte # 1.26 X10^3/ul (0.83-4.51); Lymphocyte % 24.3 % (19-41); Mean Corp Hgb Conc 32.6 g/dL (32-36); Mean Corpuscular Hgb 30.3 pg (27.0-32.0); Mean Corpuscular Volume 92.9 fL (81-99); Monocyte# 0.62 X10^3/uL; NRBC Flagged by Analyzer 0 % (0-5); Neutrophil % 61.7 % (47-70); Platelet Count 176 K/mm3 (150-450); RBC Distribution Width CV 13.2 % (11.6-14.6); RBC Distribution Width SD 44.8 fl (35.1-43.9); Red Blood Count 3.96 M/mm3 (4.2-5.4); White Blood Count 5.2 K/mm3 (4.4-11.0)
[2024-01-21 20:30] VITALS: BP 172/83; PULSE 76; RESP 13; O2SAT 99
--- NOTE | 2024-01-21 20:34 | ED.VIS.CHEST ---
HPI History of Present Illness Chief Complaint: Chest Pain Informant: patient Onset/Context/Timing Onset: Today Activity at onset: sudden Timing: - (20 minutes of midsternal chest pain that is now completely resolved. She is pain-free.) Quality: Positive for Pain Current Severity: Gone Maximum Severity: Mild Worsened By: Nothing Relieved By: Nothing Associated Symptoms: Negative for Nausea, Vomiting, Diaphoresis, Dyspnea, Cough, Fever, Lightheadedness, Acid Reflux or Palpitations Narrative Narrative: 73-year-old female history of CAD with 5 coronary stents in 2007. History of hypertension currently on 3 different hypertensive meds because of had trouble controlling it the last several weeks. States she was at home the night about 6:45 PM and she had 20 minutes of midsternal chest pain. It has completely resolved now. She denies any recent exertional chest pain or exertional dyspnea. There is no radiation of her pain to her neck jaw or arms. Prior Similar Symptoms: Yes Recent Illness/Hospitalization: No CVD Risk Factors: Positive for Hypertension PE Risk Factors: Negative for Recent Travel/Surgery, Recent Immobilization, Prior DVT or PE, Cancer or OCP + Smoking + >/=35 TAD Risk Factors: Negative for Marfan's Syndrome [facility] Medical History Left ventricular hypertrophy Hyponatremia B12 deficiency Colon cancer Atherosclerosis of coronary artery of [place] heart without angina pectoris Essential (primary) hypertension Osteopenia Female climacteric state Anxiety Depression GERD (gastroesophageal reflux disease) Hyperlipemia Home Medications ?Medication ?Instructions ?Recorded ?Last Taken ?Type pantoprazole 40 mg tablet,delayed 40 mg PO DAILY 11/28/17 Unknown History release (Protonix) duloxetine 60 mg capsule,delayed 60 mg PO DAILY 09/18/18 Unknown History release calcium 500 mg-vitamin D3 1,000 1 tab PO DAILY 07/28/19 Unknown History unit-vitamin K 40 mcg chewable tablet (Citracal-D3 Soft Chew) cholecalciferol (vitamin D3) 10 10 mcg PO DAILY 03/25/20 Unknown History mcg (400 unit) tablet denosumab 60 mg/mL subcutaneous 60 mg subcut [id number] #1 mL 03/06/21 Unknown Rx syringe (Prolia) mecobalamin (vitamin B12) 2,500 See Rx Instructions PO .COMPLEX 05/05/23 Unknown History mcg chewable tablet rosuvastatin 10 mg tablet See Rx Instructions .Route 02/18/23 Unknown Rx .COMPLEX #90 tabs carvedilol 25 mg tablet 25 mg PO BID #180 tabs 10/02/23 Unknown Rx losartan 100 mg tablet 100 mg PO DAILY #90 tabs 10/16/23 Unknown Rx hydralazine 25 mg tablet 25 mg PO BID #60 tabs 01/15/24 Unknown Rx Allergy/AdvReac Type Severity Reaction Status Date / Time ciprofloxacin (From Cipro) Allergy Mild Nausea Verified 01/21/24 19:34 diltiazem (From Cardizem) Allergy Mild lower Verified 01/21/24 19:34 extremity edema levofloxacin (From Levaquin) Allergy Mild Tendonitis Verified 01/21/24 19:34 erythromycin base Allergy Unknown Verified 01/21/24 19:34 (Erythromycin Base) amlodipine AdvReac Intermediate Swelling Verified 01/21/24 19:34 hydralazine AdvReac Intermediate frequent Verified 01/21/24 19:34 urination, BP up instead of down lisinopril AdvReac Mild Cough Verified 01/21/24 19:34 moxifloxacin (From Avelox) AdvReac Mild Nausea Verified 01/21/24 19:34 azithromycin AdvReac Upset Verified 01/21/24 19:34 Stomach Family History Father Hyperlipidemia Mother Hypertension Cancer Brother Hypertension Surgical History History of colon resection (01/2020) History of back surgery History of lumbar laminectomy (03/2018) History of left heart catheterization (06/17/09) Hx of appendectomy History of coronary artery stent placement (05/19/07) Social History Smoking Status: Former smoker alcohol intake: current alcohol intake frequency: holidays/special occasions only details: social substance use type: does not use caffeine: No what type of physical activity do you participate in: none seatbelt use: always do you feel safe at home: Yes additional social history: [employer] Patient is retired ROS ROS ED ROS Narrative Chest pain for 20 minutes now resolved. No recent illness. Constitutional Constitutional ED: Denies chills or fever(s) Eyes Eyes: Reports none ENT ENT ED: Denies ear pain Cardiovascular Cardiovascular: Reports as per HPI and chest pain; Denies palpitations or racing heartbeat Respiratory/Chest Respiratory/Chest: Denies cough, dyspnea or dyspnea on exertion Gastrointestinal Gastrointestinal: Denies abdominal pain Genitourinary Genitourinary ED: Denies dysuria or hematuria Musculoskeletal Musculoskeletal: Denies arthralgias Integumentary Denies abscess Neurologic Neurologic: Denies headache(s) Psychiatric Psychiatric: Denies anxiety or depression Endocrine Endocrinology: Denies cold intolerance Hematologic/Lymphatic Hematologic/Lymphatic: Denies easy bleeding Allergic/Immunologic Allergic/Immunologic ED: Denies mouth swelling, tongue swelling or urticaria EXAM Physical Exam Narrative Exam Narrative: Well-appearing 73-year-old female. Vital signs stable initial blood pressure elevated 189/115. Pulse ox 5% on room air no signs hypoxia. H EENT exam unremarkable. Neck nontender. Lungs clear to auscultation bilaterally. Heart regular rate and rhythm no murmur. Rate about 80. Chest wall and ribs nontender. No reproducible chest wall pain. Abdomen soft nontender. Normal bowel sounds no peritoneal signs. Back nontender. Moving all 4 extremities. 5 out of 5 master chef strength bilaterally. Dorsi plantarflexion intact. Calves are nontender without edema or cords. Equal symmetrical radial pulses. She is awake and alert. No focal motor deficits. Const Vital Signs: 01/21/24 19:34 01/21/24 19:58 01/21/24 20:03 Temperature 97.5 F L Temperature Source Oral Pulse Rate 80 Respiratory Rate 16 Respiratory Effort Normal Non-Labored Blood Pressure 189/115 H Blood Pressure Mean 139 Pulse Ox 100 Oxygen Delivery Method Room Air Room Air 01/21/24 20:30 01/21/24 21:00 01/21/24 22:00 Temperature Temperature Source Pulse Rate 76 76 77 Respiratory Rate 13 18 17 Respiratory Effort Blood Pressure 172/83 H 185/87 H 202/99 H Blood Pressure Mean 109 115 129 Pulse Ox 99 99 98 Oxygen Delivery Method Positive well nourished and well developed; Negative for cachectic, contractures or unkempt General Appearance ED: well developed and NAD; Negative for unkempt, cachectic, contractures or pallor Nutritional Appearance: Negative for cachectic HEENT Reports moist mucous membranes normocephalic and atraumatic; Negative for trauma or tenderness Eyes PERRL and EOMs intact bilaterally General Eye ED: Negative for pale conjunctiva Neck no lymphadenopathy, supple and no JVD General: Negative for tenderness Chest Wall inspection of chest normal and palpation of chest normal Chest: Negative for tenderness Resp normal respiratory effort and clear to auscultation bilaterally Effort and Inspection: Negative for respiratory distress Auscultation: Negative for rales, rhonchi, wheezes or diminished lung sounds Cardio regular rate, regular rhythm, S1 normal heart sound, S2 normal heart sound and no murmurs Peripheral Pulses: pulses 2+ throughout GI normal to inspection, nondistended, normoactive bowel sounds, soft to palpation, non-tender, non-distended and no masses Back/Spine no CVA tenderness and no thoracic nor lumbar tenderness General Back: Negative for CVA tenderness Cervical Spine: Negative for cervical spine tenderness Extremity normal to inspection General Extremety ED: Negative for edema, pulses abnormal or tenderness General Extremity: Negative for edema or pulses abnormal Neuro oriented x3 and CN's II-XII intact bilaterally Sensorium / Orientation: awake, alert, oriented to person, oriented to place and oriented to time; Negative for confused, lethargic or stuporous Motor Exam: strength 5/5 throughout Psych mental status grossly normal Appearance: Negative for unkempt Attitude: No agitated Mood & Affect: Negative for depressed, anxious or tearful Skin no rashes or lesions noted and no wounds General Skin Exam: Negative for jaundice or pallor Rashes: No rashes noted Trauma: Negative for abrasion or laceration Heart Score History: Moderately Suspicious ECG: Normal Age: >/= 65 years Risk Factors: >/= 3 Risk Factors or History of CAD Score: 5 MDM MDM MDM Narrative Medical decision making narrative: 73-year-old female hypertension and CAD with 20 minutes of chest pain tonight now resolved currently pain-free. Repeat exam patient doing well at 9:45 PM. Pain-free. Awaiting a 2-hour troponin. Repeat exam at 10:58 PM patient doing well. Pain-free. We went over test results. She is currently discharged home with outpatient follow-up with Dr. King. She was given a dose of carvedilol here to try to help with her blood pressure. History & Record Review Discussion w/independent historian: Patient Additional record(s) reviewed:: Prior inpatient record Lab Data Attestation: I reviewed the patient's lab results. Lab results narrative: CBC normal. White count of 5. H&H 12 and 36. Platelets 176. Chemistries sodium 135. Gap 5. Normal BUN and creatinine of sixteen 0.8. Glucose 127. Initial troponin 5. 2?hour troponin 4. Labs: Laboratory Results - last 24 hr 01/21/24 01/21/24 20:05 22:00 WBC 5.2 RBC 3.96 L Hgb 12.0 Hct 36.8 L MCV 92.9 MCH 30.3 MCHC 32.6 RDW Std Deviation 44.8 H RDW Coeff of Sam 13.2 Plt Count 176 MPV 11.0 Immature Gran % (Auto) 0.400 Neut % (Auto) 61.7 Lymph % (Auto) 24.3 Greene % (Auto) 12.0 H Eos % (Auto) 1.2 Baso % (Auto) 0.4 Absolute Neuts (auto) 3.2 Absolute Lymphs (auto) 1.26 Nucleated RBC % 0 Sodium 135 L Potassium 3.9 Chloride 102 Carbon Dioxide 28.0 Anion Gap 5 BUN 16 Creatinine 0.89 Estim Creat Clear Calc 51.89 Est GFR (MDRD) Af Amer 80 Est GFR (MDRD) Non-Af 66 BUN/Creatinine Ratio 18.0 Glucose 127 H Calcium 8.2 L Troponin I High Sens 5 4 Radiography Chest X-Ray - ED: 1 View, Read by ED Physician, Read by Radiologist, Normal, Heart, Lungs, Mediastinum, Bony Structures, No Acute Disease and Chronic Changes Diagnostic Testing: Clinical Impression(s) from Imaging Studies Chest X-Ray 01/21/24 20:45 IMPRESSION: No acute findings in the chest. Electronically Signed: Robert Herdeia DO at 20:58 EST , Chest x-ray, portable, single view interpreted both by myself and the radiologist shows no acute abnormality. Normal cardiac silhouette. Normal mediastinum. Normal aortic knob. Normal lung lane. Rhythm Strip Rhythm Strip: Sinus Rhythm Rate: 73 Ectopy: None EKG Initial EKG: Attestation: I personally reviewed and interpreted this EKG as follows: Interpretation: Sinus Rhythm and No Acute Injury Pattern Comments: Normal sinus rhythm rate of 73 no acute signs of CT or ischemia. Discharge Plan Triage Chief Complaint: Chest Pain ED Provider: Kwabena Chapman Dx/Rx/DC Orders Clinical Impression: Chest pain, Hypertension, History of CAD (coronary artery disease) Instructions: ED Chest Pain, Uncertain Cause, ED Hypertension, Established Prescriptions: No Action pantoprazole [Protonix] 40 mg tablet,delayed release (DR/EC) 40 mg PO DAILY calcium-vitamin D3-vitamin K [Citracal-D3 Soft Chew] 500 mg-1,000 unit-40 mcg tablet,chewable 1 tab PO DAILY Prolia 60 mg/mL syringe 60 mg subcut [id number] Qty: 1 1RF mecobalamin (vitamin B12) 2,500 mcg tablet,chewable See Rx Instructions PO .COMPLEX Rx Instructions: orally EOD; duloxetine 60 mg capsule,delayed release(DR/EC) 60 mg PO DAILY cholecalciferol (vitamin D3) 10 MCG tablet 10 mcg PO DAILY rosuvastatin 10 mg tablet See Rx Instructions .ROUTE .COMPLEX Qty: 90 3RF Dose Instruction: take 1 tablet by mouth once daily Rx Instructions: take 1 tablet by mouth once daily carvedilol 25 mg tablet 25 mg PO BID Qty: 180 3RF losartan 100 mg tablet 100 mg PO DAILY Qty: 90 3RF hydralazine 25 mg tablet 25 mg PO BID Qty: 60 11RF Primary Care Provider: Etienne Donahue Referrals: Jeb Turner MD [Med Staff - Active Staff] - As soon as possible Etienne Donahue MD [Primary Care Provider] - As soon as possible Activity Restrictions/Additional Instructions: Continue your current medications. Call and follow-up with Dr. Turner's office tomorrow they need to your blood pressure under better control. Return if feeling worse. Print Language: Greek Disposition Disposition: Home, Self Care
[2024-01-21 20:35] LABS: Anion Gap 5 (5-15); BUN 16 mg/dL (7-18); Calcium,Total 8.2 mg/dL (8.5-10.1); Chloride 102 mmol/L (98-107); Creatinine, Serum 0.89 mg/dL (0.55-1.02); EST Glomerular Filtration Rate 66 mL/min (>60); Est Glom Filt Rate - Afr Amer 80 mL/min (>60); Estimated Creatinine Clearance 51.89 ml/min; Glucose 127 mg/dL (74-106); Potassium 3.9 mmol/L (3.5-5.1); Sodium Level 135 mmol/L (136-145); Troponin-I HS (w/2H Reflex) 5 pg/mL (3.0-54.0)
--- NOTE | 2024-01-21 20:45 | RAD_ITS ---
EXAM: XR CHEST, 1 VIEW CLINICAL INDICATION: chest pain TECHNIQUE: Frontal view of the chest. COMPARISON: 05/22/2023 FINDINGS: LUNGS AND PLEURAL SPACES: No significant abnormality. No consolidation or edema. No pneumothorax. No effusion. HEART: No significant abnormality. Cardiac silhouette not enlarged. MEDIASTINUM: Central airways and mediastinal contour are unremarkable. BONES/JOINTS: Mild degenerative changes of the spine and shoulders. No acute fracture. SOFT TISSUES: No significant abnormality. VASCULATURE: Atherosclerosis. RAD/Chest 1 View (Portable) IMPRESSION: No acute findings in the chest. Electronically Signed: Robert Heredia DO at 20:58 EST ,
[2024-01-21 21:00] VITALS: BP 185/87; PULSE 76; RESP 18; O2SAT 99
[2024-01-21 22:00] VITALS: BP 202/99; PULSE 77; RESP 17; O2SAT 98
[2024-01-21 22:15] LABS: Reflex Troponin-HS? (from REC) Y
[2024-01-21 22:41] LABS: Troponin-I HS 4 pg/mL (3.0-54.0)
[2024-01-21] MEDS: Carvedilol 25 MG Tablet PO (22:44)
[2024-01-21 23:00] VITALS: BP 187/107; PULSE 78; RESP 16; TEMP 36.6; O2SAT 97
--- NOTE | 2024-01-21 23:13 | ED.RN ---
Pt's blood pressure remains high, aware. Pt has been consulting with cardiology in attempts to lower blood pressure. Pt states she monitors pressures at home, will call cardiology in the morning.
== END 2024-01-21 23:15 | disposition home or self-care (01) ==
PROVIDERS: Emergency Provider Emergency Medicine; PCP Family Medicine; Visit Provider Emergency Medicine
DX: R07.9 Chest pain, unspecified (principal); I10 Essential (primary) hypertension; E78.5 Hyperlipidemia, unspecified; E53.8 Deficiency of other specified B group vitamins; F32.A Depression, unspecified; F41.9 Anxiety disorder, unspecified; I25.10 Atherosclerotic heart disease of native coronary artery without angina pectoris; K21.9 Gastro-esophageal reflux disease without esophagitis; M85.80 Other specified disorders of bone density and structure, unspecified site; Z95.5 Presence of coronary angioplasty implant and graft; Z88.1 Allergy status to other antibiotic agents; Z90.49 Acquired absence of other specified parts of digestive tract; Z79.899 Other long term (current) drug therapy; Z85.038 Personal history of other malignant neoplasm of large intestine; Z87.891 Personal history of nicotine dependence
CPT/HCPCS: 71045; 80048; 84484; 85025; 93005; 99284; A4216

== ENCOUNTER → 2024-02-13 | Outpatient (CLI) | payer MEDICARE, OTHER, SELFPAY ==
[2024-02-13 11:57] LABS: ALB/GLOB Ratio 1.2 RATIO (0.9-2.4); AST(SGOT) 37 U/L (15-37); Alanine Aminotransfer ALT/SGPT 19 U/L (13-56); Albumin, Serum 3.6 g/dL (3.2-5.0); Alkaline Phosphatase 61 U/L (45-117); Anion Gap 5 (5-15); BUN 18 mg/dL (7-18); BUN/Creat Ratio 21.2 RATIO (10-20); Calcium,Total 9.4 mg/dL (8.5-10.1); Chloride 102 mmol/L (98-107); Cholesterol 215 mg/dL (200); Creatinine, Serum 0.85 mg/dL (0.55-1.02); EST Glomerular Filtration Rate 69 mL/min (>60); Est Glom Filt Rate - Afr Amer 84 mL/min (>60); Globulin 3.1 g/dL (2.2-4.2); Glucose 102 mg/dL (74-106); High Density Lipoprotein 134 mg/dL; Potassium 4.9 mmol/L (3.5-5.1); Protein, Total 6.7 g/dL (6.4-8.2); Sodium Level 134 mmol/L (136-145); Triglycerides 65 mg/dL; Very Low Density Lipoprotein 13 mg/dL (5-40)
== END | disposition home or self-care (01) ==
LOC: LAB 10:59
PROVIDERS: Physician Assistant Medical; PCP Family Medicine; Referring Provider Internal Medicine Cardiovascular Disease; Visit Provider Internal Medicine Cardiovascular Disease
DX: I25.10 Atherosclerotic heart disease of native coronary artery without angina pectoris (principal); E78.5 Hyperlipidemia, unspecified; Z51.81 Encounter for therapeutic drug level monitoring; Z79.899 Other long term (current) drug therapy; E87.1 Hypo-osmolality and hyponatremia
CPT/HCPCS: 36415; 80053; 80061

== ENCOUNTER → 2024-02-28 | Outpatient (CLI) | payer MEDICARE, OTHER, SELFPAY ==
--- NOTE | 2024-02-28 15:16 | BD_ITS ---
STUDY: DUAL ENERGY X-RAY ABSORPTIOMETRY / DXA REASON FOR EXAM: Female, 73 years old. 627.8Menopausal postmenopausalBONE DENSITY REASON FOR EXAM TECHNIQUE: Bone Mineral Density (BMD) measurements of lumbar spine and bilateral hips were obtained. COMPARISON: 02/18/2020 FINDINGS: Lumbar Spine (L1-L4): g/cm2 (0.878) / T-score (-0.9) / Z-score (1.3) Findings are suggestive of normal bone density with a low fracture risk. Left Femur Total: g/cm2 (0.703) / T-score (-2.0) / Z-score (-0.2) Left Femoral Neck: g/cm2 (0.596) / T-score (-2.3) / Z-score (-0.2) Right Femur Total: g/cm2 (0.726) / T-score (-1.8) / Z-score (0.0) Right Femoral Neck: g/cm2 (0.69) / T-score (-2.0) / Z-score (0.1) BD/Dexa Bone Density Study IMPRESSION: The patient is considered osteopenic as outlined below according to World Joni Organization (WHO) criteria with a moderate fracture risk. There has been improvement of bone density since the previous examination. Reference Information: The T-score is the number of standard deviations above or below the standard which is normal for young adults at their peak bone mineral density. The World Health Organization (WHO) interprets the T-scores as follows: Above -1 Normal bone density Between -1 and -2.5 Osteopenia Equal to / or below -2.5 Osteoporosis As a practical clinical guideline, osteopenia may be graded as follows: Mild -1 through -1.5 Moderate -1.6 through -2.0 Severe -2.1 through -2.4 The Z-score is the number of standard deviations above or below age-matched controls. A Z-score of less than -1.5 would be considered abnormal. References: 1. NIH Osteoporosis and Related Bone Diseases www osteo.org 2. International Society for Clinical Densitometry www iscd.org 3. National Osteoporosis Foundation www nof.org Electronically Signed: Sharath Jean Baptiste MD at 13:19 EST ,
== END | disposition home or self-care (01) ==
LOC: OPBD 14:33
PROVIDERS: PCP Family Medicine; Referring Provider Family Medicine; Visit Provider Family Medicine
DX: M81.0 Age-related osteoporosis without current pathological fracture (principal)
CPT/HCPCS: 77080

== ENCOUNTER → 2024-03-23 | Outpatient (CLI) | payer MEDICARE, OTHER, SELFPAY ==
--- NOTE | 2024-03-23 09:50 | ECHOD_ITS ---
Reason For Study: Murmur Procedure This was a 2D Doppler, Color Flow transthoracic echocardiogram. Exam performed in department. Left Ventricle Normal LV size. Left ventricular systolic function is normal. The left ventricular ejection fraction is 60 %. No regional wall motion abnormalities noted. Right Ventricle Normal RV size. Normal systolic function. Atria The left atrium is mildly enlarged. Normal right atrium. Mitral Valve There is mild to moderate mitral annular calcification. Mild (1+) eccentric mitral valve insufficiency. Tricuspid Valve Normal tricuspid valve. Mild (1+) tricuspid valve insufficiency. Pulmonary artery systolic pressure is 36 mmHg. Aortic Valve Trisinus/trileaflet aortic valve. Pulmonic Valve Normal pulmonic valve. Great Vessels Normal aortic root. The pulmonary artery is normal size. Inferior vena cava collapse with respiration. Pericardium/Pleural No pericardial effusion. MMode/2D Measurements & Calculations LVIDd: 4.0 cm IVSd: 1.4 cm Ao root diam: 3.5 cm LVIDs: 2.8 cm LVPWd: 1.1 cm RVDd: 3.8 cm FS: 31.1 % LAV(MOD-bp): 80.4 ml LVAd ap4: 23.3 cm2 SV(MOD-sp4): 41.6 ml LAV(MOD-bp) Indexed: 47.8 ml/m2 LVLd ap4: 7.1 cm SI(MOD-sp4): 24.7 ml/m2 LAV(MOD-sp2): 78.9 ml EDV(MOD-sp4): 60.3 ml LAV(MOD-sp4): 72.7 ml EDV(sp4-el): 64.4 ml LVAs ap4: 11.6 cm2 LVLs ap4: 5.9 cm ESV(MOD-sp4): 18.7 ml ESV(sp4-el): 19.4 ml EF(MOD-sp4): 68.9 % EF(sp4-el): 69.9 % SV(sp4-el): 45.1 ml LA A4 area: 21.4 cm2 LA dimension(2D): 4.0 cm RA A4 area: 14.4 cm2 TAPSE: 1.9 cm Time Measurements MV dec time: 0.30 sec Doppler Measurements & Calculations MV E max michael: 141.1 cm/sec Lat Peak E' Michael: 6.0 cm/sec Med Peak E' Michael: 7.3 cm/sec MV A max michael: 151.2 cm/sec E/E' lat: 23.7 E/E' med: 19.5 MV E/A: 0.93 MV V2 max: 172.1 cm/sec MV P1/2t max michael: 147.3 cm/sec Ao V2 max: 160.9 cm/sec MV max P.9 mmHg MV P1/2t: 92.5 msec Ao max P.4 mmHg MV V2 mean: 95.7 cm/sec Ao V2 mean: 126.7 cm/sec MV mean P.3 mmHg MV dec slope: 466.0 cm/sec2 Ao mean P.1 mmHg MV V2 VTI: 45.0 cm MVA(P1/2t): 2.4 cm2 Ao V2 VTI: 46.1 cm AV (velocity ratio): 0.85 LV V1 max: 147.3 cm/sec MR max michael: 482.1 cm/sec PA V2 max: 90.8 cm/sec LV V1 max P.7 mmHg MR max P.0 mmHg LV V1 mean P.1 mmHg LV V1 mean: 106.6 cm/sec LV V1 VTI: 39.3 cm TR max michael: 284.9 cm/sec TR max P.5 mmHg ECHO/Echo Complete Interpretation Summary Normal LV size. Left ventricular systolic function is normal. The left ventricular ejection fraction is 60 %. There is mild to moderate mitral annular calcification. Mild (1+) eccentric mitral valve insufficiency. Pulmonary artery systolic pressure is 36 mmHg. Ordering Physician: Malaika Hogan Referring Physician: Malaika Hogan Performed By: Uriah Lea RCS
--- NOTE | 2024-03-23 09:50 | CDU_ITS ---
Reason For Study: Bruit Rt. Velocities/BP Lt. Velocities/BP Prox CCA 87.2/8.8 cm/sec. Prox CCA 101.6/27 cm/sec. Mid CCA 66.4/12.6 cm/sec. Mid CCA 88.5/20.4 cm/sec. Dist CCA 62.6/10.7 cm/sec. Dist CCA 95.1/18.2 cm/sec. Prox ICA 349.6/108.2 cm/sec. Prox ICA 92.9/20.4 cm/sec. Mid ICA 114.8/18.9 cm/sec. Mid ICA 63/16.8 cm/sec. Dist ICA 54.4/23.7 cm/sec. Dist ICA 86.1/28.9 cm/sec. Rt. ICA/CCA = 5.27. Lt. ICA/CCA = 1.05. Prox ECA 94.9/10.2 cm/sec. Prox ECA 125.8/16 cm/sec. Rt. Vert. 59.8/13.5 cm/sec. Lt. Vert. 46.5/10.7 cm/sec. Right Extracranial There is homogeneous, smooth atherosclerotic plaque noted in the right common carotid artery. There is heterogeneous, irregular atherosclerotic plaque noted in the right internal carotid artery. There is homogeneous, smooth atherosclerotic plaque noted in the right external carotid artery. Antegrade flow is noted in the right vertebral artery. Left Extracranial There is intimal thickening but no significant atherosclerotic plaque noted in the left common carotid artery. There is intimal thickening but no significant atherosclerotic plaque noted in the left internal carotid artery. There is intimal thickening but no significant atherosclerotic plaque noted in the left external carotid artery. Antegrade flow is noted in the left vertebral artery. Procedure Carotid Duplex [id number]. This is a Carotid Duplex examination using B-mode, color flow and specral Doppler. Preliminary report given to Malaika ALVARES. Exam performed in department. VL/Carotid Duplex Ultrasound Interpretation Summary Severe (>70%) stenosis right extracranial internal carotid. Mild (<50%) stenosis left extracranial internal carotid. Patent and antegrade vertebrals bilaterally. Ordering Physician: Malaika Hogan Referring Physician: Etienne Donahue MD Performed By: Thao Rucker RVT
== END | disposition home or self-care (01) ==
LOC: CVS 09:47
PROVIDERS: PCP Family Medicine; Referring Provider Physician Assistant Medical; Visit Provider Physician Assistant Medical
DX: R01.1 Cardiac murmur, unspecified (principal); R09.89 Other specified symptoms and signs involving the circulatory and respiratory systems
CPT/HCPCS: 93306; 93880

== ENCOUNTER → 2024-03-25 | Outpatient (CLI) | payer MEDICARE, OTHER, SELFPAY ==
--- NOTE | 2024-03-25 14:41 | RAD_ITS ---
STUDY: X-RAY - LEFT ANKLE REASON FOR EXAM: Female, 74 years old. Swelling pain. L ankle. TECHNIQUE: 3 views of the left ankle. COMPARISON: Left ankle radiographs dated 06/02/2013. FINDINGS: Normal visualized distal tibia and fibula. Normal medial and lateral malleoli. Normal tibiotalar articulation and ankle mortise. Intact visualized talus and calcaneus. There is a plantar calcaneal spur. The visualized subtalar, talonavicular, calcaneocuboid and tarsal articulations are normal. There is no demonstrated fracture. There is soft tissue swelling around the ankle, most pronounced medially. RAD/Ankle min 3 Views IMPRESSION: Plantar calcaneal spur. Soft tissue swelling around the ankle, most prominent medially. No demonstrated fracture. Electronically Signed: Zachary Topete MD at 9:14 EST ,
== END | disposition home or self-care (01) ==
LOC: MTRAD 14:41
PROVIDERS: PCP Family Medicine; Referring Provider Family Medicine; Visit Provider Family Medicine
DX: M25.572 Pain in left ankle and joints of left foot (principal)
CPT/HCPCS: 73610

== ENCOUNTER 2024-04-10 08:21 | Day surgery (SDC) | payer MEDICARE, OTHER, SELFPAY ==
--- NOTE | 2024-04-08 10:10 | RAD_ITS ---
EXAM: XR Chest, 2 Views CLINICAL INDICATION: TECHNIQUE: Frontal and lateral views of the chest. COMPARISON: No relevant prior studies available. FINDINGS: LUNGS AND PLEURAL SPACES: Unremarkable. No consolidation. No pneumothorax. HEART: Unremarkable. No cardiomegaly. MEDIASTINUM: Unremarkable. Normal mediastinal contour. BONES/JOINTS: Unremarkable. No acute fracture. RAD/Chest PA and Lateral IMPRESSION: No acute cardiopulmonary process. Reading Location: [facility]
[2024-04-08 10:46] LABS: Absolute Lymphocyte Count 0.85 X10^3/uL (0.83-4.51); Absolute Neutrophil Count 10.1 X10^3/uL (2.0-7.7); Basophil# 0.03 X10^3/uL; Basophil% 0.2 % (0-1); Hemoglobin 13.8 g/dL (12.0-15.0); Lymphocyte # 0.85 X10^3/ul (0.83-4.51); Lymphocyte % 6.6 % (19-41); Mean Corp Hgb Conc 33.7 g/dL (32-36); Mean Corpuscular Hgb 30.4 pg (27.0-32.0); Mean Corpuscular Volume 90.3 fL (81-99); Monocyte# 1.75 X10^3/uL; Monocyte% 13.5 % (0-10); NRBC Flagged by Analyzer 0 % (0-5); Neutrophil # 10.12 X10^3/uL (2.7-7.7); POSITIVE DIFFERENTIAL YES; Platelet Count 320 K/mm3 (150-450); RBC Distribution Width CV 13.7 % (11.6-14.6); RBC Distribution Width SD 45.6 fl (35.1-43.9); Red Blood Count 4.54 M/mm3 (4.2-5.4)
[2024-04-08 10:50] LABS: Differential Indicated SCAN CRITERIA MET
[2024-04-08 11:17] LABS: Reactive Lymphocyte 2+
[2024-04-08 11:24] LABS: Anion Gap 7 (5-15); BUN 30 mg/dL (7-18); BUN/Creat Ratio 23.6 RATIO (10-20); Calcium,Total 9.4 mg/dL (8.5-10.1); Chloride 98 mmol/L (98-107); Creatinine, Serum 1.27 mg/dL (0.55-1.02); EST Glomerular Filtration Rate 44 mL/min (>60); Est Glom Filt Rate - Afr Amer 53 mL/min (>60); Glucose 106 mg/dL (74-106); Magnesium 2.3 mg/dL (1.6-2.6); Potassium 4.3 mmol/L (3.5-5.1); Sodium Level 129 mmol/L (136-145); Thyroid Stim Hormone (TSH) 0.995 uIU/mL (0.358-3.740)
[2024-04-09 09:50] VITALS: BMI 24.0
--- NOTE | 2024-04-09 14:21 | PCM.HP.BLA ---
History and Physical Date of Admission: 04/10/24 KLAUS MANTILLA, is a 73 F with a history of coronary artery disease status post angioplasty and stenting of the right coronary artery and posterior descending artery in 2007. She also has a history of hypertension and hyperlipidemia. She underwent a pharmacologic myocardial perfusion stress test in August 2022 which demonstrated no evidence of ischemia. Patient was in the emergency room earlier this month for elevated blood pressure readings. Medications have been adjusted. She had called our office this week with concerns of being increased short of breath. She was brought in for an EKG. EKG did demonstrate new findings of anterior T wave changes. She states that the shortness of breath is a new finding for her. [facility]LY [facility] Medical History (Updated 03/02/24 @ 09:51 by Malaika ALVARES, PA) Right carotid bruit Left ventricular hypertrophy Hyponatremia B12 deficiency Colon cancer Atherosclerosis of coronary artery of [place] heart without angina pectoris Essential (primary) hypertension Osteopenia Female climacteric state Anxiety Depression GERD (gastroesophageal reflux disease) Hyperlipemia Surgical History History of colon resection (01/2020) History of back surgery History of lumbar laminectomy (03/2018) History of left heart catheterization (06/17/09) Hx of appendectomy History of coronary artery stent placement (05/19/07) Family History Father Hyperlipidemia Mother Hypertension Cancer Brother Hypertension Social History Smoking Status: Former smoker alcohol intake: current alcohol intake frequency: holidays/special occasions only details: social substance use type: does not use caffeine: No what type of physical activity do you participate in: none seatbelt use: always do you feel safe at home: Yes 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 Const Appearance: cooperative, healthy appearing, comfortable, no acute distress and well developed Orientation: alert, awake and oriented x3 Head Head: normal to inspection Ears: hearing grossly normal bilaterally Nose: external nose normal Face and Sinus: face symmetric Mouth: oral mucosae normal, lip normal and moist mucous membranes Eyes General: appearance normal, both eyes and all related structures Eyelids: eyelids normal Conjunctivae: conjunctivae normal Pupils: PERRL EOM: EOM intact bilaterally Neck Neck: normal visual inspection and trachea midline; Negative no JVD Carotids: Negative bruit Chest Chest inspection: normal inspection of the chest Auscultation: Bilateral: Clear to Auscultation Cardio Palpation: normal PMI Rate: regular rate Rhythm: regular rhythm Heart sounds: S1 normal, S2 normal and murmur; Negative rub or gallop Murmur: Grade 2/6 and holosystolic GI GI: soft, no hepatosplenomegaly and bowel sounds present Neuro General: patient alert, patient awake, patient oriented x3 and CN's II-XI intact bilaterally Extremities Pulses: Normal: Right Posterior Tibial Pulse, Left Posterior Tibial Pulse, Right Radial Pulse and Left Radial Pulse Lower Extremity Edema: None: Bilateral Psych Psychological: normal affect Supplemental Info Supplemental Information ECHOCARDIOGRAM 09/30/2019 Interpretation Summary Normal LV size. Left ventricular systolic function is normal. The estimated ejection fraction is 65 %. Moderate concentric left ventricular hypertrophy. Stage 1 diastolic dysfunction. Pharmacologic myocardial perfusion stress test 08/23/2022: Conclusion: Normal pharmacologic myocardial perfusion stress test. Preserved ejection fraction. Resting hypertension. RENAL ARTERY DUPLEX 06/06/2021 Interpretation Summary Maximal aortic diameter proximally at 1.36 x 1.38 cm in diameter with normal aortic flow velocity. Less than 60% stenosis right renal artery Borderline right renal length at 8.86 cm Less than 60% stenosis left renal artery. Maintained left renal length 9.36 cm Assessment & Plan Assessment/Plan (1) Anginal equivalent: (2) Abnormal EKG: (3) History of coronary artery stent placement: (4) Essential (primary) hypertension: (5) Hyperlipemia: PLAN: Plan Patient will proceed with a diagnostic heart catheterization. Follow-up will be based upon findings.
[2024-04-09 14:41] LABS: Pathologist Review Reviewed
--- NOTE | 2024-04-10 11:10 | CL.D_ITS ---
Patient Name: KLAUS MANTILLA Study Date: 04/10/2024 Performing: Jeb Turner MD Ht: 64 inches 162.56 cm : 1950 Wt: 139.99 lbs 63.5 kg Age: 74 Gender: female BSA: 1.68 PROCEDURE(S) PERFORMED [id number])LHC/COR/LV CLINICAL PROFILE AND INDICATIONS Indications: Suspected CAD Heart Failure: None Stress/Imaging Stress/Image Study Performed: No CAD Presentations: Symptom unlikely to be ischemic. CONCLUSIONS Coronary disease with previously stented vessel in the LAD, ramus, right coronary artery which are patent with moderate in-stent stenosis in the right coronary artery especially but out of proportion wall motion abnormality noted in the apex. Above is likely more consistent with Takotsubo cardiomyopathy RECOMMENDATIONS Medical therapy DESCRIPTION OF PROCEDURE The patient arrived to the procedure lab. The risks and benefits of the procedure as well as a full description of our services here and current unavailability of surgical backup were fully explained to the patient and/or their significant other prior to the catheterization. The Timeout was completed, verifying the correct patient and procedure. The patient's procedural site was prepped and draped in the usual fashion. Local anesthetic was given subcutaneously to right radial region with Lidocaine 2%. Using a modified Seldinger technique, arterial access was obtained via the right radial artery, a 6Fr sheath was inserted. Right Coronary Artery selective angiography was then performed in multiple views using a 5 Fr. 4.0 [place] catheter. Left Coronary Artery selective angiography was performed in multiple views using a 5 Fr. 4.0 [place] catheter. Left Ventriculography was performed in URIOSTEGUI projection using a 5 Fr. [place] catheter. LV to AO pullback pressures were then recorded.The arterial sheath was pulled and a TR Band was applied for hemostasis CORONARY ANGIOGRAPHY DOMINANCE: Right Dominant LEFT HEART ASSESSMENT Left Ventricular Ejection Fraction: by LV Gram 55 % Apical Hypokinesis - Severe Consistent with Takotsubo cardiomyopathy. LEFT MAIN: Mild calcification, Non-obstructive LEFT ANTERIOR DESCENDING ARTERY: Previously placed stent in the left anterior descending artery with mild 30% in-stent stenosis. The vessel then gives off a diagonal branch and that is approximately 50% stenosis and then the vessel continues with calcification with no high-grade stenosis. CIRCUMFLEX ARTERY: Mild luminal irregularities less than 30% RAMUS: Previously placed stent in the ramus intermedius with mild to 30% in-stent stenosis. RIGHT CORONARY ARTERY: Previously stented vessel with 50 to 60% in-stent stenosis and calcification of vessel in the mid to distal segment with 40 to 50% stenosis and distally with 60% stenosis prior to the bifurcation the posterior descending artery and posterolateral vessel. COMPLICATIONS No Complications PROCEDURE MEDICATIONS Versed 1 mg IV Fentanyl 50 mcg IV Versed 1 mg IV Oxygen: 2 L/min via nasal cannula Heparin given IA 04/10/2024 10:01:39 Verapamil 2.5mg, Ntg 100mcgs, 3000 units of Heparin given IA 04/10/2024 10:01:39 SUMMARY OF HEMODYNAMIC DATA Time AIR REST ECG 08:38:32 AO 120/71 (91) SA 10:08:28 LV 118/3, 11 10:14:39 LV 125/6, 13 10:14:47 LV 114/5, 16 10:15:24 LV 88/5, 14 10:15:33 LVp 85/2, 14 10:15:43 AOp 110/4 (69) 10:15:50 Signed By Jeb Turner MD On 04/10/2024 11:09:54 Jeb Turner MD
== END 2024-04-10 11:50 | disposition home or self-care (01) ==
PROVIDERS: Physician Assistant Medical; PCP Family Medicine; Referring Provider Internal Medicine Cardiovascular Disease; Visit Provider Internal Medicine Cardiovascular Disease
DX: T82.855A Stenosis of coronary artery stent, initial encounter (principal); I25.118 Atherosclerotic heart disease of native coronary artery with other forms of angina pectoris; R94.31 Abnormal electrocardiogram [ECG] [EKG]; I10 Essential (primary) hypertension; E78.5 Hyperlipidemia, unspecified; Z87.891 Personal history of nicotine dependence
CPT/HCPCS: 36415; 71046; 80048; 83735; 84443; 85025; 93458; 99152; 99153; Q9967; C1769; C1894

== ENCOUNTER → 2024-05-15 | Outpatient (CLI) | payer MEDICARE, OTHER, SELFPAY ==
--- NOTE | 2024-05-15 15:50 | CT_ITS ---
PROCEDURE: CTA HEAD AND NECK W/ CONTRAST REASON FOR EXAM: SEVERE R ICA STENOSIS TECHNIQUE: CTA imaging of the head and neck from the aortic arch to the skull vertex with intravenous contrast. 3D reconstructions. Contiguous axial scans of 1.25 mm slice thicknesses. Sagittal and coronal reconstruction images were obtained. One or more dose reduction techniques were used (e.g., automated exposure control, adjustment of mA and/or kv according to patient size, use of iterative reconstruction technique). IV CONTRAST: Isovue 370 100 mL. COMPARISON: Carotid duplex ultrasound dated 03/23/2024. FINDINGS: Aortic Arch: Normal size and branching pattern. Mild atherosclerotic calcified plaque. Brachiocephalic and Subclavians: Unremarkable RIGHT Carotid: Right CCA: Unremarkable. Right ICA: Tight stenosis of 85-95% at the origin. Heavy atheromatous plaque is seen at the site of stenosis. Carotid siphon atherosclerotic calcific disease. Right ECA: Unremarkable. LEFT Carotid: Left CCA: Unremarkable. Left ICA: Mild atheromatous plaque at the origin. Carotid siphon atherosclerotic calcific disease. ECA: Unremarkable. Vertebrals: Codominant. Arise from the subclavians. Both vertebrals form the basilar. RIGHT Vertebral: Unremarkable. LEFT Vertebral: Unremarkable. No intracranial aneurysms or large vascular malformations are identified. Anterior cerebral arteries: Unremarkable. Middle cerebral arteries: Unremarkable. Basilar artery: Unremarkable. Posterior cerebral arteries: Unremarkable. Other major branches of the posterior circulation: Unremarkable. Major venous structures: Unremarkable. Other findings: No lymphadenopathy. Lung apices are clear. Multilevel spondylosis and degenerative disc disease. Grade 1 anterolisthesis of C3 on C4 by approximately 3 mm. Septated hypodense nodule in the left thyroid lobe measuring 1.5 cm. Hypodense nodule in the right thyroid lobe superior pole measuring 2.1 x 1 0.1 cm. A hypodense nodule in the right midpole measuring 1.[address]/CTA Head AND Neck W/ Contrast IMPRESSION: RIGHT CAROTID: Critical stenosis of 85-95% at the origin of the right internal carotid. Heavy atheromatous plaque is seen at this site of stenosis. Atherosclerotic calcific disease in the carotid siphon. LEFT CAROTID: Mild atheromatous plaque seen at the origin of the left internal carotid. Atherosclerotic calcific disease in the carotid siphon. VERTEBRALS: Unremarkable. INTRACRANIAL: Unremarkable. Thyroid: Bilateral hypodense nodules, most likely cystic. Consider ultrasound for further evaluation. Bones: Grade 1 anterolisthesis, C3 on C4 most likely degenerative. Spondylosis . Degenerative disc disease. Reading Location: [facility]
== END | disposition home or self-care (01) ==
LOC: CT 15:37
PROVIDERS: PCP Family Medicine; Referring Provider Physician Assistant; Visit Provider Physician Assistant
DX: I65.21 Occlusion and stenosis of right carotid artery (principal)
CPT/HCPCS: 70496; 70498; Q9967

== ENCOUNTER → 2024-06-11 | Outpatient (CLI) | payer MEDICARE, OTHER, SELFPAY ==
--- NOTE | 2024-06-11 10:47 | ECHOL_ITS ---
Reason For Study : DCMP Procedure This was a limited 2D transthoracic echocardiogram. Exam performed in department. Left Ventricle Normal LV size. Moderate concentric left ventricular hypertrophy. Left ventricular systolic function is normal. The left ventricular ejection fraction is 70 %. No regional wall motion abnormalities noted. Right Ventricle Normal RV size. Normal systolic function. Atria Normal left atrium. Normal right atrium. Mitral Valve There is moderate mitral annular calcification. Tricuspid Valve Normal tricuspid valve. Aortic Valve Normal aortic valve. Pulmonic Valve Normal pulmonic valve. Great Vessels Normal aortic root. The pulmonary artery is normal size. Inferior vena cava collapse with respiration. Pericardium/Pleural No pericardial effusion. MMode/2D Measurements & Calculations LVIDd: 3.8 cm IVSd: 1.5 cm LAV(MOD-sp4): 58.0 ml LVIDs: 2.3 cm LVPWd: 1.6 cm FS: 38.8 % LVAd ap4: 21.9 cm2 LVAd ap2: 24.7 cm2 SV(MOD-sp4): 41.8 ml LVLd ap4: 7.1 cm LVLd ap2: 7.3 cm SI(MOD-sp4): 24.6 ml/m2 EDV(MOD-sp4): 54.9 ml EDV(MOD-sp2): 71.7 ml EDV(sp4-el): 57.2 ml EDV(sp2-el): 71.0 ml LVAs ap4: 9.5 cm2 LVAs ap2: 10.9 cm2 LVLs ap4: 5.7 cm LVLs ap2: 6.0 cm ESV(MOD-sp4): 13.1 ml ESV(MOD-sp2): 17.3 ml ESV(sp4-el): 13.4 ml ESV(sp2-el): 17.0 ml EF(MOD-sp4): 76.1 % EF(MOD-sp2): 75.9 % EF(sp4-el): 76.5 % SV(MOD-sp2): 54.4 ml SV(sp4-el): 43.8 ml LA A4 area: 19.6 cm2 SI(MOD-sp2): 32.0 ml/m2 RA A4 area: 10.7 cm2 ECHO/Echo, Limited Study Interpretation Summary Normal LV size. Left ventricular systolic function is normal. The left ventricular ejection fraction is 70 %. There is moderate mitral annular calcification. Moderate concentric left ventricular hypertrophy. The global longitudinal strain is normal. The global longitudinal strain = -18. 6 % (normal). Ordering Physician: Jeb Turner Referring Physician: Jeb Turner Performed By: Leelee Chavira RCS
== END | disposition home or self-care (01) ==
LOC: CVS 10:46
PROVIDERS: PCP Family Medicine; Referring Provider Internal Medicine Cardiovascular Disease; Visit Provider Internal Medicine Cardiovascular Disease
DX: I51.81 Takotsubo syndrome (principal); R93.1 Abnormal findings on diagnostic imaging of heart and coronary circulation
CPT/HCPCS: 93308

== ENCOUNTER 2024-06-29 10:14 | Inpatient (IN) | payer MEDICARE, OTHER, SELFPAY ==
--- NOTE | 2024-06-12 15:08 | PAT.ANE_ITS ---
Pre-Assessment Diagnosis/Proposed Procedure Planned Operative Procedure(s): Right Carotid Endarterectomy Anesthesia History Anesthesia History - draft roller picker: Anesthesia History - draft roller picker Hx Hospitalization No 06/12/24 14:17 Any Problems With Anesthesia No 06/12/24 14:17 Cholinesterase deficiency No 06/12/24 14:17 You/Your Family Experience No 06/12/24 14:17 fever (hyperthermia) with Relationship Recent Exposure to Contagious No 05/19/24 13:42 Disease Does patient have nerve No 06/12/24 14:17 stimulator Patient instructed to have device shut off --Does patient have Pacemaker or ICD? When Was Last Pacemaker Check QUESTION #4 FULL TEXT: You/Your Family Experience fever (hyperthermia) with Anesthesia Last Oral Intake Last Oral intake: Last Oral Intake NPO since Meds taken in AM with sips of water? Meds patient instructed to take am of surgery PONV PONV - draft roller picker: PONV - draft roller picker Female Yes 06/12/24 14:17 HX of Motion Sickness No 06/12/24 14:17 HX of N/V After Surgery No 06/12/24 14:17 Non-Smoker Yes 06/12/24 14:17 Duration of Surgery greater Yes 06/12/24 14:17 than 60 minutes Number of Risk Factors 3 06/12/24 14:17 PONV Score Moderate Risk 06/12/24 14:17 Height & Weight Height & Weight: Anesthesia: Height & Weight Height 5 ft 4 in 05/19/24 13:42 Respiratory Assessment Respiratory Assessment - draft roller picker: Respiratory Tract Infection Hx - draft roller picker Hx Respiratory Tract Infection No 06/12/24 14:17 STOP Sleep Apnea STOP Sleep Apnea - draft roller picker: STOP Sleep Apnea - draft roller picker Hx Hypertension Yes: per pt, spironolactone 06/12/24 14:17 added for better control Hx Sleep Apnea No 06/12/24 14:17 CPAP No 06/12/24 14:17 BIPAP No 06/12/24 14:17 Do you snore loudly (louder No 06/12/24 14:17 than talking or can be heard Do you often feel tired/ No 06/12/24 14:17 fatigued/ sleepy during daytime? Has anyone observed you stop No 06/12/24 14:17 breathing during sleep? STOP Results Negative 06/12/24 14:17 QUESTION #5 FULL TEXT : Do you snore loudly (louder than talking or can be heard through closed doors)? 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 Specify any problems Hx of Preganancy in last 3 No 06/12/24 14:17 Months Nurse Filling Out Transfusion TUCKER 06/12/24 14:17 & Questions: Date: 06/12/24 06/12/24 14:17 Time: 14:19 06/12/24 14:17 Patient unable to answer at this time (ie. confused, unrespo /Reproduction History /Reproductive History - draft roller picker: /Reproductive Hx- draft roller picker Hx Now No 06/12/24 14:17 Gestational Age (in weeks): EDC: Hx Hx Para Hx Section SAB No 06/12/24 14:17 [facility] Medical History (Updated 06/12/24 @ 14:28 by Lili Lange) Alcohol use High cholesterol Gastric reflux Former smoker Shortness of breath on exertion Leg cramps History of stress test History of echocardiogram Cardiology follow-up encounter Anginal equivalent Abnormal EKG Right carotid bruit Left ventricular hypertrophy Hyponatremia B12 deficiency Colon cancer Atherosclerosis of coronary artery of [place] heart without angina pectoris Essential (primary) hypertension Osteopenia Female climacteric state Anxiety Depression GERD (gastroesophageal reflux disease) Hyperlipemia Home Medications ?Medication ?Instructions ?Recorded ?Last Taken ?Type pantoprazole 40 mg tablet,delayed 40 mg PO DAILY GERD 11/28/17 04/10/24 History release (Protonix) duloxetine 60 mg capsule,delayed 60 mg PO DAILY MOOD 0 09/18/18 04/10/24 History release calcium 500 mg-vitamin D3 1,000 1 tab PO DAILY supplem ent 07/28/19 04/10/24 History unit-vitamin K 40 mcg chewable tablet (Citracal-D3 Soft Chew) cholecalciferol (vitamin D3) 10 10 mcg PO DAILY supple ment 03/25/20 04/10/24 History mcg (400 unit) tablet denosumab 60 mg/mL subcutaneous 60 mg subcut [id number] bone density 03/06/21 04/10/24 Rx syringe (Prolia) #1 mL mecobalamin (vitamin B12) 2,500 2,500 mcg PO QODAY sup plement 07/06/22 04/10/24 History mcg chewable tablet losartan 100 mg tablet 100 mg PO QAM Blood pressure #90 05/12/24 Unknown Rx tabs aspirin 81 mg tablet,delayed 81 mg PO QDAY [facility] 06/08/24 Unknown History release (Adult Low Dose Aspirin) carvedilol 12.5 mg tablet 25 mg PO BID heart 06/08/24 Unknown History spironolactone 25 mg tablet 25 mg PO DAILY Blood Press ure #30 06/11/24 Unknown Rx tabs rosuvastatin 10 mg tablet 10 mg PO QHS Cholesterol 01/26 Unknown History Allergy/AdvReac Type Severity Reaction Status Date / Time ciprofloxacin (From Cipro) Allergy Mild Nausea Verified 06/12/24 14:10 diltiazem (From Cardizem) Allergy Mild lower Verified 06/12/24 14:10 extremity edema levofloxacin (From Levaquin) Allergy Mild Tendonitis Verified 06/12/24 14:10 erythromycin base Allergy Unknown Verified 06/12/24 14:10 (Erythromycin Base) amlodipine AdvReac Intermediate Thrush in Verified 06/12/24 14:10 mouth hydralazine AdvReac Intermediate frequent Verified 06/12/24 14:10 urination, BP up instead of down lisinopril AdvReac Mild Cough Verified 06/12/24 14:10 moxifloxacin (From Avelox) AdvReac Mild Nausea Verified 06/12/24 14:10 azithromycin AdvReac Upset Verified 06/12/24 14:10 Stomach Family History Father Hyperlipidemia Mother Hypertension Cancer Brother Hypertension Surgical History (Updated 06/12/24 @ 14:28 by Lili Lange) History of colon resection (01/2020) History of back surgery History of lumbar laminectomy (03/2018) History of left heart catheterization (06/17/09) Hx of appendectomy History of coronary artery stent placement (05/19/07) Social History Smoking Status: Former smoker alcohol intake: current alcohol intake frequency: holidays/special occasions only details: social substance use type: does not use caffeine: No what type of physical activity do you participate in: none seatbelt use: always do you feel safe at home: Yes 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 Sinus rhythm. Extensive T wave abnormality. Anterior lateral inferior ischemia. Echo was obtained 06/21/2024. Which showed normal size and EF. Catheterization performed 04/10/2024. Stress test pertinent findings: 08/23/2022. Negative. EF 76%. Echo (EF%) pertinent findings: 06/11/2024. EF 70%. Normal size. Heart catheterization pertinent findings: 04/10/2024. Coronary artery disease. Previously stented vessel in LAD ramus right coronary artery. Patent with moderate in-stent stenosis. Right coronary artery. Consistent with Takotsubo cardiomyopathy. Consult pertinent findings: Cardiology 03/02/2024. Hypertension. Continue medications. Coronary artery disease. Stent placement. 2007. Stable. Recommendation Anesthesia Recommendation Anesthesia recommendation: OPTIMIZED for anesthesia
[2024-06-16 16:24] LABS: Absolute Neutrophil Count 3.7 X10^3/uL (2.0-7.7); Basophil# 0.03 X10^3/uL; Basophil% 0.5 % (0-1); Eosinophil# 0.07 X10^3/uL; Eosinophils% 1.2 % (0-5); Hematocrit 33.8 % (37-47); Hemoglobin 11.3 g/dL (12.0-15.0); Lymphocyte % 22.5 % (19-41); Mean Corp Hgb Conc 33.4 g/dL (32-36); Mean Corpuscular Hgb 31.3 pg (27.0-32.0); Mean Corpuscular Volume 93.6 fL (81-99); Mean Platelet Vol. 11.8 fl (6.2-12.0); Monocyte# 0.61 X10^3/uL; Monocyte% 10.6 % (0-10); NRBC Flagged by Analyzer 0 % (0-5); Neutrophil # 3.74 X10^3/uL (2.7-7.7); Neutrophil % 64.9 % (47-70); Platelet Count 203 K/mm3 (150-450); RBC Distribution Width CV 13.2 % (11.6-14.6); RBC Distribution Width SD 45.8 fl (35.1-43.9); Red Blood Count 3.61 M/mm3 (4.2-5.4); White Blood Count 5.8 K/mm3 (4.4-11.0)
[2024-06-16 18:33] LABS: Anion Gap 10 (5-15); BUN 17 mg/dL (4-19); BUN/Creat Ratio 17.3 RATIO (10-20); Calcium,Total 8.9 mg/dL (7.6-11.0); Carbon Dioxide 23.5 mmol/L (21.0-32.0); Chloride 99 mmol/L (98-108); EST Glomerular Filtration Rate 59 (>60); Glucose 102 mg/dL (70-99); Potassium 4.4 mmol/L (3.3-5.1); Sodium Level 133 mmol/L (133-145)
[2024-06-29] VITALS (28 sets, daily range): BP systolic 82–162; BP diastolic 47–89; PULSE 60–92; RESP 12–22; TEMP 36–36.6; O2SAT 92–100; BMI 24.6; BMI 24.5
[2024-06-29] MEDS: Lactated Ringers 1,000 ML 15 ML IV (06:16)
--- NOTE | 2024-06-29 06:50 | PCM.PRE.AN2 ---
ASA Classification* ASA Classification ASA Classification: 3 Assessment & Plan Anesthesia* Anesthesia Assessment Anesthesia Assessment: Discussed sedation and/or anesthesia options, risks, benefits, and alternatives with patient/parents/legal guardian/POA. Questions invited. The patient/parents/legal guardian/POA seems to understand and agrees to proceed with anesthesia plan. Reviewed the physical assessment, medical history, allergy history and patient home medications list prior to surgery/procedure/anesthetic and documented any changes. Performed airway and anesthesia risk assessments. Anesthesia Type Anesthesia Type: General (Correll monitor) Anesthesia Focused Assessment* Temperature: 97.9 F Pulse Rate: 65 Blood Pressure: 162/89 Respiratory Rate: 18 Pulse Ox: 100 Airway Assessment Mouth opens: >3 cm Mallampati Score: II Focused Labs Anesthesia Preop lab: CBC WBC 5.8 K/mm3 (4.4-11.0) 06/16/24 15:06/16/24 RBC 3.61 M/mm3 (4.2-5.4) L 06/16/24:06/16/24 Hgb 11.3 g/dL (12.0-15.0) L 06/16/24 15:06/16/24 Hct 33.8 % (37-47) L 06/16/24:06/16/24 Plt Count 203 K/mm3 (150-450) 06/16/24:06/16/24 CHEMISTRY Potassium 4.4 mmol/L (3.3-5.1) 06/16/24:06/16/24 Sodium 133 mmol/L (133-145) 06/16/24:06/16/24 Magnesium 2.3 mg/dL (1.6-2.6) 04/08/24 10:31 04/08/24 BUN 17 mg/dL (4-19) 06/16/24:06/16/24 Creatinine 1.00 mg/dL (0.70-1.20) 06/16/24:06/16/24 Glucose 102 mg/dL (70-99) H 06/16/24 15:06/16/24 TSH 0.995 uIU/mL (0.358-3.740) 04/08/24 10:31 04/08/24 COAG Pre-Assessment Diagnosis/Proposed Procedure Planned Operative Procedure(s): Right Carotid Endarterectomy Anesthesia History Anesthesia History - manager technology: Anesthesia History - manager technology Hx Hospitalization No 06/12/24 14:17 Any Problems With Anesthesia No 06/12/24 14:17 Cholinesterase deficiency No 06/12/24 14:17 You/Your Family Experience No 06/12/24 14:17 fever (hyperthermia) with Relationship Recent Exposure to Contagious No 06/29/24 05:54 Disease Does patient have nerve No 06/12/24 14:17 stimulator Patient instructed to have device shut off --Does patient have Pacemaker No 06/29/24 05:54 or ICD? When Was Last Pacemaker Check QUESTION #4 FULL TEXT: You/Your Family Experience fever (hyperthermia) with Anesthesia Last Oral Intake Last Oral intake: Last Oral Intake NPO since 04:30 06/29/24 05:54 Meds taken in AM with sips of Yes 06/29/24 05:54 water? Meds patient instructed to see medlist 06/29/24 05:54 take am of surgery PONV PONV - manager technology: PONV - manager technology Female Yes 06/12/24 14:17 HX of Motion Sickness No 06/12/24 14:17 HX of N/V After Surgery No 06/12/24 14:17 Non-Smoker Yes 06/12/24 14:17 Duration of Surgery greater Yes 06/12/24 14:17 than 60 minutes Number of Risk Factors 3 06/12/24 14:17 PONV Score Moderate Risk 06/12/24 14:17 Height & Weight Height & Weight: Anesthesia: Height & Weight Height 5 ft 4 in 06/29/24 05:54 Weight: 65.2 kg 06/29/24 05:54 Body Mass Index (BMI) 24.6 06/29/24 05:54 Respiratory Assessment Respiratory Assessment - manager technology: Respiratory Tract Infection Hx - manager technology Hx Respiratory Tract Infection No 06/12/24 14:17 STOP Sleep Apnea STOP Sleep Apnea - manager technology: STOP Sleep Apnea - manager technology Hx Hypertension Yes: per pt, spironolactone 06/12/24 14:17 added for better control Hx Sleep Apnea No 06/12/24 14:17 CPAP No 06/12/24 14:17 BIPAP No 06/12/24 14:17 Do you snore loudly (louder No 06/12/24 14:17 than talking or can be heard Do you often feel tired/ No 06/12/24 14:17 fatigued/ sleepy during daytime? Has anyone observed you stop No 06/12/24 14:17 breathing during sleep? STOP Results Negative 06/12/24 14:17 QUESTION #5 FULL TEXT : Do you snore loudly (louder than talking or can be heard through closed doors)? 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 Specify any problems Hx of Preganancy in last 3 No 06/12/24 14:17 Months Nurse Filling Out Transfusion MGRIFFITH 06/12/24 14:17 & Questions: Date: 06/12/24 06/12/24 14:17 Time: 14:19 06/12/24 14:17 Patient unable to answer at this time (ie. confused, unrespo /Reproduction History /Reproductive History - manager technology: /Reproductive Hx- manager technology Hx Now No 06/12/24 14:17 Gestational Age (in weeks): EDC: Hx Hx Para Hx Section SAB No 06/12/24 14:17 Active Medications Active Medications: Current Medications Generic Name Dose Route Start Last Admin Trade Name Freq PRN Reason Stop Dose Admin Cefazolin Sodium 2 gm/ N/A 20 mls @ 400 mls/hr 06/29/24 07:30 IV 06/29/24 07:32 INTRAOP ONE Sodium Chloride 500 mls @ 1 mls/hr 06/29/24 06:07 IV .Q48H PRN Saline Flush Lactated Ringer's 1,000 mls @ 15 mls/hr 06/29/24 06:30 06/29/24 06:16 IV 15 mls/hr .Q48H CASEY Administration PFSH Medical History Alcohol use High cholesterol Gastric reflux Former smoker Shortness of breath on exertion Leg cramps History of stress test History of echocardiogram Cardiology follow-up encounter Anginal equivalent Abnormal EKG Right carotid bruit Left ventricular hypertrophy Hyponatremia B12 deficiency Colon cancer Atherosclerosis of coronary artery of [place] heart without angina pectoris Essential (primary) hypertension Osteopenia Female climacteric state Anxiety Depression GERD (gastroesophageal reflux disease) Hyperlipemia Home Medications ?Medication ?Instructions ?Recorded ?Last Taken ?Type pantoprazole 40 mg tablet,delayed 40 mg PO DAILY GERD 11/28/17 06/29/24 History release (Protonix) duloxetine 60 mg capsule,delayed 60 mg PO DAILY MOOD 09/18/18 06/28/24 History release calcium 500 mg-vitamin D3 1,000 1 tab PO DAILY supplement 07/28/19 06/27/24 History unit-vitamin K 40 mcg chewable tablet (Citracal-D3 Soft Chew) cholecalciferol (vitamin D3) 10 10 mcg PO DAILY supplement 03/25/20 06/28/24 History mcg (400 unit) tablet denosumab 60 mg/mL subcutaneous 60 mg subcut [id number] bone density 03/06/21 04/10/24 Rx syringe (Prolia) #1 mL mecobalamin (vitamin B12) 2,500 2,500 mcg PO QODAY supplement 07/06/22 06/28/24 History mcg chewable tablet losartan 100 mg tablet 100 mg PO QAM Blood pressure #90 05/12/24 06/29/24 Rx tabs aspirin 81 mg tablet,delayed 81 mg PO QDAY Heart [facility] 06/08/24 06/29/24 History release (Adult Low Dose Aspirin) spironolactone 25 mg tablet 25 mg PO DAILY Blood Pressure #30 06/11/24 06/28/24 Rx tabs rosuvastatin 10 mg tablet 10 mg PO QHS Cholesterol 06/12/24 06/28/24 History carvedilol 12.5 mg tablet 25 mg (2 x 12.5 mg) PO BID heart 06/17/24 06/29/24 Rx #180 tabs Allergy/AdvReac Type Severity Reaction Status Date / Time ciprofloxacin (From Cipro) Allergy Mild Nausea Verified 06/29/24 05:53 diltiazem (From Cardizem) Allergy Mild lower Verified 06/29/24 05:53 extremity edema levofloxacin (From Levaquin) Allergy Mild Tendonitis Verified 06/29/24 05:53 erythromycin base Allergy Unknown Verified 06/29/24 05:53 (Erythromycin Base) amlodipine AdvReac Intermediate Thrush in Verified 06/29/24 05:53 mouth hydralazine AdvReac Intermediate frequent Verified 06/29/24 05:53 urination, BP up instead of down lisinopril AdvReac Mild Cough Verified 06/29/24 05:53 moxifloxacin (From Avelox) AdvReac Mild Nausea Verified 06/29/24 05:53 azithromycin AdvReac Upset Verified 06/29/24 05:53 Stomach Family History Father Hyperlipidemia Mother Hypertension Cancer Brother Hypertension Surgical History History of colon resection (01/2020) History of back surgery History of lumbar laminectomy (03/2018) History of left heart catheterization (06/17/09) Hx of appendectomy History of coronary artery stent placement (05/19/07) Social History Smoking Status: Former smoker alcohol intake: current alcohol intake frequency: holidays/special occasions only details: social substance use type: does not use caffeine: No what type of physical activity do you participate in: none seatbelt use: always do you feel safe at home: Yes 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
--- NOTE | 2024-06-29 07:22 | PCM.HP.BLA ---
History and Physical Allergies ciprofloxacin (From Cipro) Allergy (Mild, Verified 06/08/24 14:27) Nauseadiltiazem (From Cardizem) Allergy (Mild, Verified 06/08/24 14:27) lower extremity edemalevofloxacin (From Levaquin) Allergy (Mild, Verified 06/08/24 14:27) Tendonitiserythromycin base (Erythromycin Base) Allergy (Verified 06/08/24 14:27) Unknownamlodipine Adverse Reaction (Intermediate, Verified 06/08/24 14:27) Thrush in mouthhydralazine Adverse Reaction (Intermediate, Verified 06/08/24 14:27) frequent urination, BP up instead of downlisinopril Adverse Reaction (Mild, Verified 06/08/24 14:27) Coughmoxifloxacin (From Avelox) Adverse Reaction (Mild, Verified 06/08/24 14:27) Nauseaazithromycin Adverse Reaction (Verified 06/08/24 14:27) Upset Stomach Medications ?Medication ?Instructions ?Recorded ?Confirmed ?Type pantoprazole 40 mg tablet,delayed 40 mg PO DAILY 11/28/17 06/08/24 History release (Protonix) duloxetine 60 mg capsule,delayed 60 mg PO DAILY 09/18/18 06/08/24 History release calcium 500 mg-vitamin D3 1,000 1 tab PO DAILY 07/28/19 06/08/24 History unit-vitamin K 40 mcg chewable tablet (Citracal-D3 Soft Chew) cholecalciferol (vitamin D3) 10 10 mcg PO DAILY 03/25/20 06/08/24 History mcg (400 unit) tablet denosumab 60 mg/mL subcutaneous 60 mg subcut [id number] #1 mL 03/06/21 06/08/24 Rx syringe (Prolia) mecobalamin (vitamin B12) 2,500 See Rx Instructions PO .COMPLEX 07/06/22 06/08/24 History mcg chewable tablet rosuvastatin 10 mg tablet See Rx Instructions .Route 02/17/24 06/08/24 Rx .COMPLEX #90 tabs losartan 100 mg tablet 100 mg PO QAM #90 tabs 05/12/24 06/08/24 Rx aspirin 81 mg tablet,delayed 81 mg PO QDAY 06/08/24 06/08/24 History release (Adult Low Dose Aspirin) carvedilol 12.5 mg tablet 25 mg PO BID 06/08/24 06/08/24 History Is last menstrual period known: No Post menopausal: Yes Patient : No Have you fallen in the past year?: Yes PFSH Medical History Anginal equivalent Abnormal EKG Right carotid bruit Left ventricular hypertrophy Hyponatremia B12 deficiency Colon cancer Atherosclerosis of coronary artery of [place] heart without angina pectoris Essential (primary) hypertension Osteopenia Female climacteric state Anxiety Depression GERD (gastroesophageal reflux disease) Hyperlipemia Surgical History History of colon resection (01/2020) History of back surgery History of lumbar laminectomy (03/2018) History of left heart catheterization (06/17/09) Hx of appendectomy History of coronary artery stent placement (05/19/07) Family History Father HyperlipidemiaMother Hypertension CancerBrother Hypertension Social History Smoking Status: Former smoker alcohol intake: current alcohol intake frequency: holidays/special occasions only details: social substance use type: does not use caffeine: No what type of physical activity do you participate in: none seatbelt use: always do you feel safe at home: Yes 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 She has had a CTA and is here to discuss surgical options. She denies numbness/weakness/vision loss/speech difficulty. Currently on ASA and rosuvastatin. She has been working with [employer] regarding optimizing her BP med regimen. ROS General General: Yes colon cancer; No weight change, appetite, fatigue, breast cancer or weakness HEENT HEENT: No difficulty swallowing, eye injury, eye surgery, swollen glands or hoarseness Endo Endocrine: No thyroid disease, diabetes mellitus, thyroid cancer, Hair loss, heat intolerance or cold intolerance Skin Skin: No rash or changing moles Musc Musculoskeletal: Yes back problems and arthritis; No rheumatoid arthritis, gout or joint pain Cardio Cardiovascular: Yes murmur, heart disease, high blood pressure and heart stent; No pacemaker, atrial fibrillation, heart attack, palpitations, shortness of breath with exertion or chest pain Psych Psychiatric: No depression, anxiety or hearing voices Resp Respiratory: Yes shortness of breath, No sleep apnea, No cough, No COPD, No asthma, No emphysema and No wheezing Gastro Gastrointestinal: No abdominal pain, No nausea or vomiting, No diarrhea, No constipation, No blood in stool, No acid reflux, No hemorrhoids, No ulcers, No gallbladder problem and No black,tarry stools Wing Hematologic: Yes blood thinners, No blood disorders, No bleeding, No anemia and No blood clots Additional Details: asa Neuro Neurologic: No system reviewed and no additional complaints, except as documented, No as per HPI, No abnormal gait, No abnormal hearing, No abnormal movements, No abnormal speech, No behavioral changes, No burning sensations, No confusion, No convulsions, No disequilibrium, No dizziness, No localized weakness, No frequent falls, No headache(s), No lack of coordination, No loss of vision, No memory loss, No numbness, No other visual disturbances, No radicular pain, No restless legs, No sensory deficit, No syncope, No tingling, No tremor(s), No weakness and No other Exam Const General: cooperative, healthy appearing, comfortable, no acute distress and well developed Nutritional Appearance: well nourished Orientation: alert, awake and oriented x3 HENMT Head: normocephalic and atraumatic Ears: hearing grossly normal bilaterally Nose: external nose normal Eyes General: appearance normal, both eyes and all related structures EOM: EOM intact bilaterally Neck Neck: normal visual inspection, full ROM, no lymphadenopathy and trachea midline Thyroid: thyroid normal Lymphatic: no lymphadenopathy noted Resp Effort & Inspection: normal respiratory effort, able to speak in complete sentences, symmetric chest movement, no audible wheezes, not labored, no stridor and no use of accessory muscles Auscultation: clear to auscultation bilaterally Cardio Rate: regular rate Rhythm: regular rhythm Heart Sounds: no murmurs Bruits: carotid bruit on the right Pulses: brachial pulses present and radial pulses present Skin General: no rashes or lesions noted and no erythema Wounds: no wounds Neuro Cranial Nerves: CN's II-XI intact bilaterally and EOM intact bilaterally Speech: speech normal Gait: normal gait Motor: strength 5/5 throughout Sensory Exam: no sensory deficits noted Psych Appearance: grossly normal and well kempt Mental Status: mental status grossly normal Mood: congruent mood Speech and Movement: speech and movement normal Thought Content: normal Judgment: judgment good Coding Level of Care Code Off vis,est,level 3 Diagnoses Carotid stenosis, right I65.21 Assessment and Plan Assessment and Plan (1) Carotid stenosis, right: Status: Chronic Comment: CTA- images reviewed, 78% stenosis short lesion with mild calcification Plan: -right CEA
[2024-06-29] MEDS: Cefazolin 2 GM in Syringe IV (08:05)
[2024-06-29] MEDS: Protamine Sulfate 50 MG/5 ML Vial IV (09:57)
[2024-06-29] MEDS: Bupivacaine Mpf 0.5% 30 ML VIAL (10:15)
--- NOTE | 2024-06-29 10:29 | OP.PCM_ITS ---
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 chief: Yes Administrative Coordinator: Oxana Ellsworth Tasks completed by assistant cross country coach: Opening, Closing, Opening & closing, Hemostasis: Tie and Retracting Type of Anesthesia: General RN Documented Start/Stop Times: Operation Date: 06/29/24 07:30 Case Time Into Pre-Op 06/29/24 05:42 Out of Pre-Op 06/29/24 07:29 Anesthesia Start 06/29/24 07:30 Into Room 06/29/24 07:30 Procedure Start 06/29/24 08:17 Procedure End 06/29/24 10:28 Procedure Start Time: 08:15 Procedure Stop Time: 10:30 Select all DRAINS/GRAFTS/IMPLANTS that apply: Drains Drain details: 19 Fr CHRIS and Graft Graft details: bovine pericardial patch Estimated Blood Loss: 14 Specimen collected: Yes Description of specimen(s) removed: plaque Surgical Findings: see above
--- NOTE | 2024-06-29 10:29 | PCM.OPRPT ---
Operative Report (Standard) Operative Information Date of Procedure: 06/29/24 Pre-Operative Diagnosis: right carotid stenosis Post-Operative Diagnosis: same Surgery/Procedure Performed: right carotid endarterectomy ear nose throat physician: Yes Deli Worker: Oxana Ellsworth Tasks completed by nurseryman assistant: Opening, Closing, Opening & closing, Hemostasis: Tie and Retracting Type of Anesthesia: General RN Documented Start/Stop Times: Operation Date: 06/29/24 07:30 Case Time Into Pre-Op 06/29/24 05:42 Out of Pre-Op 06/29/24 07:29 Anesthesia Start 06/29/24 07:30 Into Room 06/29/24 07:30 Procedure Start 06/29/24 08:17 Procedure End 06/29/24 10:28 Anesthesia End 06/29/24 10:38 Out of Room 06/29/24 10:38 Into Recovery 06/29/24 10:45 Out of Recovery 06/29/24 11:15 Procedure Start Time: 08:15 Procedure Stop Time: 10:30 Select all DRAINS/GRAFTS/IMPLANTS that apply: Drains Drain details: 19 Fr CHRIS and Graft Graft details: bovine pericardial patch Estimated Blood Loss: 14 Specimen collected: Yes Description of specimen(s) removed: plaque Description of surgery: HPI: Patient is a 74-year-old female with severe asymptomatic right carotid artery stenosis. She presents for carotid endarterectomy for stroke reduction. Description of procedure: Upon obtaining inform consent and verification of correct patient procedure site the patient was taken to the operating where she was placed under general anesthesia. She was then positioned prepped and draped in usual sterile fashion and timeout was performed. Oblique incision was made at the anterior border of the sternocleidomastoid and Bovie used to dissect down through subcutaneous tissue to the left the platysma. The platysma was then divided and self-retaining retractors put in the position and then further dissection carried down to the sternocleidomastoid. This was freed along the anterior border and retracted laterally exposing the carotid sheath. At this point sharp dissection was used to dissect free the jugular vein along its anterior border with sidebranches ligated with silk ties and divided. The jugular vein was then retracted laterally exposing the carotid vessels. Sharp dissection was used to dissect free the proximal common carotid artery with care taken to identify and protect the vagus nerve. A right angle was used to place a vessel loop and attention then turned to the distal vessels. Sharp dissection was used to dissect free the internal carotid artery beyond the with care taken to identify and protect the hypoglossal nerve. A right angle used to place a vessel loop on the distal vessel beyond the area of plaque and the patient was then heparinized allowed to circulate for 3 minutes. Sharp dissection was then used to dissect free the external carotid artery and a right angle used to place a vessel loop. Vessels were then occluded first the internal followed by the common and the external. A longitudinal arteriotomy was created with an 11 blade on the common carotid artery and extended onto the internal carotid artery with Vasquez scissors. A 14 Hebrew Shepherd shunt was then placed first distally in the internal carotid artery and allowed to backbleed before placing proximally in the common carotid artery. We then performed our endarterectomy with satisfactory endpoint distally on the internal carotid artery and eversion endarterectomy of the external carotid artery. The distal endpoint was then tacked with 7-0 Prolene interrupted suture and flushed with heparinized saline to clear of any debris. A bovine pericardial patch was then secured in position using a 6-0 Prolene in a running fashion. Prior to completing the suture line the shunt was removed and the vessel was backbled. After completing the suture line the internal carotid artery allowed to backbleed into the bifurcation and then it was reoccluded at the origin. Clamps were then removed first from the external and the common carotid to lateral 10 heartbeats of antegrade flow to flush into the external carotid artery before reestablishing flow into the internal carotid artery. Heparin was then reversed with protamine and the incision inspected for hemostasis. [place] topical hemostatic was applied and a 19 Hebrew channel CHRIS placed via separate stab incision. The incision was then closed with 2-0 Vicryl, 3-0 Vicryl, 4 Monocryl and Dermabond for the skin. At the conclusion of the case the patient was awake from anesthesia moving all extremities to command with cranial nerves intact. The patient was then taken the recovery room with anticipated admission to the intensive care and for hemodynamic and neurologic monitoring. Surgical Findings: see above Complications Complications: No
--- NOTE | 2024-06-29 10:45 | PCM.POST.ANE ---
Anesthesia: Postop Eval I Current Vital Signs Temperature: 96.8 F Pulse Rate: 70 Blood Pressure: 158/85 (pressure on NIBP. Toshia 156/70) Respiratory Rate: 20 Pulse Ox: 94 Assessment Airway patent: Yes Spontaneous unlabored respirations: Yes nausea: No Vomiting: No Anesthesia Complication: No Fluid Hydration Crystalloid volume administer (ml): 1,500 Total IV fluid infused: 1,500 Progress Note Anesthesia document: Postop Eval 1 completed: Yes
[2024-06-29 11:29] LABS: ACT Activated Clotting Time 256 sec (74-137)
[2024-06-29 11:29] LABS: ACT Activated Clotting Time 130 sec (74-137)
[2024-06-29 11:29] LABS: ACT Activated Clotting Time 418 sec (74-137)
--- NOTE | 2024-06-29 12:11 | POSTOPAN2_ITS ---
Anesthesia Postop Eval I Sum Postop Eval Completion status Anesthesia document: Postop Eval 1 completed: Yes Anesthesia Postop Eval I Summary Anesthesia Postop Eval I Summary: Anesthesia Postop Eval I: Assessment Summary Airway patent Yes 06/29/24 10:45 [email or web address] [email or web address] Spontaneous unlabored Yes 06/29/24 10:45 [email or web address] [email or web address].[email or web address] respirations Mental status nausea No 06/29/24 10:45 DESKTOP [email or web address].[email or web address] Vomiting No 06/29/24 10:45 [email or web address] [email or web address].[email or web address] Anesthesia Postop Eval I: Fluid Summary Crystalloid volume administer 1,500 06/29/24 10:45 [email or web address] [email or web address].[email or web address] (ml) Colloids volume administered ( ml) Blood Product volume administered (ml) Total IV fluid infused 1,500 06/29/24 10:45 DESKTOP [email or web address].CSIR Anesthesia Postop Eval I: Summary Notes Anesthesia Complication No 06/29/24 10:45 [email or web address] [email or web address].CSIR Anesthesia Complication Comment: Post-operative progress note Anesthesia: Postop Eval II Evaluation Mental status: Awake Pain Level: 1 nausea: No Vomiting: No
--- NOTE | 2024-06-29 12:11 | PCM.POSTANE2 ---
Anesthesia Postop Eval I Sum Postop Eval Completion status Anesthesia document: Postop Eval 1 completed: Yes Anesthesia Postop Eval I Summary Anesthesia Postop Eval I Summary: Anesthesia Postop Eval I: Assessment Summary Airway patent Yes 06/29/24 10:45 [email or web address] [email or web address] Spontaneous unlabored Yes 06/29/24 10:45 METAL [email or web address].CSIR respirations Mental status nausea No 06/29/24 10:45 METAL CHECKER.CSIR Vomiting No 06/29/24 10:45 METAL [email or web address].CSIR Anesthesia Postop Eval I: Fluid Summary Crystalloid volume administer 1,500 06/29/24 10:45 METAL [email or web address].CSIR (ml) Colloids volume administered ( ml) Blood Product volume administered (ml) Total IV fluid infused 1,500 06/29/24 10:45 METAL [email or web address] Anesthesia Postop Eval I: Summary Notes Anesthesia Complication No 06/29/24 10:45 METAL [email or web address].CSIR Anesthesia Complication Comment: Post-operative progress note Anesthesia: Postop Eval II Evaluation Mental status: Awake Pain Level: 1 nausea: No Vomiting: No
[2024-06-29] MEDS: Acetaminophen 500 MG Tablet 1000 MG PO ×2 (12:25→20:57)
[2024-06-29] MEDS: oxyCODONE 5 MG Tablet PO (12:27)
--- NOTE | 2024-06-29 12:54 | PLAQ_PTH ---
PATIENT: KLAUS MANTILLA LOC: ICU U#:[id number] AGE/SX: 74/F ROOM: [facility] RE06/29/[address]: Dr. Jaden Schaffer MD : 1950 BED: 1 DIS: 06/30/2024 SPEC #: [id number] RECD: 06/29/24 13:51 STATUS: SUKHWINDER REQ #: [id number] CONSTANTINE: 06/29/24 12:[address]: Jaden Schaffer DEPT: SURGICAL PATHOLOGY RECD BY: Taran Hernanedz ENTERED: 06/29/24 13:51 SP TYPE: PLAQUE OTHR DR: Dr. Etienne Donahue MD Tissues: A - PLAQUE Procedures: Decalcification bone/plaque Surgery Specimen Level III HEADER OPERATION: Right carotid endarterectomy PRE-OP DIAGNOSIS: Carotid stenosis, right TISSUE SUBMITTED: A- Right carotid plaque MICROSCOPIC DIAGNOSIS A. Right carotid artery,endarterectomy: * Calcifying atheromatous plaque GROSS DESCRIPTION A. Received in formalin in a container labeled with the patient's name, date of , and right carotid plaque are multiple pascual-yellow fragments of membranous and calcified tissue measuring 2.5 x 2.0 x 1.0 cm in aggregate. Sectioning reveals firm and gritty surfaces. Laboratory Monitor sections submitted in A1 following decalcification. [facility] 06-29-2024 CPT:05642,34241
[2024-06-29] MEDS: hydrALAZINE 20 MG/ML Vial 10 MG IV (13:22)
[2024-06-29] MEDS: 0.9% Normal Saline (500mL Bag) 500 ML 999 ML IV (14:15)
[2024-06-29] MEDS: Cefazolin 1 GM/50 ML BAG IV ×2 (16:33→23:44)
[2024-06-29] MEDS: Atorvastatin Calcium 20 MG Tablet PO (20:58)
[2024-06-29] MEDS: 0.9% Saline Lock 10 ML Syringe IV (23:47)
[2024-06-30] VITALS (13 sets, daily range): BP systolic 97–132; BP diastolic 48–71; PULSE 68–92; RESP 12–25; TEMP 36.6–36.8; O2SAT 92–99; BMI 25.6
[2024-06-30 04:04] LABS: Absolute Lymphocyte Count 0.55 X10^3/uL (0.83-4.51); Absolute Neutrophil Count 8.7 X10^3/uL (2.0-7.7); Basophil# 0.01 X10^3/uL; Basophil% 0.1 % (0-1); Hematocrit 30.3 % (37-47); Hemoglobin 10.4 g/dL (12.0-15.0); Lymphocyte # 0.55 X10^3/ul (0.83-4.51); Lymphocyte % 5.5 % (19-41); Mean Corp Hgb Conc 34.3 g/dL (32-36); Mean Corpuscular Hgb 31.8 pg (27.0-32.0); Mean Corpuscular Volume 92.7 fL (81-99); Mean Platelet Vol. 11.3 fl (6.2-12.0); Monocyte# 0.72 X10^3/uL; Monocyte% 7.2 % (0-10); NRBC Flagged by Analyzer 0 % (0-5); Neutrophil # 8.68 X10^3/uL (2.7-7.7); Neutrophil % 86.7 % (47-70); POSITIVE DIFFERENTIAL YES; Platelet Count 216 K/mm3 (150-450); RBC Distribution Width CV 13.2 % (11.6-14.6); Red Blood Count 3.27 M/mm3 (4.2-5.4)
[2024-06-30 04:54] LABS: Anion Gap 10 (5-15); BUN 16 mg/dL (4-19); BUN/Creat Ratio 17.1 RATIO (10-20); Carbon Dioxide 19.7 mmol/L (21.0-32.0); Chloride 100 mmol/L (98-108); Creatinine, Serum 0.95 mg/dL (0.70-1.20); EST Glomerular Filtration Rate 62 (>60); Estimated Creatinine Clearance 44.18 ml/min (50-250); Glucose 128 mg/dL (70-99); Magnesium 1.8 mg/dL (1.5-2.2); Phosphorus 3.6 mg/dL (2.7-4.5); Sodium Level 129 mmol/L (133-145)
[2024-06-30] MEDS: Acetaminophen 500 MG Tablet 1000 MG PO (06:16)
[2024-06-30] MEDS: DULoxetine Hcl 60 MG Capsule PO (08:42)
[2024-06-30] MEDS: Calcium Carb/Vitamin D 1 TABLET Tablet PO (08:42)
[2024-06-30] MEDS: Pantoprazole Sodium 40 MG Tablet PO (08:42)
[2024-06-30] MEDS: Carvedilol 25 MG Tablet PO (08:42)
[2024-06-30] MEDS: Aspirin E.C. 81 MG Tablet PO (08:42)
[2024-06-30] MEDS: Enoxaparin 40 MG/0.4 ML Syringe SC (08:43)
--- NOTE | 2024-06-30 09:49 | CASEMGMT ---
SILAS BRASWELL Assessment Face to Face with patient for initial transition planning/care coordination assessment. RN FRENCH introduced self and role at [facility], pt voices understanding. Pt is A&Ox4 and is resting comfortably in the chair and is calm. Pt is at bedside. Pt recently finished working with PT/OT. Per ICU rounds, pt will likely DC today. Care providers, pharmacy, and demographics verified. Admitting dx: Rt Carotid Endarterectomy LACE Strata: 2 PCP: Rowan Specialists: Karime (Vascular), King BRUCE (Endo), Ran (SEWER SYSTEM SUPERVISOR) Preferred Pharmacy: [facility] Insurance: [employer] A/B, AARP Prescription Benefit: Yes LNOK: Fernando (H) Living Arrangements: Pt lives with her in a 2 story home with 2 steps to enter with a handrail ADLs/IADLs: Independent Transportation: Self, DME: Pt states that she has access to a BP cuff, grab bars, FWW, and shower chair HHC/SNF: Denies hx or needs Pt?s goal: Home Plan: Home with pt today, anticipate no additional needs. Pt states that PT went well and denies the need for OP Tx or any further DC assistance. Pt states that she feels safe returning home with her SO today and denies further questions or concerns at this time. CM to follow for potential blood thinning Rx. Sampson Maloney RN, CM
--- NOTE | 2024-06-30 12:07 | DS.PCM_ITS ---
Providers Date of Admission: 06/29/24 Primary Care Physician: Dr. Etienne Donahue MD Reason For Visit: Right Carotid Endarterectomy Medications at Discharge Home Medications pantoprazole 40 mg tablet,delayed release (Protonix) 40 mg PO DAILY GERD 11/28/17 duloxetine 60 mg capsule,delayed release 60 mg PO DAILY MOOD 09/18/18 calcium 500 mg-vitamin D3 1,000 unit-vitamin K 40 mcg chewable tablet (Citracal- D3 Soft Chew) 1 tab PO DAILY supplement 07/28/19 cholecalciferol (vitamin D3) 10 mcg (400 unit) tablet 10 mcg PO DAILY supplement 03/25/20 denosumab 60 mg/mL subcutaneous syringe (Prolia) 60 mg subcut [id number] bone density #1 mL 03/06/21 mecobalamin (vitamin B12) 2,500 mcg chewable tablet 2,500 mcg PO QODAY supplement 07/06/22 losartan 100 mg tablet 100 mg PO QAM Blood pressure #90 tabs 05/12/24 Held on 06/30/24. Instructions: Resume on 07/02/24. aspirin 81 mg tablet,delayed release (Adult Low Dose Aspirin) 81 mg PO QDAY [facility] 06/08/24 spironolactone 25 mg tablet 25 mg PO DAILY Blood Pressure #30 tabs 06/11/24 Held on 06/30/24. Instructions: Resume on 07/03/24. rosuvastatin 10 mg tablet 10 mg PO QHS Cholesterol 06/12/24 carvedilol 12.5 mg tablet 25 mg (2 x 12.5 mg) PO BID heart #180 tabs 06/17/24 acetaminophen 500 mg tablet 1,000 mg (2 x 500 mg) PO Q8 #0 tabs 06/30/24 Hospital Course Summary of Care Provided Hospital Course: Tova Reyna is a 74 y/o female who underwent planned R CEA on 06/29/24. The procedure was without complication and she tolerated it well. Postoperatively, she was routinely admitted to the ICU for hemodynamic and neurologic monitoring. She remained neurologically stable and intact throughout her admission. She had some labile blood pressures intraoperatively. Postoperatively, she was initially hypertensive and then received PRN labetalol with little effect then PRN hydralazine and developed symptomatic hypotension which responded well to fluid bolus. She remained slightly hypotensive overnight but not requiring any pressors. This morning, she received home carvedilol with pressures remaining 110-130s. Her home losartan and spironolactone have remained held. Otherwise, CHRIS drain had serosanguineous output and was removed this morning POD#1 without issue. She has been voiding without difficulty, tolerating a normal diet, and ambulating to her baseline. She is stable for discharge home with planned outpatient follow-up in a few weeks. She will continue to monitor her BP and restart losartan and spironolactone on outpatient basis as appropriate. Physical Exam Const oriented x3 and no apparent distress HEENT normocephalic, hearing grossly normal bilaterally, external ears normal and external nose normal Eyes EOMs intact bilaterally General Eye: normal appearance of both eyes Neck Neck Narrative: R neck incision site with skin glue intact, mild ecchymosis without significant edema or hematoma. Resp normal respiratory effort Cardio regular rate and regular rhythm Extremity no clubbing, cyanosis or edema Skin no rashes or lesions noted Neuro CN's II-XII intact bilaterally, moves all extremities, no focal motor deficits and no sensory deficits noted Weight / BMI Weight Weight: 150 lb Body Mass Index (BMI) 25.6 ABG / Lab / Microbiology Data 06/30/24 03:45 06/30/24 03:45 Laboratory: Laboratory Results - last 24 hr 06/30/24 03:45: WBC 10.0, RBC 3.27 L, Hgb 10.4 L, Hct 30.3 L, MCV 92.7, MCH 31.8, MCHC 34.3, RDW Std Deviation 45.0 H, RDW Coeff of Sam 13.2, Plt Count 216, MPV 11.3, Immature Gran % (Auto) 0.500, Neut % (Auto) 86.7 H, Lymph % (Auto) 5.5 L, [place] % (Auto) 7.2, Eos % (Auto) 0.0, Baso % (Auto) 0.1, Absolute Neuts (auto) 8.7 H, Absolute Lymphs (auto) 0.55 L, Nucleated RBC % 0, Sodium 129 L, Potassium 4.0, Chloride 100, Carbon Dioxide 19.7 L, Anion Gap 10, BUN 16, Creatinine 0.95, Estim Creat Clear Calc 44.18 L, Est GFR (MDRD) Non-Af 62, BUN/Creatinine Ratio 17.1, Glucose 128 H, Calcium 8.0, Phosphorus 3.6, Magnesium 1.8 D/C Instructions Discharge Diet: No restrictions May shower in (days): 1 Weight Bearing Status: Weight bearing as tolerated Lifting Restricted to (Lbs): 20 Lifting Restrictions: Do not lift greater than 20 pounds for 3 weeks Call your doctor if your incision/area has: Sudden Increased Bleeding, Increased Pain/ Swelling and Foul Smelling Discharge Call your doctor if you observe: Fever of 101 or Higher and Uncontrolled pain Remove Dressing in: 1 day DC O2, CPAP, BIPAP Needs Home O2 Discharge instructions: No Additional Instructions: INCISION CARE: * You have a small bandage on your neck over the site from which the surgical drain was removed. You may remove this bandage tomorrow. As long as there is no residual drainage, you may leave this open to air. If you do notice some continued drainage, you may re-cover with a Band-Aid. * Your neck incision site is covered with skin glue which will continue to protect it. The skin glue will peel/flake off on its own over the next few weeks. Please do not pick at it. * You may shower tomorrow. It is okay for soap and water to rinse over the incision site, pat to dry. * Do not submerge the incision site in water such as to take a bath or go swimming etc. for 3 weeks. MEDICATION INSTRUCTIONS * Your blood pressures have been on the lower side since surgery. Due to this, we have held your usual home blood pressure medications. Please follow the instructions below to slowly restart these as needed. * Continue to take your Carvedilol (Coreg) 25mg twice daily. * Hold Losartan 100mg daily and Spironolactone 25mg daily for now. Please check your blood pressure every morning and every evening or any time you feel dizzy/lightheaded or have other symptoms. When your systolic blood pressure (top number) is 140 mmHg then restart your Losartan 100mg daily first. Then continue to check your blood pressure daily and if it is again >140 on the top, restart your Spironolactone 25mg daily. * Call the office at [phone] with any questions about your medications ACTIVITY INSTRUCTIONS * Do not lift greater than 20 pounds for 3 weeks. Otherwise, please continue with activity as tolerated. * Do not drive until you can turn your head well enough to safely check your blind spots. Please Follow Up With: Aracely Ferguson PA When: 07/15/24 Meaningful Use Info Meaningful Use Meaningful Use Diagnoses (Choose all that apply): None applicable Ischemic Stroke Statin Dosing Therapy Reference: STATIN DOSE THERAPY REFERENCE: * Patients > 75 years receive moderate or high dose statin therapy. * Patients 75 years or YOUNGER should receive HIGH intensity statin dose unless contraindicated. You will be required to document reason for non-treatment if statin daily dose does not meet guidelines. HIGH DOSE STATIN THERAPY DAILY Atorvastatin > than or = to 40 mg Rosuvastatin > than or = to 20 mg Amlodipine + Atorvastatin > than or = to 2.5/40 mg Ezetimibe + Simvastatin 10/80 mg Simvastatin 80mg Discharge Plan Admission Admit Date/Time: 06/29/24 10:14 Attending Provider: Jaden Schaffer Primary Care Provider: Etienne Donahue Instructions Additional Instructions / Restrictions: INCISION CARE: * You have a small bandage on your neck over the site from which the surgical drain was removed. You may remove this bandage tomorrow. As long as there is no residual drainage, you may leave this open to air. If you do notice some continued drainage, you may re-cover with a Band-Aid. * Your neck incision site is covered with skin glue which will continue to protect it. The skin glue will peel/flake off on its own over the next few weeks. Please do not pick at it. * You may shower tomorrow. It is okay for soap and water to rinse over the incision site, pat to dry. * Do not submerge the incision site in water such as to take a bath or go swimming etc. for 3 weeks. MEDICATION INSTRUCTIONS * Your blood pressures have been on the lower side since surgery. Due to this, we have held your usual home blood pressure medications. Please follow the instructions below to slowly restart these as needed. * Continue to take your Carvedilol (Coreg) 25mg twice daily. * Hold Losartan 100mg daily and Spironolactone 25mg daily for now. Please check your blood pressure every morning and every evening or any time you feel dizzy/lightheaded or have other symptoms. When your systolic blood pressure (top number) is 140 mmHg then restart your Losartan 100mg daily first. Then continue to check your blood pressure daily and if it is again >140 on the top, restart your Spironolactone 25mg daily. * Call the office at [phone] with any questions about your medications ACTIVITY INSTRUCTIONS * Do not lift greater than 20 pounds for 3 weeks. Otherwise, please continue with activity as tolerated. * Do not drive until you can turn your head well enough to safely check your blind spots. Discharge Orders/Prescriptions Prescriptions: New acetaminophen 500 mg Tablet 1,000 mg PO Q8 Qty: 0 0RF Continued pantoprazole [Protonix] 40 mg tablet,delayed release (DR/EC) 40 mg PO DAILY calcium-vitamin D3-vitamin K [Citracal-D3 Soft Chew] 500 mg-1,000 unit-40 mcg tablet,chewable 1 tab PO DAILY Prolia 60 mg/mL syringe 60 mg subcut [id number] Qty: 1 1RF mecobalamin (vitamin B12) 2,500 mcg tablet,chewable 2,500 mcg PO QODAY Rx Instructions: orally EOD; aspirin [Adult Low Dose Aspirin] 81 mg tablet,delayed release (DR/EC) 81 mg PO QDAY duloxetine 60 mg capsule,delayed release(DR/EC) 60 mg PO DAILY cholecalciferol (vitamin D3) 10 MCG tablet 10 mcg PO DAILY rosuvastatin 10 mg tablet 10 mg PO QHS Rx Instructions: take 1 tablet by mouth once daily carvedilol 12.5 mg tablet 25 mg PO BID Qty: 180 3RF Rx Instructions: must administer with a meal/food Held losartan 100 mg tablet 100 mg PO QAM Qty: 90 3RF Hold Instructions: Resume on 07/02/24. spironolactone 25 mg tablet 25 mg PO DAILY Qty: 30 11RF Hold Instructions: Resume on 07/03/24. Referrals / Follow Up: Etienne Donahue MD [Primary Care Provider] - Disposition Disposition (needs filled in before D/C Order can be placed): Home, Self Care Charges/Coding Procedures Integumentary [id number]: [id number] Global Visit
== END 2024-06-30 12:55 | disposition home or self-care (01) | DRG 39 ==
LOC: ICU 13:19
PROVIDERS: Admitting Provider Surgery Trauma Surgery; PCP Family Medicine; Referring Provider Surgery Trauma Surgery; Visit Provider Surgery Trauma Surgery
PROC: 03CK0ZZ Extirpation of Matter from Right Internal Carotid Artery, Open Approach (ICD-10-PCS; CPT 35301; principal; 2024-06-29 07:10)
DX: I65.21 Occlusion and stenosis of right carotid artery (principal); E78.5 Hyperlipidemia, unspecified; I10 Essential (primary) hypertension; I25.10 Atherosclerotic heart disease of native coronary artery without angina pectoris; K21.9 Gastro-esophageal reflux disease without esophagitis; I25.83 Coronary atherosclerosis due to lipid rich plaque; Z79.82 Long term (current) use of aspirin; Z87.891 Personal history of nicotine dependence; Z95.5 Presence of coronary angioplasty implant and graft; Z79.899 Other long term (current) drug therapy; Z79.02 Long term (current) use of antithrombotics/antiplatelets; Z88.8 Allergy status to other drugs, medicaments and biological substances; Z88.1 Allergy status to other antibiotic agents
CPT/HCPCS: 36415; 80048; 83735; 84100; 85025; 85347; 86850; 86900; 86901; 88304; 88311; 94668; 97161; 97802; 99252; A4648; A4216; G0463; J2405

== ENCOUNTER → 2024-08-24 | Outpatient (CLI) | payer MEDICARE, OTHER, SELFPAY ==
[2024-08-24 13:08] LABS: AST(SGOT) 30 U/L (<=31); Alanine Aminotransfer ALT/SGPT 28 U/L (<=34); Alkaline Phosphatase 70 U/L (35-104); Bilirubin, Direct 0.17 mg/dL (0.00-0.30); Cholesterol 230 mg/dL (<=200); Globulin 2.5 g/dL (2.2-4.2); High Density Lipoprotein 125 mg/dL; Low Density Lipoprotein Calc. 91 mg/dL; Protein, Total 6.5 g/dL (5.9-8.4); Total Bilirubin 0.36 mg/dL (0.00-1.30); Triglycerides 69 mg/dL; Very Low Density Lipoprotein 14 mg/dL (5-40); cholesterol:hdl ratio screen 1.84
== END | disposition home or self-care (01) ==
LOC: LAB 10:50
PROVIDERS: PCP Family Medicine; Referring Provider Physician Assistant Medical; Visit Provider Physician Assistant Medical
DX: E78.00 Pure hypercholesterolemia, unspecified (principal)
CPT/HCPCS: 36415; 80061; 80076

== ENCOUNTER → 2024-10-08 | Outpatient (CLI) | payer MEDICARE, OTHER, SELFPAY ==
[2024-10-08 18:19] LABS: Hematocrit 37.5 % (37-47); Hemoglobin 12.1 g/dL (12.0-15.0); Immature Granulocytes Count 0.020 X10^3/uL (0.0-0.0); Mean Corp Hgb Conc 32.3 g/dL (32-36); Mean Corpuscular Volume 90.4 fL (81-99); Mean Platelet Vol. 11.6 fl (6.2-12.0); NRBC Flagged by Analyzer 0 % (0-5); Platelet Count 218 K/mm3 (150-450); RBC Distribution Width CV 14.7 % (11.6-14.6); RBC Distribution Width SD 48.5 fl (35.1-43.9); Red Blood Count 4.15 M/mm3 (4.2-5.4); White Blood Count 6.7 K/mm3 (4.4-11.0)
[2024-10-08 18:36] LABS: AST(SGOT) 25 U/L (<=31); Alanine Aminotransfer ALT/SGPT 23 U/L (<=34); Albumin, Serum 4.2 g/dL (3.4-4.8); Alkaline Phosphatase 75 U/L (35-104); Anion Gap 11 (5-15); BUN 11 mg/dL (4-19); BUN/Creat Ratio 13.1 RATIO (10-20); Calcium,Total 9.3 mg/dL (7.6-11.0); Carbon Dioxide 25.8 mmol/L (21.0-32.0); Chloride 95 mmol/L (98-108); Globulin 2.4 g/dL (2.2-4.2); Glucose 105 mg/dL (70-99); Potassium 4.3 mmol/L (3.3-5.1)
== END | disposition home or self-care (01) ==
LOC: MTLAB 16:01
PROVIDERS: PCP Family Medicine
DX: E87.1 Hypo-osmolality and hyponatremia (principal); R19.7 Diarrhea, unspecified
CPT/HCPCS: 36415; 80053; 84443; 85025

== ENCOUNTER → 2024-11-16 | Outpatient (CLI) | payer MEDICARE, OTHER, SELFPAY ==
--- NOTE | 2024-11-16 09:42 | CDU_ITS ---
Reason For Study Reason For Study: s/p RT CEA Rt. Velocities/BP Lt. Velocities/BP Prox CCA 97/9 cm/sec. Prox CCA 69/7 cm/sec. Mid CCA 55/7 cm/sec. Mid CCA 68/8 cm/sec. Dist CCA 67/10 cm/sec. Dist CCA 59/13 cm/sec. Prox ICA 30/6 cm/sec. Prox ICA 46/11 cm/sec. Mid ICA 100/18 cm/sec. Mid ICA 67/17 cm/sec. Dist ICA 77/16 cm/sec. Dist ICA 41/11 cm/sec. Rt. ICA/CCA = 1.82. Lt. ICA/CCA = 0.99. Prox ECA 59/7 cm/sec. Prox ECA 52/7 cm/sec. Rt. Vert. 52/7 cm/sec. Lt. Vert. 47/9 cm/sec. Right Extracranial There is heterogeneous, smooth atherosclerotic plaque noted in the right common carotid artery. There is heterogeneous, smooth atherosclerotic plaque noted in the right internal carotid artery. Rt ICA dives. There is no significant atherosclerotic plaque noted in the right external carotid artery. Antegrade flow is noted in the right vertebral artery. Anechoic, non vascular structure noted Rt Thyroid measuring 1.21cm x 1.89cm. Left Extracranial There is intimal thickening but no significant atherosclerotic plaque noted in the left common carotid artery. There is heterogeneous, irregular atherosclerotic plaque noted in the left internal carotid artery. There is no significant atherosclerotic plaque noted in the left external carotid artery. Antegrade flow is noted in the left vertebral artery. Anechoic, non vascular structure noted Lt Thyroid measuring 1.49 cm x 1.48cm. Procedure Carotid Duplex 21173. This is a Carotid Duplex examination using B-mode, color flow and specral Doppler. Exam performed in department. VL/Carotid Duplex Ultrasound Interpretation Summary Mild (<50%) stenosis right extracranial internal carotid. Mild (<50%) stenosis left extracranial internal carotid. Patent and antegrade vertebrals bilaterally. Anechoic, non vascular structure noted right thyroid measuring 1.21cm x 1.89cm Anechoic, non vascular structure noted left thyroid measuring 1.49 cm x 1.48cm Ordering Physician: Aracely Ferguson Referring Physician: Etienne Donahue Performed By: Paula Chambers RDCS, RVT
== END | disposition home or self-care (01) ==
LOC: CVS 09:42
PROVIDERS: PCP Family Medicine; Referring Provider Physician Assistant; Visit Provider Physician Assistant
DX: I65.21 Occlusion and stenosis of right carotid artery (principal); Z98.890 Other specified postprocedural states; Z48.812 Encounter for surgical aftercare following surgery on the circulatory system
CPT/HCPCS: 93880

== ENCOUNTER → 2024-12-04 | Outpatient (CLI) | payer MEDICARE, OTHER, SELFPAY ==
--- NOTE | 2024-12-04 12:20 | US_ITS ---
PROCEDURE: THYROID 12/04/2024 REASON FOR EXAM: NEW THYROID NODULES TECHNIQUE: Procedure Code: USTHY Modality: US Procedure: THYROID COMPARISON: None FINDINGS: Right thyroid lobe size: 4.7 cm x 2.2 cm 1.6 cm Left thyroid lobe size: 4.7 cm 1.9 cm 1.7 cm Isthmus: 0.2 cm Background parenchymal echotexture is homogeneous. Nodules: . Lobe: Right, Location: Superior, Size: 2 cm x 1 cm x 0.8 cm, Stability: N/A Composition: Cystic or mostly cystic (+0) Echogenicity: Anechoic (+0) Margin: Smooth (+0) Shape: Wider than tall (+0) Echogenic Foci: None (+0) TI-RADS: 1 . Lobe: Right, Location: Superior, Size: 0.5 cm 0.4 cm x 0.3 cm, Stability: N/A Composition: Cystic or mostly cystic (+0) Echogenicity: Anechoic (+0) Margin: Smooth (+0) Shape: Wider than tall (+0) Echogenic Foci: None (+0) TI-RADS: 1 There is a 1.5 cm x 1.4 cm x 1.1 cm cyst with septations in the upper pole of the left kidney. Scattered bilateral subcentimeter nodules. US/Thyroid IMPRESSION: Cystic nodules in both lobes suggestive of goiter is change. RECOMMENDATION: Based on most suspicious nodule. Nodule size = largest diameter Only evaluate nodule if =>5 mm. Growth > 20% in 2 dimensions = worsening. Follow up to 4 nodules. Recommend biopsy for no more than 2 nodules. Reading Location: [facility]
== END | disposition home or self-care (01) ==
LOC: US 12:18
PROVIDERS: PCP Family Medicine; Referring Provider Physician Assistant; Visit Provider Physician Assistant
DX: E04.1 Nontoxic single thyroid nodule (principal)
CPT/HCPCS: 76536

== ENCOUNTER 2024-12-13 12:08 | Inpatient (IN) | payer MEDICARE, OTHER, SELFPAY ==
[2024-12-13] VITALS (10 sets, daily range): BP systolic 146–206; BP diastolic 79–111; PULSE 74–95; RESP 16–31; TEMP 36.8–37; O2SAT 92–97; BMI 25.4; BMI 25.0
[2024-12-13 12:39] LABS: Hematocrit 37.2 % (37-47); Hemoglobin 12.2 g/dL (12.0-15.0); Immature Granulocytes Count 0.080 X10^3/uL (0.0-0.0); Mean Corp Hgb Conc 32.8 g/dL (32-36); Mean Corpuscular Volume 91.2 fL (81-99); Mean Platelet Vol. 11.0 fl (6.2-12.0); NRBC Flagged by Analyzer 0 % (0-5); Platelet Count 199 K/mm3 (150-450); RBC Distribution Width CV 13.5 % (11.6-14.6); RBC Distribution Width SD 44.0 fl (35.1-43.9); Red Blood Count 4.08 M/mm3 (4.2-5.4); White Blood Count 11.6 K/mm3 (4.4-11.0)
[2024-12-13 13:03] LABS: Anion Gap 10 (5-15); BUN 15 mg/dL (4-19); BUN/Creat Ratio 19.1 RATIO (10-20); Calcium,Total 8.7 mg/dL (7.6-11.0); Carbon Dioxide 24.2 mmol/L (21.0-32.0); Chloride 97 mmol/L (98-108); Estimated Creatinine Clearance 57.25 ml/min (50-250); Glucose 138 mg/dL (70-99); Potassium 4.4 mmol/L (3.3-5.1)
[2024-12-13 13:06] LABS: Troponin T High Sensitivity 229 ng/L (<=14)
[2024-12-13] MEDS: Heparin Injection (Vial) 5,000 UNIT/ML VIAL 4000 UNIT IV (13:27)
[2024-12-13] MEDS: Furosemide 20 MG/2 ML VIAL IV ×2 (13:28→17:54)
[2024-12-13 13:34] LABS: Prothrombin Time (Protime)PT. 12.8 SECONDS (11.7-14.9)
[2024-12-13 13:35] LABS: Partial Thromboplast Time 29.6 Seconds (24.1-36.2)
[2024-12-13] MEDS: HEPARIN/D5w 25,000 UNITS 25,000 UNITS/250 ML IV.SOLN. 8.1 UNITS CONT INF (13:42)
[2024-12-13] MEDS: Nitroglycerin Oint 1 INCH PACKET TD (13:52)
[2024-12-13 14:47] LABS: Pro- Brain NATRIURETIC PEPTIDE 3623 pg/mL (<=1800)
[2024-12-13 15:22] LABS: Troponin T High Sens 2 HR 309 ng/L (<=14)
[2024-12-13 17:59] LABS: Troponin T High Sens 4 HR 337 ng/L (<=14)
[2024-12-13 20:17] LABS: Partial Thromboplast Time 112.3 Seconds (24.1-36.2)
[2024-12-14] VITALS (15 sets, daily range): BP systolic 118–189; BP diastolic 74–102; PULSE 65–80; RESP 16–23; TEMP 36.3–36.7; O2SAT 93–97
[2024-12-14 04:04] LABS: Hematocrit 32.6 % (37-47); Hemoglobin 11.0 g/dL (12.0-15.0); Immature Granulocytes Count 0.020 X10^3/uL (0.0-0.0); Mean Corp Hgb Conc 33.7 g/dL (32-36); Mean Corpuscular Volume 87.6 fL (81-99); Mean Platelet Vol. 10.5 fl (6.2-12.0); NRBC Flagged by Analyzer 0 % (0-5); Platelet Count 159 K/mm3 (150-450); RBC Distribution Width CV 13.5 % (11.6-14.6); RBC Distribution Width SD 42.7 fl (35.1-43.9); Red Blood Count 3.72 M/mm3 (4.2-5.4); White Blood Count 6.7 K/mm3 (4.4-11.0)
[2024-12-14] MEDS: Aspirin E.C. 81 MG Tablet PO (04:12)
[2024-12-14 04:19] LABS: Partial Thromboplast Time 47.8 Seconds (24.1-36.2)
[2024-12-14 04:48] LABS: Anion Gap 10 (5-15); BUN 12 mg/dL (4-19); BUN/Creat Ratio 18.4 RATIO (10-20); Calcium,Total 8.4 mg/dL (7.6-11.0); Carbon Dioxide 26.1 mmol/L (21.0-32.0); Chloride 98 mmol/L (98-108); Estimated Creatinine Clearance 56.84 ml/min (50-250); Glucose 104 mg/dL (70-99); Potassium 3.4 mmol/L (3.3-5.1)
[2024-12-14] MEDS: 0.9% Saline Lock 10 ML Syringe IV ×2 (05:30→06:28)
[2024-12-14] MEDS: 0.9% Normal Saline (1000mL) 1,000 ML 15 ML IV (07:43)
[2024-12-14] MEDS: NIFEdipine 60 MG Tablet PO (11:01)
== END 2024-12-14 17:35 | disposition home or self-care (01) | DRG 280 ==
LOC: ED 14:29 → PCU 14:39
PROVIDERS: Admitting Provider Hospitalist; Emergency Provider Emergency Medicine; PCP Family Medicine; Visit Provider Internal Medicine
DX: I21.4 Non-ST elevation (NSTEMI) myocardial infarction (principal); I50.31 Acute diastolic (congestive) heart failure; T82.855A Stenosis of coronary artery stent, initial encounter; I11.0 Hypertensive heart disease with heart failure; F32.A Depression, unspecified; I65.21 Occlusion and stenosis of right carotid artery; E78.5 Hyperlipidemia, unspecified; E53.8 Deficiency of other specified B group vitamins; K21.9 Gastro-esophageal reflux disease without esophagitis; I25.10 Atherosclerotic heart disease of native coronary artery without angina pectoris; F41.9 Anxiety disorder, unspecified; I16.0 Hypertensive urgency; Y71.2 Prosthetic and other implants, materials and accessory cardiovascular devices associated with adverse incidents; Z95.5 Presence of coronary angioplasty implant and graft; M81.0 Age-related osteoporosis without current pathological fracture; Z79.82 Long term (current) use of aspirin; Z90.49 Acquired absence of other specified parts of digestive tract; Z79.899 Other long term (current) drug therapy; Z85.038 Personal history of other malignant neoplasm of large intestine; Z87.891 Personal history of nicotine dependence; Z98.890 Other specified postprocedural states
CPT/HCPCS: 36415; 71045; 80048; 83880; 84484; 85025; 85610; 85730; 93005; 93306; 93458; 99152; 99153; 99285; C1887; Q9967; A4216; C1769; C1894; J1938

== ENCOUNTER → 2024-12-18 | Outpatient (CLI) | payer MEDICARE, OTHER, SELFPAY ==
[2024-12-18 13:35] LABS: Pro- Brain NATRIURETIC PEPTIDE 850 pg/mL (<=1800)
== END | disposition home or self-care (01) ==
LOC: LAB 12:31
PROVIDERS: PCP Family Medicine; Referring Provider Internal Medicine Cardiovascular Disease; Visit Provider Internal Medicine Cardiovascular Disease
DX: R06.02 Shortness of breath (principal)
CPT/HCPCS: 36415; 83880

== ENCOUNTER 2024-12-24 04:00 | Emergency (ER) | payer MEDICARE, OTHER, SELFPAY ==
[2024-12-24] VITALS (12 sets, daily range): BP systolic 98–136; BP diastolic 64–94; PULSE 75–145; RESP 15–25; TEMP 36.7; O2SAT 93–98; BMI 26.5
[2024-12-24] MEDS: 0.9% Normal Saline (1000mL) 1,000 ML 999 ML IV (04:19)
[2024-12-24 04:22] LABS: Hematocrit 33.4 % (37-47); Hemoglobin 11.2 g/dL (12.0-15.0); Immature Granulocytes Count 0.060 X10^3/uL (0.0-0.0); Mean Corp Hgb Conc 33.5 g/dL (32-36); Mean Corpuscular Volume 88.6 fL (81-99); Mean Platelet Vol. 10.8 fl (6.2-12.0); NRBC Flagged by Analyzer 0 % (0-5); Platelet Count 256 K/mm3 (150-450); RBC Distribution Width CV 13.4 % (11.6-14.6); RBC Distribution Width SD 43.6 fl (35.1-43.9); Red Blood Count 3.77 M/mm3 (4.2-5.4); White Blood Count 5.2 K/mm3 (4.4-11.0)
[2024-12-24 04:39] LABS: Prothrombin Time (Protime)PT. 13.5 SECONDS (11.7-14.9)
[2024-12-24 04:40] LABS: Partial Thromboplast Time 37.9 Seconds (24.1-36.2)
[2024-12-24 04:52] LABS: Anion Gap 13 (5-15); BUN 15 mg/dL (4-19); BUN/Creat Ratio 18.9 RATIO (10-20); Calcium,Total 8.5 mg/dL (7.6-11.0); Carbon Dioxide 21.3 mmol/L (21.0-32.0); Chloride 95 mmol/L (98-108); Estimated Creatinine Clearance 58.42 ml/min (50-250); Glucose 121 mg/dL (70-99); Magnesium 2.1 mg/dL (1.5-2.2); Potassium 3.9 mmol/L (3.3-5.1)
[2024-12-24] MEDS: APIXABAN 5 MG TABLET PO (05:36)
== END 2024-12-24 07:45 | disposition home or self-care (01) ==
PROVIDERS: Emergency Provider Emergency Medicine; PCP Family Medicine; Visit Provider Emergency Medicine
DX: I48.91 Unspecified atrial fibrillation (principal); I10 Essential (primary) hypertension; E78.5 Hyperlipidemia, unspecified; I44.7 Left bundle-branch block, unspecified; F41.9 Anxiety disorder, unspecified; I25.10 Atherosclerotic heart disease of native coronary artery without angina pectoris; F32.A Depression, unspecified; K21.9 Gastro-esophageal reflux disease without esophagitis; M85.80 Other specified disorders of bone density and structure, unspecified site; Z95.5 Presence of coronary angioplasty implant and graft; Z90.49 Acquired absence of other specified parts of digestive tract; Z79.82 Long term (current) use of aspirin; Z79.899 Other long term (current) drug therapy; Z85.038 Personal history of other malignant neoplasm of large intestine; Z87.891 Personal history of nicotine dependence
CPT/HCPCS: 80048; 83735; 84443; 85025; 85610; 85730; 92960; 93005; 96361; 96374; 96375; 99285

== ENCOUNTER → 2025-01-12 | Outpatient (CLI) | payer MEDICARE, OTHER, SELFPAY ==
--- NOTE | 2025-01-12 09:57 | STEWCON_ITS ---
Reason For Study Reason For Study: CAD Stress Results Protocol: Franklin Protocol WITH DEFINITY Maximum Predicted HR: 145 bpm Target HR: 123 bpm % Maximum Predicted HR: 94 % Heart Stage Duration Rate BP Comment (mm:ss) (bpm) Baseline 74 168/84No Chest Pain; 2 ML Diluted Definity No Chest Pain; Mild Dyspnea; Back Pain; Rate Dependent Bundle Branch Franklin Protocol Stage I 3:00 133 204/90Block Franklin Protocol Stage II 0:16 137 / No Chest Pain; Moderate Dyspnea; Rate Dependent Bundle Branch Block Recovery 81 152/90No Chest Pain Stress Duration: 3:16 mm:ss Maximum Stress HR: 137 bpm METS: 4 Baseline Echocardiogram Findings Stress Echo Wall motion Data Resting WM Intermediate WM Stress WM ECHO/Stress Test Echo W/Contrast Interpretation Summary Exercise stress echocardiogram. 74-year-old lady with a history of coronary disease. Resting EKG demonstrates normal sinus rhythm with a rate of 75 bpm resting bloo d pressure is 168/84 mmHg. The patient exercised according to the regular Franklin protocol for total duration of 3 minut es and 16 seconds. The maximal heart rate attained 137 bpm which was 94% of max impacted heart rate the maximum workload was 4.6 metabolic equivalents. The patient maintained sinus rhythm throughout the recording with occasional premat ure ventricular complexes present. At a rate of approximately 129 bpm the patient developed a rate dependent bundle bra nch block morphology no angina or symptoms were noted except for moderate dyspnea. The peak blood pressure was 22 0/90 mmHg which was a hypertensive response to exercise. Resting echocardiogram demonstrated preserved ejection fraction with Definity e nhancement at 55%. With peak exercise there was thickening of all gerardo and reduction of the ventricular cavity size. The peak ejection fraction was approximately 65%. Conclusion: Exercise stress echocardiogram with no evidence of ischemia noted at a low to m oderate workload. Bundle branch morphology with rate dependence noted. Ordering Physician: Jeb Turner Referring Physician: Jeb Turner Performed By: Brodwolf, Uriah, RCS
== END | disposition home or self-care (01) ==
LOC: CVS 09:56
PROVIDERS: PCP Family Medicine; Referring Provider Internal Medicine Cardiovascular Disease; Visit Provider Internal Medicine Cardiovascular Disease
DX: I50.9 Heart failure, unspecified (principal); I25.2 Old myocardial infarction; I25.10 Atherosclerotic heart disease of native coronary artery without angina pectoris; Z95.5 Presence of coronary angioplasty implant and graft; R06.02 Shortness of breath
CPT/HCPCS: 93017; 93350; Q9957; A4216; C8928

== ENCOUNTER → 2025-02-01 | Outpatient (CLI) | payer MEDICARE, OTHER, SELFPAY ==
--- NOTE | 2025-02-01 16:00 | BI_ITS ---
EXAM: SCRN MAMM (CAD)W/EWA BILAT DATE: 02/01/2025 CLINICAL HISTORY: F, Age 74 y/o , SCREEN FOR BREAST CANCER TECHNIQUE: Procedure Code: [id number] Modality: MG Procedure: SCRN MAMM (CAD)W/EWA BILAT COMPARISON: Prior exam(s) dated 01/20/2024, 01/07/2023, and 01/02/2022. FINDINGS: TISSUE DENSITY: The breasts are heterogeneously dense, which may obscure small masses. Bilateral Breast Mammographic Findings: Benign-appearing round calcifications are seen in both breasts. There are no suspicious masses, suspicious clustered microcalcifications, architectural distortion or secondary signs of malignancy identified in either breast. BI/SCRN MAMM (CAD)W/EWA BILAT IMPRESSION: Benign screening mammogram. OVERALL FINAL ASSESSMENT BI-RADS 2: BENIGN RECOMMENDATION: Routine annual follow-up in 1 Year Additional Recommendation none A letter with findings and recommendations will be mailed to the patient. Reading Location: [id number]
== END | disposition home or self-care (01) ==
LOC: OPBI 15:45
PROVIDERS: PCP Family Medicine; Referring Provider Obstetrics & Gynecology; Visit Provider Obstetrics & Gynecology
DX: Z12.31 Encounter for screening mammogram for malignant neoplasm of breast (principal)
CPT/HCPCS: 77063; 77067

== ENCOUNTER → 2025-02-08 | Outpatient (CLI) | payer MEDICARE, OTHER, SELFPAY ==
[2025-02-08 09:28] LABS: Anion Gap 9 (5-15); BUN 15 mg/dL (4-19); BUN/Creat Ratio 20.3 RATIO (10-20); Calcium,Total 9.3 mg/dL (7.6-11.0); Carbon Dioxide 26.6 mmol/L (21.0-32.0); Chloride 101 mmol/L (98-108); Glucose 110 mg/dL (70-99); Potassium 4.6 mmol/L (3.3-5.1)
[2025-02-08 10:04] LABS: AST(SGOT) 21 U/L (<=31); Alanine Aminotransfer ALT/SGPT 14 U/L (<=34); Albumin, Serum 4.0 g/dL (3.4-4.8); Alkaline Phosphatase 61 U/L (35-104); Bilirubin, Direct 0.23 mg/dL (0.00-0.30); Cholesterol 181 mg/dL (<=200); Globulin 2.3 g/dL (2.2-4.2); Low Density Lipoprotein Calc. 71 mg/dL; Triglycerides 84 mg/dL; Very Low Density Lipoprotein 17 mg/dL (5-40); cholesterol:hdl ratio screen 1.90
== END | disposition home or self-care (01) ==
LOC: LAB 07:32
PROVIDERS: PCP Family Medicine; Referring Provider Physician Assistant Medical; Visit Provider Physician Assistant Medical
DX: I10 Essential (primary) hypertension (principal); R79.89 Other specified abnormal findings of blood chemistry; E78.00 Pure hypercholesterolemia, unspecified
CPT/HCPCS: 36415; 80048; 80061; 80076; 84439; 84443

== ENCOUNTER → 2025-02-11 | Outpatient (CLI) | payer MEDICARE, OTHER, SELFPAY ==
--- NOTE | 2025-02-11 09:50 | VDLE_ITS ---
Reason For Study Reason For Study: LLE Swelling RIGHT LEFT CFV is compressible, spontaneous, phasic, competent GSV is normal. and demonstrates normal augmentation. CFV is compressible, spontaneous, phasic, competent, Procedure and demonstrates normal augmentation. This is a venous duplex using B-mode, color flow and FV is compressible, spontaneous, phasic, competent spectral Doppler. and demonstrates normal augmentation. Exam performed in department. POP V is compressible, spontaneous, phasic, competent The exam was diagnostic. and demonstrates normal augmentation. T/P Trunk is compressible. PTV is compressible. LT PerV is compressible. Non- Vascularized anechoic area noted at Lt Medial Knee measuring approximately 2.59 x 0.84cm. VL/Venous Duplex US, Unilateral Interpretation Summary Deep veins of the left lower extremity are patent and compressible segmentally. There is no evidence of left lower extremity deep vein thrombosis. Valvular competence appears intact within the p roximal deep venous system on the left . The left great saphenous vein appears patent and compressible segmentally. A no n-vascular, anechoic structure is noted on the left medial knee, measuring 2.59 cm x 0.84 cm. This may represent a mellisa jennifer or seroma. Clinical correlation is advised. The right common femoral vein is patent and compressible . Ordering Physician: Etienne Donahue Referring Physician: Etienne Donahue Performed By: Winston Talley RVT
== END | disposition home or self-care (01) ==
LOC: CVS 09:49
PROVIDERS: PCP Family Medicine; Referring Provider Family Medicine; Visit Provider Family Medicine
DX: R60.0 Localized edema (principal)
CPT/HCPCS: 93971

== ENCOUNTER → 2025-03-02 | Outpatient (CLI) | payer MEDICARE, OTHER, SELFPAY ==
--- NOTE | 2025-03-02 09:57 | US_ITS ---
PROCEDURE: CYST PUNCTURE 03/02/2025 REASON FOR EXAM: Painful Nascimento's cyst at the posterior left knee. TECHNIQUE: Procedure Code: USCP Modality: US Procedure: CYST PUNCTURE COMPARISON: None available. FINDINGS: Initial imaging shows confirmation of the Nascimento's cyst of the posterior left knee, extending superiorly from the joint level. It is measured at 2.7 x 0.4 x 0.8 cm. Following informed consent, an using standard sterile technique, ultrasound- guided aspiration of the left Nascimento's cyst was performed via a posterior approach. 2% lidocaine local anesthesia was followed by placement of a 20 gauge spinal needle into the Nascimento's cyst under sonographic guidance. Approximately 1.8 mL viscous yellow fluid was successfully removed. No complication was encountered, the patient left the department in good condition without significant complaint. US/Cyst Puncture IMPRESSION: Successful left Nascimento's cyst aspiration. Reading Location: [place] [id number]
== END | disposition home or self-care (01) ==
LOC: CT 09:56
PROVIDERS: PCP Family Medicine; Referring Provider Family Medicine; Visit Provider Family Medicine
DX: M71.22 Synovial cyst of popliteal space [Baker], left knee (principal)
CPT/HCPCS: 20610; 76942